=== PATIENT | female | born 1945 | race Caucasian/White ===

== ENCOUNTER → 2017-08-24 16:17 | Outpatient (CLI) | payer MEDICARE, OTHER, SELFPAY ==
[2017-08-24 17:43] LABS: Rheumatoid Factor < 8.6 IU/mL (<12.0)
[2017-08-28 22:33] LABS: ANA Screen NEGATIVE (Negative); DNA Antibody Crithidia IFA NEGATIVE (Negative); Rheumatoid Factor <14 IU/mL; Sjogren Antiboday SS-A <1.0 NEG AI (<1.0 NEGATIVE); Sjogren Antiboday SS-B <1.0 NEG AI (<1.0 NEGATIVE); Sm Antibody <1.0 NEG AI (<1.0 NEGATIVE); Sm/RNP Antibody <1.0 NEG AI (<1.0 NEGATIVE)
[2017-09-04 13:42] LABS: SS A Ro Sjogrens Antibody < 1.0; SS B La Sjogrens Antibody < 1.0
== END ==
PROVIDERS: Family Provider Physician Assistant; PCP Physician Assistant; Visit Provider Physician Assistant
DX: R68.2 Dry mouth, unspecified (principal); M35.00 Sjogren syndrome, unspecified
CPT/HCPCS: 36415; 86038; 86235; 86430

== ENCOUNTER → 2017-09-24 10:58 | Outpatient (CLI) | payer MEDICARE, OTHER, SELFPAY ==
--- NOTE | 2017-09-24 | DI.MG.S_ITS ---
BILATERAL DIGITAL SCREENING MAMMOGRAM 3D/2D WITH CAD: 09/24/2017 CLINICAL: Routine screening. Comparison is made to exams dated: 05/29/2016 mammogram, 02/20/2014 mammogram, and 02/04/2013 mammogram - [facility]. The tissue of both breasts is predominantly fatty. Current study was also evaluated with a Computer Aided Detection (CAD) system. No significant masses, calcifications, or other findings are seen in either breast. There has been no significant interval change. IMPRESSION: NEGATIVE There is no mammographic evidence of malignancy. A 1 year screening mammogram is recommended. This exam was interpreted at Station ID: [id number]. NOTE: For mammograms, a report in lay terms will be sent to the patient. Approximately 15% of breast malignancies will not be visualized mammographically. In the management of a palpable breast mass, a negative mammogram must not discourage biopsy of a clinically suspicious lesion. Electronically Signed By: Destinee bains/yobnai:09/24/2017 13:22:57 letter sent: Normal Exam ACR BI-RADS Category 1: Negative 3341F
== END ==
PROVIDERS: Family Provider Physician Assistant; PCP Physician Assistant; Visit Provider Physician Assistant
DX: Z12.31 Encounter for screening mammogram for malignant neoplasm of breast (principal)
CPT/HCPCS: 77063; 77067

== ENCOUNTER → 2017-12-27 20:29 | Outpatient (CLI) | payer MEDICARE, OTHER, SELFPAY ==
--- NOTE | 2017-12-27 20:34 | DI.MRI.S_ITS ---
PROCEDURE: MR ANKLE RT WO CON INDICATIONS: ACHILLES RUPTURE TECHNIQUE: Noncontrast sagittal T1 spin echo and T2 fast spin echo with fat saturation, axial proton density fast spin echo and T2 fast spin echo with fat saturation, coronal T1 spin echo and T2 fast spin echo with fat saturation through the ankle/hindfoot. COMPARISON: None. FINDINGS: Image quality: Excellent. Bones and joints: No discrete fracture identified. There is marrow edema involving the lateral malleolus and lateral talar dome suggestive of contusions although the exact age is indeterminate. This is in the region of the posterior tibiofibular ligament which demonstrates intrasubstance and adjacent soft tissue edema and could reflect sprain. Theoretically, long-standing osteochondral defect at the lateral talar dome is possible. No hindfoot coalitions. No pathologic joint effusions. Medial structures: The posterior tibialis, flexor digitorum longus, and flexor hallucis longus tendons are intact. The posterior tibial neurovascular bundle appears normal within the tarsal tunnel, without extrinsic mass effect. The deep layer (anterior and posterior tibiotalar ligaments) and superficial layer (tibionavicular, tibiospring, and tibiocalcaneal ligaments) of the deltoid ligament appear normal. The spring ligament components (superomedial calcaneonavicular, medioplantar oblique calcaneonavicular, and inferoplantar longitudinal ligaments) are intact. Lateral structures: The anterior talofibular, calcaneofibular, and posterior talofibular ligaments appear intact. More superiorly, the anterior tibiofibular ligament appears intact The tibiofibular syndesmosis is normal in width at 2 mm or less. The peroneus longus and brevis tendons appear intact although there is peroneus brevis tendinopathy and possible subtle longitudinal split tear image 22 series 3. Adjacent bony peroneal tubercle and retrotrochlear prominence are normal in size. The sinus tarsi demonstrates normal fatty signal, without edema, fibrosis, or cyst formation. Visualized sinus tarsi components (cervical ligament, interosseous talocalcaneal ligament, roots of the inferior extensor retinaculum) appear normal. The calcaneonavicular and calcaneocuboid components of the bifurcate ligament appear intact. The dorsal calcaneocuboid ligament appears intact. Anterior structures: The tibialis anterior, extensor hallucis longus, and extensor digitorum longus tendons appear intact. The dorsal talonavicular ligament appears intact. Posterior and plantar structures: Postsurgical changes related to prior Achilles tendon reconstruction however there is intrasubstance signal change in T2 hyperintensity/edema and appearance of partial high grade rupture image 17 series 6. The defect appears approximately 2.1 cm in cephalocaudad dimension and is located approximately 5.9 cm cephalad to the calcaneal attachment. Mild medial band plantar fasciitis, technically age-indeterminate finding. IMPRESSION: High-grade partial rupture of the Achilles tendon (status post previous repair) as detailed above. Soft tissue edema at the posterior aspect of the distal tibiofibular syndesmosis suggestive of posterior tibiofibular sprain, and tibiofibular syndesmotic injury. Adjacent marrow edema in the fibula and talar dome could reflect reactive change however differential includes pre-existing lateral talar dome osteochondral defect and/or acute marrow contusions as discussed above. Please correlate clinically. No definite tibiofibular syndesmotic malalignment identified. Age-indeterminate peroneal brevis tendinopathy and small longitudinal split tear. Mild medial band plantar fasciitis. Dictated by: Robert Adame M.D. on 12/31/2017 at 8:56 Approved by: Robert Adame M.D. on 12/31/2017 at 9:13
== END ==
PROVIDERS: Family Provider Physician Assistant; PCP Physician Assistant; Visit Provider Podiatrist
DX: S86.011A Strain of right Achilles tendon, initial encounter (principal); M72.2 Plantar fascial fibromatosis
CPT/HCPCS: 73721

== ENCOUNTER → 2018-06-15 08:05 | Outpatient (CLI) | payer MEDICARE, OTHER, SELFPAY ==
[2018-06-15 09:19] LABS: Hematocrit 39.6 % (36-46); Hemoglobin 13.1 g/dL (12.0-16.0); Mean Corpuscular HGB Conc 33.1 % (30-36); Mean Corpuscular Hemoglobin 30.6 PG (26-34); Mean Corpuscular Volume 92.6 fL (80-100); Platelet Count 239 X10^3/uL (150-400); Red Blood Cell Count 4.27 X10^6/uL (4.0-5.2); Red Cell Distribution Width 12.4 % (11.6-14.8); White Blood Cell Count 7.1 X10^3/uL (4.5-11.0)
[2018-06-15 09:27] LABS: Alanine Aminotransferase 20 IU/L (9-52); Albumin 3.9 g/dL (3.5-5.0); Albumin Globulin Ratio 1.4 (1.0-2.8); Alkaline Phosphatase 90 U/L (38-126); Aspartate Aminotransferase 30 IU/L (14-36); BUN Creatinine Ratio 17.5 (6-22); Bilirubin Total 0.2 mg/dL (0.2-1.3); Blood Urea Nitrogen 14 mg/dL (7-17); Calcium 8.9 mg/dL (8.4-10.2); Carbon Dioxide 29 mmol/L (22-32); Chloride 101 mmol/L (98-107); Cholesterol 181 mg/dL (140-199); Estimated Glomerular Filt Rate > 60.0 mL/min (>60); Globulin 2.7 g/dL (1.7-4.1); Glucose 102 mg/dL (80-110); HDL Cholesterol 36 mg/dL (40-60); HEMOLYSIS < 15 (0-50); LDL Cholesterol Calculated 117 mg/dL (<100); Potassium 4.4 mmol/L (3.4-5.1); Sodium 140 mmol/L (137-145); Total Protein 6.6 g/dL (6.3-8.2); Triglycerides 140 mg/dL (35-150)
[2018-06-15 10:09] LABS: Neutrophils Absolute Manual 4686 /uL (3000-5900); Total Cells Counted 100
[2018-06-15 10:10] LABS: RBC Morphology Normal Morphology
[2018-06-15 11:19] LABS: Thyroid Stimulating Hormone 4.94 uIU/mL (0.47-4.68)
[2018-06-17 18:02] LABS: ANA Screen, IFA Negative (Negative)
== END ==
PROVIDERS: PCP Internal Medicine; Visit Provider Internal Medicine
DX: I10 Essential (primary) hypertension (principal); R68.2 Dry mouth, unspecified; E78.6 Lipoprotein deficiency; E03.9 Hypothyroidism, unspecified
CPT/HCPCS: 36415; 80053; 80061; 84443; 85025; 86038

== ENCOUNTER → 2018-07-05 17:33 | Outpatient (CLI) | payer MEDICARE, OTHER, SELFPAY ==
--- NOTE | 2018-07-05 17:35 | DI.MRI.S_ITS ---
PROCEDURE: MR SHOULDER RT WO CON INDICATIONS: DISORDER OF SYNOVIUM AND TENDON, RIGHT TECHNIQUE: Noncontrast oblique coronal T2 fast spin echo with fat saturation, oblique sagittal T1 spin echo and T2 fast spin echo with fat saturation, axial T1 spin echo and T2 fast spin echo with fat saturation through the shoulder. COMPARISON: [facility], CR, XR SHOULDER 2+ VIEWS RIGHT, 07/02/2018, 9:58. FINDINGS: Image quality: Shoulder pain resulted in the patient requesting that the examination stopped to reposition herself, and 4 pulse sequences were obtained of the patient requested termination of the study before all pulse sequences couldn't be acquired. The study is diagnostic, in my opinion, for the purposes of documenting absence of rotator cuff tear or trauma.. Rotator cuff: The supraspinatus, infraspinatus, and subscapularis tendons appear intact throughout but there is thickening of and edema within the middle and lateral thirds of the supraspinatus tendon. Tendinopathy appears present, likely due to chronic impingement given the presence of moderate degenerative osteoarthritis at the a.c. joint producing fibrous and osseous hypertrophy directed inferiorly at the normal course of the supraspinatus tendon and also the presence of inferior tilt of the lateral acromion further impinging on this area. Sagittal images demonstrate no muscle atrophy. Bones and bursae: No bone marrow contusions or fractures. No acromioclavicular joint degeneration. The acromion demonstrates conventional anatomy, without an os acromiale. No pathologic subacromial-subdeltoid or subcoracoid bursal fluid is present. Capsule and soft tissues: In the absence of intra-articular contrast, the labrum and glenohumeral ligaments appear intact. The long head of the biceps tendon demonstrates normal location and morphology. The rotator interval appears normal, without fibrosis. The coracohumeral ligament is normal in thickness. There is subacromial/subdeltoid mild excess fluid within the bursal space indicating presence of bursitis. IMPRESSION: Chronic impingement syndrome likely is present given the moderate fibrous and osseous hypertrophy directed inferiorly from the a.c. joint degeneration at the normal course of the supraspinatus tendon. Additional impingement is contributed by inferior tilt of the lateral acromion and the lateral two thirds of the supraspinatus tendon is moderately edematous and thickened. Moderate excess of bursal fluid in the subacromial/subdeltoid bursal space indicates presence of bursitis. No osseous trauma found, no marrow space lesion identified. Dictated by: Mark Rubio M.D. on 07/09/2018 at 15:05 Approved by: Mark Rubio M.D. on 07/09/2018 at 15:10
== END ==
PROVIDERS: PCP Internal Medicine; Visit Provider Orthopaedic Surgery
DX: M67.911 Unspecified disorder of synovium and tendon, right shoulder (principal); M75.41 Impingement syndrome of right shoulder
CPT/HCPCS: 73221

== ENCOUNTER → 2018-07-19 15:04 | Outpatient (CLI) | payer MEDICARE, OTHER, SELFPAY ==
--- NOTE | 2018-07-19 | DI.CT.S_ITS ---
PROCEDURE: CT ABDOMEN PELVIS WO CON INDICATIONS: RIGHT FLANK PAINFUL HEMATURIA TECHNIQUE: Noncontrast 5 mm thick sections acquired from the diaphragms to the symphysis. 5 mm coronal and sagittal reformats were then performed. For radiation dose reduction, the following was used: automated exposure control, adjustment of mA and/or kV according to patient size. COMPARISON: [facility], CT, KIDNEY/ URETER/BLADDER, 08/24/2014, 0:59. FINDINGS: Image quality: Excellent. ABDOMEN: Lung bases: Lung bases are clear. Heart size is normal. Coronary artery calcifications. Solid organs: Again noted is diffuse hepatic steatosis, prominent. There is no focal liver mass identified. Gallbladder is unremarkable. Pancreas is normal in contours. Spleen is normal in size. No adrenal nodules. There is no evidence of renal stone or hydronephrosis or ureteral stone. There is a calcification present in the right abdomen on image 39/4 which is not in the right ureter. It was present on the previous study as well. Peritoneum and bowel: Unenhanced bowel loops demonstrate normal wall thickness and caliber. No free fluid or air. Sigmoid diverticulosis without evidence of diverticulitis. Nodes and vessels: No retroperitoneal or mesenteric adenopathy by size criteria. Aorta and inferior vena cava are normal in caliber. Miscellaneous: No ventral hernias. PELVIS: Genitourinary: Bladder wall thickness is normal. Remote hysterectomy. Miscellaneous: No inguinal hernias or adenopathy. Bones: No suspicious bony lesions. No vertebral body compression fractures. IMPRESSION: 1. No findings to explain right flank pain or hematuria. 2. Diffuse hepatic steatosis. 3. Remote hysterectomy Dictated by: Messi Russell M.D. on 07/19/2018 at 16:33 Approved by: Messi Russell M.D. on 07/19/2018 at 16:41
== END ==
PROVIDERS: PCP Internal Medicine; Visit Provider Student in an Organized Health Care Education/Training Program
DX: R10.9 Unspecified abdominal pain (principal); R31.9 Hematuria, unspecified; K76.0 Fatty (change of) liver, not elsewhere classified; K57.30 Diverticulosis of large intestine without perforation or abscess without bleeding; Z90.710 Acquired absence of both cervix and uterus
CPT/HCPCS: 74176

== ENCOUNTER → 2018-12-12 16:23 | Outpatient (ROUT) | payer MEDICARE, OTHER, SELFPAY ==
[2018-12-12 16:38] LABS: Alanine Aminotransferase 34 IU/L (9-52); Albumin Globulin Ratio 1.5 (1.0-2.8); Alkaline Phosphatase 82 U/L (38-126); Aspartate Aminotransferase 31 IU/L (14-36); BUN Creatinine Ratio 18.9 (6-22); Bilirubin Total 0.3 mg/dL (0.2-1.3); Blood Urea Nitrogen 17 mg/dL (7-17); Calcium 9.5 mg/dL (8.4-10.2); Carbon Dioxide 32 mmol/L (22-32); Chloride 98 mmol/L (98-107); Cholesterol 215 mg/dL (140-199); Estimated Glomerular Filt Rate > 60.0 mL/min (>60); Globulin 2.7 g/dL (1.7-4.1); Glucose 80 mg/dL (80-110); HDL Cholesterol 48 mg/dL (40-60); HEMOLYSIS < 15 (0-50); LDL Cholesterol Calculated 145 mg/dL (<100); Potassium 3.9 mmol/L (3.4-5.1); Sodium 138 mmol/L (137-145); Total Protein 6.7 g/dL (6.3-8.2); Triglycerides 110 mg/dL (35-150)
[2018-12-12 16:39] LABS: Add Manual Diff / Slide Review NO; Basophils Absolute Auto 0 /uL (0-100); Basophils Percent Auto 0.3 % (0-2); Eosinophils Absolute Auto 0 /uL (0-450); Hematocrit 40.4 % (36-46); Hemoglobin 13.5 g/dL (12.0-16.0); Lymphocytes Absolute Auto 2000 /uL (1100-4500); Lymphocytes Percent Auto 17.8 % (25-40); Mean Corpuscular HGB Conc 33.3 % (30-36); Mean Corpuscular Hemoglobin 31.2 PG (26-34); Mean Corpuscular Volume 93.5 fL (80-100); Monocytes Absolute Auto 500 /uL (0-900); Monocytes Percent Auto 4.6 % (3-14); Neutrophils Absolute Auto 8700 /uL (1500-7000); Neutrophils Percent Auto 77.3 % (50-75); Platelet Count 279 X10^3/uL (150-400); Red Blood Cell Count 4.32 X10^6/uL (4.0-5.2); White Blood Cell Count 11.3 X10^3/uL (4.5-11.0)
== END ==
PROVIDERS: PCP Internal Medicine; Visit Provider Physician Assistant
DX: I10 Essential (primary) hypertension (principal); E03.9 Hypothyroidism, unspecified; E78.2 Mixed hyperlipidemia
CPT/HCPCS: 80053; 80061; 84439; 84443; 85025

== ENCOUNTER → 2018-12-19 08:58 | Outpatient (CLI) | payer MEDICARE, OTHER, SELFPAY ==
--- NOTE | 2018-12-19 | DI.MG.S_ITS ---
BILATERAL DIGITAL SCREENING MAMMOGRAM 3D/2D WITH CAD: 12/19/2018 CLINICAL: Routine screening. Comparison is made to exams dated: 09/24/2017 mammogram, 05/29/2016 mammogram, and 02/20/2014 mammogram - [facility]. There are scattered fibroglandular elements in both breasts. Current study was also evaluated with a Computer Aided Detection (CAD) system. No significant masses, calcifications, or other findings are seen in either breast. There has been no significant interval change. IMPRESSION: NEGATIVE There is no mammographic evidence of malignancy. A 1 year screening mammogram is recommended. This exam was interpreted at Station ID: [id number]. NOTE: For mammograms, a report in lay terms will be sent to the patient. Approximately 15% of breast malignancies will not be visualized mammographically. In the management of a palpable breast mass, a negative mammogram must not discourage biopsy of a clinically suspicious lesion. Electronically Signed By: Mark ching/yobani:12/19/2018 10:10:43 letter sent: Normal Exam ACR BI-RADS Category 1: Negative 3341F
== END ==
PROVIDERS: PCP Internal Medicine; Visit Provider Physician Assistant
DX: Z12.31 Encounter for screening mammogram for malignant neoplasm of breast (principal)
CPT/HCPCS: 77063; 77067

== ENCOUNTER → 2019-07-18 11:05 | Outpatient (CLI) | payer MEDICARE, OTHER, SELFPAY ==
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
[2019-07-18 12:37] LABS: Add Manual Diff / Slide Review NO; Basophils Absolute Auto 0 /uL (0-100); Basophils Percent Auto 0.1 % (0-2); Eosinophils Absolute Auto 0 /uL (0-450); Hematocrit 38.3 % (36-46); Hemoglobin 13.2 g/dL (12.0-16.0); Lymphocytes Absolute Auto 1700 /uL (1100-4500); Lymphocytes Percent Auto 31.4 % (25-40); Mean Corpuscular HGB Conc 34.5 % (30-36); Mean Corpuscular Hemoglobin 31.3 PG (26-34); Mean Corpuscular Volume 90.9 fL (80-100); Monocytes Absolute Auto 400 /uL (0-900); Monocytes Percent Auto 7.4 % (3-14); Neutrophils Absolute Auto 3400 /uL (1500-7000); Neutrophils Percent Auto 61.1 % (50-75); Platelet Count 248 X10^3/uL (150-400); Red Blood Cell Count 4.21 X10^6/uL (4.0-5.2); Red Cell Distribution Width 13.2 % (11.6-14.8); White Blood Cell Count 5.5 X10^3/uL (4.5-11.0)
[2019-07-18 13:02] LABS: Alanine Aminotransferase 25 IU/L (<35); Albumin 4.1 g/dL (3.5-5.0); Albumin Globulin Ratio 1.3 (1.0-2.8); Alkaline Phosphatase 106 U/L (38-126); Aspartate Aminotransferase 42 IU/L (14-36); BUN Creatinine Ratio 15.2 (6-22); Bilirubin Total 0.5 mg/dL (0.2-1.3); Blood Urea Nitrogen 14 mg/dL (7-17); Calcium 9.4 mg/dL (8.4-10.2); Carbon Dioxide 30 mmol/L (22-32); Chloride 102 mmol/L (98-107); Cholesterol 192 mg/dL (140-199); Estimated Glomerular Filt Rate 59.4 mL/min (>60); Globulin 3.2 g/dL (1.7-4.1); Glucose 96 mg/dL (80-110); HDL Cholesterol 33 mg/dL (40-60); HEMOLYSIS < 15 (0-50); LDL Cholesterol Calculated 123 mg/dL (<100); Potassium 4.3 mmol/L (3.4-5.1); Sodium 138 mmol/L (137-145); Total Protein 7.3 g/dL (6.3-8.2); Triglycerides 179 mg/dL (35-150)
[2019-07-18 13:08] LABS: NT-proBNP (BNP-Adult 18+) 62 pg/mL (<450)
[2019-07-18 13:57] LABS: Free T4, Direct Thyroxine 1.22 ng/dL (0.78-2.19)
== END ==
PROVIDERS: PCP Physician Assistant; Referring Provider Physician Assistant; Visit Provider Physician Assistant
DX: R06.02 Shortness of breath (principal); I10 Essential (primary) hypertension; J30.9 Allergic rhinitis, unspecified; E03.9 Hypothyroidism, unspecified; E78.2 Mixed hyperlipidemia
CPT/HCPCS: 36415; 71046; 80053; 80061; 83880; 84439; 84443; 85025

== ENCOUNTER → 2019-08-05 10:42 | Outpatient (CLI) | payer MEDICARE, OTHER, SELFPAY ==
[2019-08-06 10:50] LABS: COVID19 Sendout NOT DETECTED (Not Detect)
== END ==
PROVIDERS: PCP Physician Assistant; Visit Provider Nurse Practitioner
DX: Z01.812 Encounter for preprocedural laboratory examination (principal)
CPT/HCPCS: 87635

== ENCOUNTER → 2019-08-08 10:50 | Outpatient (CLI) | payer MEDICARE, OTHER, SELFPAY ==
--- NOTE | 2019-08-15 08:21 | PM.PFT.1 ---
Pulmonary Function Test Referral & Results Date Patient Seen: 08/08/19 Requesting provider: Katherine Gusman Results: The spirometry demonstrates an FVC of 2.46 L which is 97% of predicted. The FEV1 was measured at 1.98 L which is 105% of predicted. The FEV1/FVC ratio was 81 which is 107% of predicted. Following the administration of bronchodilator there was no appreciable change to above normal numbers. Lung volumes show an SVC of 2.41 L which is 94% of predicted. The diffusing capacity was measured at 17.30 which is 80% of predicted. The maximum voluntary ventilation was minimally reduced Interpretation: This study demonstrates normal spirometry There may be a slight reduction diffusing capacity but this could also be interpreted as normal, depending on whether not patient is anemic Basically this is probably a normal pulmonary function test
== END ==
PROVIDERS: PCP Physician Assistant; Referring Provider Physician Assistant; Visit Provider Physician Assistant
DX: J45.909 Unspecified asthma, uncomplicated (principal); Z87.891 Personal history of nicotine dependence; R06.02 Shortness of breath
CPT/HCPCS: 94060; 94726; 94729

== ENCOUNTER → 2019-12-06 11:26 | Outpatient (CLI) | payer MEDICARE, OTHER, SELFPAY ==
[2019-12-06 14:30] LABS: TSH w/ Reflex to FT4 1.46 uIU/mL (0.47-4.68)
== END ==
PROVIDERS: PCP Physician Assistant; Referring Provider Physician Assistant; Visit Provider Physician Assistant
DX: E03.9 Hypothyroidism, unspecified (principal)
CPT/HCPCS: 36415; 84443

== ENCOUNTER → 2020-05-27 12:28 | Outpatient (CLI) | payer MEDICARE, OTHER, SELFPAY ==
--- NOTE | 2020-05-27 | DI.RAD.S_ITS ---
PROCEDURE: XR LUMBAR SPINE 2-3V INDICATIONS: Spinal Stenosis TECHNIQUE: 3 views of the lumbar spine were acquired. COMPARISON: [facility], CT, CT ABDOMEN PELVIS WO CON, 07/19/2018, 15:10. FINDINGS: Bones: 5 [id number] vertebrae are present. There is normal bony alignment. No vertebral body compression fractures. No suspicious bony lesions. Soft tissues: Overlying bowel gas pattern is normal. No suspicious soft tissue calcifications. IMPRESSION: Degenerative disc disease along the thoracolumbar junction and lumbosacral spine is moderately severe superiorly and less prominent at L4-5 and L5-S1. Facet osteoarthritis from L1 through S1 is relatively prominent, to the degree that ankylosis or surgical fusion has been performed. No metallic surgical clips are present in this area. There is grade 1 anterolisthesis of L3 on L4, associated with degenerative disc disease and facet osteoarthritic change. Dictated by: Mark Rubio M.D. on 05/27/2020 at 17:21 Approved by: Mark Rubio M.D. on 05/27/2020 at 17:24
--- NOTE | 2020-05-27 12:43 | DI.CT.S_ITS ---
PROCEDURE: CT HEAD/BRAIN WO CON INDICATIONS: Mild cognitive impairment, so stated TECHNIQUE: Noncontrast 4.5 mm thick angled axial sections acquired from the foramen magnum to the vertex, with coronal and sagittal reformats. For radiation dose reduction, the following was used: automated exposure control, adjustment of mA and/or kV according to patient size. COMPARISON: [facility], CT, HEAD WITHOUT CONTRAST, 11/04/2014, 22:19. FINDINGS: Image quality: Excellent. CSF spaces: Basal cisterns are patent. No extra-axial fluid collections. The ventricles are symmetric in size and shape. Brain: No intracranial bleeds or masses. There is cerebral volume loss for age, with resultant ventricular and sulcal prominence. There are periventricular and deep white matter chronic small vessel ischemic changes. There is intracranial internal carotid artery atherosclerosis. Skull and face: Calvarium and visualized facial bones appear intact, without suspicious lesions. Sinuses: Visualized sinuses and mastoids are clear. IMPRESSION: Mild microvascular atherosclerotic change in the deep white matter of each hemisphere, no acute disease. Dictated by: Mark Rubio M.D. on 05/27/2020 at 13:02 Approved by: Mark Rubio M.D. on 05/27/2020 at 13:02
[2020-05-27 14:26] LABS: Add Manual Diff / Slide Review NO; Basophils Absolute Auto 0 /uL (0-100); Basophils Percent Auto 0.3 % (0-2); Eosinophils Absolute Auto 200 /uL (0-450); Eosinophils Percent Auto 2.8 % (2-4); Hematocrit 39.7 % (36-46); Hemoglobin 12.9 g/dL (12.0-16.0); Lymphocytes Absolute Auto 1900 /uL (1100-4500); Lymphocytes Percent Auto 28.3 % (25-40); Mean Corpuscular HGB Conc 32.6 % (30-36); Mean Corpuscular Hemoglobin 29.7 PG (26-34); Mean Corpuscular Volume 91.1 fL (80-100); Monocytes Absolute Auto 500 /uL (0-900); Monocytes Percent Auto 7.6 % (3-14); Neutrophils Absolute Auto 4200 /uL (1500-7000); Platelet Count 265 X10^3/uL (150-400); Red Blood Cell Count 4.36 X10^6/uL (4.0-5.2); Red Cell Distribution Width 13.3 % (11.6-14.8); White Blood Cell Count 6.9 X10^3/uL (4.5-11.0)
[2020-05-27 14:49] LABS: Alanine Aminotransferase 18 IU/L (<35); Albumin 4.1 g/dL (3.5-5.0); Albumin Globulin Ratio 1.3 (1.0-2.8); Alkaline Phosphatase 102 U/L (38-126); Aspartate Aminotransferase 35 IU/L (14-36); BUN Creatinine Ratio 15.5 (6-22); Bilirubin Total 0.3 mg/dL (0.2-1.3); Blood Urea Nitrogen 13 mg/dL (7-17); Calcium 9.4 mg/dL (8.4-10.2); Carbon Dioxide 28 mmol/L (22-32); Chloride 102 mmol/L (98-107); Estimated Glomerular Filt Rate > 60.0 mL/min (>60); Globulin 3.1 g/dL (1.7-4.1); Glucose 77 mg/dL (80-110); HEMOLYSIS < 15 (0-50); Potassium 4.1 mmol/L (3.4-5.1); Sodium 138 mmol/L (137-145); Total Protein 7.2 g/dL (6.3-8.2)
[2020-05-27 15:19] LABS: TSH w/ Reflex to FT4 4.38 uIU/mL (0.47-4.68)
[2020-05-27 15:33] LABS: Vitamin B12 > 1000 pg/mL (239-931)
[2020-05-27 17:51] LABS: Vitamin D 25 Hydroxy (D3) 58.7 ng/mL (30.0-100.0)
== END ==
PROVIDERS: PCP Physician Assistant; Referring Provider Physician Assistant; Visit Provider Physician Assistant
DX: M48.061 Spinal stenosis, lumbar region without neurogenic claudication (principal); G31.84 Mild cognitive impairment of uncertain or unknown etiology; M51.35 Other intervertebral disc degeneration, thoracolumbar region; M51.37 Other intervertebral disc degeneration, lumbosacral region; M47.816 Spondylosis without myelopathy or radiculopathy, lumbar region; M47.817 Spondylosis without myelopathy or radiculopathy, lumbosacral region; M43.16 Spondylolisthesis, lumbar region; R29.818 Other symptoms and signs involving the nervous system; F32.9 Major depressive disorder, single episode, unspecified; E55.9 Vitamin D deficiency, unspecified; E03.9 Hypothyroidism, unspecified; E78.5 Hyperlipidemia, unspecified
CPT/HCPCS: 36415; 70450; 72100; 80053; 82306; 82607; 84443; 85025

== ENCOUNTER → 2020-05-29 10:42 | Outpatient (CLI) | payer MEDICARE, OTHER, SELFPAY ==
--- NOTE | 2020-05-29 | DI.MG.S_ITS ---
BILATERAL DIGITAL SCREENING MAMMOGRAM 3D/2D WITH CAD: 05/29/2020 CLINICAL: Routine screening. Comparison is made to exams dated: 12/19/2018 mammogram, 09/24/2017 mammogram, 05/29/2016 mammogram, 02/20/2014 mammogram, and 02/04/2013 mammogram - [facility]. There are scattered fibroglandular elements in both breasts. Current study was also evaluated with a Computer Aided Detection (CAD) system. No significant masses, calcifications, or other findings are seen in either breast. There has been no significant interval change. IMPRESSION: NEGATIVE There is no mammographic evidence of malignancy. A 1 year screening mammogram is recommended. This exam was interpreted at Station ID: [id number]. NOTE: For mammograms, a report in lay terms will be sent to the patient. Approximately 15% of breast malignancies will not be visualized mammographically. In the management of a palpable breast mass, a negative mammogram must not discourage biopsy of a clinically suspicious lesion. Electronically Signed By: Reed head/yobani:05/31/2020 08:29:18 letter sent: Normal Exam ACR BI-RADS Category 1: Negative 3341F
== END ==
PROVIDERS: PCP Physician Assistant; Referring Provider Physician Assistant; Visit Provider Physician Assistant
DX: Z12.31 Encounter for screening mammogram for malignant neoplasm of breast (principal)
CPT/HCPCS: 77063; 77067

== ENCOUNTER → 2020-07-05 11:19 | Outpatient (CLI) | payer MEDICARE, OTHER, SELFPAY ==
--- NOTE | 2020-07-05 | DI.RAD.S_ITS ---
PROCEDURE: XR KNEE RT 3V INDICATIONS: Pain in right knee TECHNIQUE: 3 views of the knee were acquired. COMPARISON: None. FINDINGS: Bones: No fractures or dislocations. No suspicious bony lesions. Lateral patellofemoral joint space narrowing and small marginal osteophyte noted. Soft tissues: Small joint effusion present. Soft tissue calcifications. IMPRESSION: Lateral patellofemoral osteoarthrosis Dictated by: Niko Vázquez M.D. on 07/05/2020 at 15:21 Approved by: Niko Vázquez M.D. on 07/05/2020 at 15:24
== END ==
PROVIDERS: PCP Physician Assistant; Referring Provider Physician Assistant; Visit Provider Physician Assistant
DX: M25.561 Pain in right knee (principal)
CPT/HCPCS: 73562

== ENCOUNTER → 2020-07-20 15:45 | Outpatient (CLI) | payer MEDICARE, OTHER, SELFPAY ==
--- NOTE | 2020-07-20 | DI.MRI.S_ITS ---
PROCEDURE: MR KNEE RT WO CON INDICATIONS: Pain in right knee TECHNIQUE: Noncontrast sagittal PD fast spin echo and T2 fast spin echo with fat saturation, sagittal 3-D FLASH with fat saturation; coronal T1 spin echo and PD fast spin echo with fat saturation, and axial PD fast spin echo with fat saturation through the knee. COMPARISON: [facility], MR, KNEE WITHOUT CONTRAST, 07/12/2016, 10:49. FINDINGS: Image quality: Excellent. Menisci: The medial meniscus is grossly intact. There is ill-defined amorphous high signal intensity within the lateral meniscal body demonstrating superior and inferior articular surface extension, indicating degenerative tearing. Cruciate ligaments: The anterior and posterior cruciate ligaments appear intact. Medial structures: The medial collateral ligament appears intact. Visualized portions of the pes anserinus tendons appear normal. No abnormal bursal fluid. Lateral structures: The lateral collateral ligament demonstrates low-grade T2 signal elevation at the femoral origin. The long and short heads of the biceps femoris tendon appear intact. The popliteus tendon appears normal. Iliotibial band appears normal. Anterior structures: The quadriceps and patellar tendons appear intact. Moderate T2 signal elevation within the quadriceps and patellar tendons at the patellar insertion sites. Patellar alignment is normal. No femoral trochlear dysplasia or ventral trochlear prominence. No edema in the infrapatellar fat pad. Bones and cartilage: No bone marrow contusions or fractures. There is mild subchondral degenerative marrow edema within the lateral femoral trochlea, the patellar apex and lateral patellar facet. Moderate tricompartmental periarticular osteophyte formation is present. Mild articular cartilage loss diffusely overlies the weight-bearing aspects of the medial femoral condyle and medial tibial plateau, as well as the lateral femoral condyle and lateral tibial plateau. Superimposed high-grade articular cartilage loss overlies the mid/posterior weight-bearing aspect of the lateral femoral condyle. Severe articular cartilage loss overlies the lateral patellar facet and lateral femoral trochlea. Joint space: There is a moderate knee joint effusion and a moderate Burrows's cyst. Normal appearing synovial plicae are incidentally noted. IMPRESSION: 1. Tricompartmental osteoarthritis with associated articular cartilage loss, worst in the patellofemoral and lateral compartments. 2. Quadriceps and patellar tendinopathy. 3. Knee joint effusion and Burrows's cyst. 4. Low-grade partial thickness lateral collateral ligament tear. Dictated by: Vandana Cerda M.D. on 07/20/2020 at 16:56 Approved by: Vandana Cerda M.D. on 07/20/2020 at 16:58
== END ==
PROVIDERS: PCP Physician Assistant; Referring Provider Physician Assistant; Visit Provider Physician Assistant
DX: M17.11 Unilateral primary osteoarthritis, right knee (principal); M25.461 Effusion, right knee; M71.21 Synovial cyst of popliteal space [Baker], right knee; S83.421A Sprain of lateral collateral ligament of right knee, initial encounter
CPT/HCPCS: 73721

== ENCOUNTER → 2020-07-30 09:21 | Outpatient (CLI) | payer MEDICARE, OTHER, SELFPAY ==
--- NOTE | 2020-07-30 09:22 | DI.MRI.S_ITS ---
PROCEDURE: MR LUMBAR SPINE WO CON INDICATIONS: Spinal stenosis, lumbar region TECHNIQUE: Noncontrast sagittal T1 spin echo and T2 fast echo, sagittal STIR, axial T1 and T2 fast spin echo through the lumbar spine. In cases with scoliosis, additional coronal T2 fast spin echo may be performed. COMPARISON: [facility], CT, CT ABDOMEN PELVIS WO CON, 07/19/2018, 15:10. [facility] [place] , MR, LUMBAR SPINE W&W/O CONTRAST, 10/11/2009, 17:49. [facility] [place], CR, XR LUMBAR SPINE WITH OBLIQUES, 07/19/2020, 13:13. [facility], MR, L-SPINE WITHOUT CONTRAST, 11/25/2010, 18:23. FINDINGS: Image quality: This examination is limited by involuntary motion artifact. Images are repeated, with some improvement. Alignment and Curvature: There is accentuated lumbar lordosis. There is minimal retrolisthesis seen at L1-L2. Minimal anterolisthesis is seen at L3-L4. Bone Marrow: Marrow is of normal overall signal. No acute vertebral body compression fractures. Spinal Cord: Conus medullaris terminates at the L1 level. Visualized cord demonstrates normal signal and size. Paraspinous Soft Tissues: No paravertebral masses. Postoperative changes are seen throughout the posterior paraspinous soft tissues L2 through L5. Postoperative changes are seen, with removal of prominent portions of the posterior elements. Bone grafting material is noted. The bony postoperative changes are much better seen by prior CT. T12-L1: No significant abnormality is seen. L1-L2: Moderate loss of disc height is seen. Loss of disc signal is seen. Moderate generalized disc bulge is seen. Moderate facet joint hypertrophy is seen. Moderate to severe bilateral neural foraminal narrowing can be seen. There is a degree of compression seen upon the exiting nerve roots. Mild to moderate central canal narrowing is seen. The degree of central canal narrowing is improved compared to 2011. L2-L3: Moderate loss of disc height is seen. Loss of disc signal is seen. Moderate generalized disc bulge is seen. Moderate to prominent facet hypertrophy is seen. There is moderate to severe bilateral neural foraminal narrowing seen. There is a degree of compression seen upon the exiting nerve roots. The central canal is widely patent. When comparison is made with the prior images, these findings are similar. L3-L4: Mild loss of disc height is seen. Loss of disc signal is seen. At least moderate disc bulge is seen. Moderate to prominent facet hypertrophy is seen. There is moderate to severe bilateral neural foraminal narrowing seen, left worse than right. There is moderate to severe central canal narrowing seen. The degree of central canal narrowing is worsened compared to 2011. L4-L5: The disc height and disk signal are well-preserved. Mild generalized disc bulge is seen. Moderate facet joint hypertrophy is seen. No significant neural foraminal or central canal narrowing can be seen. Stable from the prior study. L5-S1: The disc height and disk signal are well-preserved. No significant disc bulge is seen. No significant neural foraminal or central canal narrowing can be seen. No significant change from the prior. IMPRESSION: Extensive lower lumbar spine postoperative change is seen. Compared to 2011, the degree of central canal narrowing at L3-L4 has progressed. The degree of central canal narrowing at L1-L2 is improved compared to 2011. Dictated by: John Lisa M.D. on 07/30/2020 at 13:19 Approved by: John Lisa M.D. on 07/30/2020 at 13:26
== END ==
PROVIDERS: PCP Physician Assistant; Referring Provider Physical Medicine & Rehabilitation Pain Medicine; Visit Provider Physical Medicine & Rehabilitation Pain Medicine
DX: M48.062 Spinal stenosis, lumbar region with neurogenic claudication (principal)
CPT/HCPCS: 72148

== ENCOUNTER 2021-01-06 17:42 | Emergency (ER) | payer MEDICARE, OTHER, SELFPAY ==
[2021-01-06 17:47] VITALS: BP 160/90; PULSE 93; RESP 18; TEMP 36.7; O2SAT 96; BMI 41.9
--- NOTE | 2021-01-06 18:05 | PC.NURSE ---
Patient had L3-4 spinal fusion 4 weeks ago. Starting 2 weeks ago developed weakness to bilateral lower extremities resulting in 5 significant falls but has not hit her head or had LOC.
--- NOTE | 2021-01-06 18:43 | DI.CT.S_ITS ---
PROCEDURE: CT LUMBAR SPINE W CON INDICATIONS: post surgical now falling TECHNIQUE: After the administration of intravenous Isovue contrast, 3 mm thick sections acquired through the levels of interest. Sagittal and coronal reformats were then constructed. For radiation dose reduction, the following was used: automated exposure control. COMPARISON: [facility], MR, MR LUMBAR SPINE WO CON, 07/30/2020, 9:30. FINDINGS: Image quality: Excellent. PARASPINAL AREA: There is no paraspinal soft tissue mass or fluid collection. The visualized kidneys and adrenal glands are grossly normal. The aorta has a normal caliber. BONES: Postoperative changes discectomy and pedicular screw and elias fixation at L3-4. LUMBAR DISC LEVELS: L1-L2: Disc height loss and endplate degenerative changes with intradiscal gas, disc osteophytes , and facet arthrosis cause severe bilateral foraminal stenosis. The central canal has mild stenosis. L2-L3: Disc height loss and endplate degenerative changes with intradiscal gas, disc osteophytes, and facet arthrosis cause moderate right severe left foraminal stenosis. The central canal has mild stenosis. L3-L4: Postoperative changes of discectomy and interbody fusion. Disc osteophytes and facet arthrosis cause right and mild left foraminal stenosis. The central canal is patent. The central canal demonstrates apparent moderate stenosis but is not well evaluated by CT. L4-L5: There is no significant disc bulge. The foramina and central canal are patent by CT. L5-S1: There is no significant disc bulge. The foramina and central canal are patent by CT. IMPRESSION: 1. Postoperative changes at L3-4 with no abscess or other acute postoperative complication. 2. Multilevel apparent foraminal and central canal stenosis as above. However note that the discs and central canal are not well evaluated with CT. Dictated by: Unruly Goel M.D. on 01/06/2021 at 20:26 Approved by: Unruly Goel M.D. on 01/06/2021 at 20:34
--- NOTE | 2021-01-06 18:43 | DI.CT.S_ITS ---
PROCEDURE: CT HEAD/BRAIN WO CON INDICATIONS: falling TECHNIQUE: Noncontrast 4.5 mm thick angled axial sections acquired from the foramen magnum to the vertex, with coronal and sagittal reformats. For radiation dose reduction, the following was used: automated exposure control, adjustment of mA and/or kV according to patient size. COMPARISON: [facility], CT, CT HEAD/BRAIN WO CON, 05/27/2020, 12:42. FINDINGS: Image quality: Excellent. CSF spaces: Basal cisterns are patent. No extra-axial fluid collections. The ventricles are symmetric in size and shape. Brain: No intracranial bleeds or masses. There is cerebral volume loss for age, with resultant ventricular and sulcal prominence. There are periventricular and deep white matter chronic small vessel ischemic changes. There is intracranial internal carotid artery atherosclerosis. Skull and face: Calvarium and visualized facial bones appear intact, without suspicious lesions. Sinuses: Visualized sinuses and mastoids are clear. IMPRESSION: 1. No acute intracranial abnormality. 2. Microvascular ischemic disease and age related cerebral volume loss. Dictated by: Unruly Goel M.D. on 01/06/2021 at 20:06 Approved by: Unruly Goel M.D. on 01/06/2021 at 20:08
--- NOTE | 2021-01-06 18:45 | ED.BACK ---
HPI - Back Pain/Injury General Chief Complaint: Back Pain/Injury Stated Complaint: injuries from a fall 2 days ago Time Seen by Provider: 01/06/21 18:17 Source: patient Limitations: no limitations History of Present Illness HPI Narrative: Patient is a 75-year-old female history of hypertension and recent lumbar fusion end of November presenting today with increasing falls. She states that she has been doing okay but the last week she wakes up in the morning with intense paralyzing pain in both legs, it takes her 20 minutes to get to the bathroom she did not previously have this much pain. She then says pain gets controlled throughout the day but feels like her feet get away from her and she falls down. She says that she stands at the counter and her feet just start moving without her wanting them to and she falls. She has no fever or chills. She has no numbness tingling or weakness. She has no loss of bowel or urine. She has no abdominal pain nausea or vomiting. She denies any chest pain or palpitations. No shortness of breath. Related Data Home Medications Medication Instructions Recorded Confirmed VITAMIN D (Vitamin D3) 1,000 unit PO QDAY #0 09/26/12 08/31/20 albuterol sulfate 90 mcg/actuation 1 puff INH PRN #8.5 gm 09/26/12 08/31/20 aerosol inhaler (Proventil HFA) cyanocobalamin (vitamin B-12) 500 1,000 mcg PO QDAY #0 09/26/12 08/31/20 mcg tablet (Vitamin B-12) diltiazem HCl 240 mg capsule,24 240 mg PO DAILY 10/14/17 08/31/20 hr,extended release omeprazole magnesium 10 mg oral 10 mg PO DAILY 10/14/17 08/31/20 suspension,delayed release (Prilosec) aspirin 81 mg tablet,delayed 81 mg PO DAILY 08/30/18 08/31/20 release carvedilol 6.25 mg tablet 6.25 mg PO BID 08/30/18 08/31/20 venlafaxine 150 mg 150 mg PO DAILY 08/30/18 08/31/20 capsule,extended release 24 hr RespirGameotic Dreamstation Auto BIPAP #1 ea 09/03/18 08/31/20 levothyroxine 125 mcg capsule 125 mcg PO QTUTH cap 12/11/18 08/31/20 Previous Rx's Medication Instructions Recorded cephalexin 500 mg capsule 500 mg PO BID 7 Days #14 cap 01/06/21 Allergies Allergy/AdvReac Type Severity Reaction Status Date / Time lisinopril [LISINOPRIL] Allergy Mild ANGIOEDEMA Verified 08/31/20 17:48 Penicillins [PENICILLINS] Allergy Mild RASH Verified 08/31/20 17:48 doxycycline AdvReac GI upset Verified 08/31/20 17:48 Review of Systems Review of Systems Narrative: GENERAL: Denies chills, fatigue, malaise, fever, sweats, travel HEENT: Denies sinus pain, ear pain, sore throat, difficulty swallowing, neck pain RESPIRATORY: Denies dyspnea, cough, wheezing, hemoptysis, sputum. CARDIOVASCULAR: Denies chest pain, palpitations, orthopnea, edema GASTROINTESTINAL: Denies nausea, vomiting, abdominal pain, diarrhea, constipation, melena. : Denies dysuria, frequency, incontinence, hematuria, urinary retention, flank pain. MUSCULOSKELETAL: Denies weakness, joint pain, or bony pain SKIN: No rash, no erythema, no pruritus NEUROLOGIC: See HPI PSYCHIATRIC: No concerning psychosocial issues. 12 point review of systems is negative except for those stated above and HPI Patient History Medical History (Updated 01/06/21 @ 21:31 by Marisol Mckeon DO) Allergic rhinitis Anxiety Asthma Bronchitis Depression Excessive daytime sleepiness GERD (gastroesophageal reflux disease) Hypertension Morbid obesity with body mass index (BMI) of 40.0 to 49.9 Primary insomnia Recurrent sinus infections Restless legs syndrome (RLS) Social History (Updated 03/01/18 @ 18:28 by MASSIMO Arauz) marital status: details: tania Hay, lives in [place] household members: spouse lives independently: Yes caregiver/support person: No housing: house pets and animals: Yes Smoking Status: Former smoker Smoking Status: Former smoker Substance Use Type: does not use Exam Initial Vital Signs Initial Vital Signs: Vital Signs Temperature 98.0 F 01/06/21 17:47 Pulse Rate 93 H 01/06/21 17:47 Respiratory Rate 18 01/06/21 17:47 Blood Pressure 160/90 H 01/06/21 17:47 Pulse Oximetry 96 01/06/21 17:47 GENERAL: Alert 75-year-old female BMI 41 is in no acute distress. HEENT: Head atraumatic,EOMI, pupils reactive, face symmetric, moist mucous membranes CARDIOVASCULAR: Regular rate and rhythm without murmurs, rubs or gallops. RESPIRATORY: Breath sounds equal bilaterally, no wheezes rales or rhonchi. ABDOMEN: Soft, nontender. Normoactive bowel sounds all 4 quadrants. No guarding or rebound. BACK: Incision sites noted mild erythema on left side EXTREMITIES: Normal range of motion, no clubbing or edema. Neurovascularly intact NEUROLOGICAL: Alert and oriented x4.Normal gait and speech. Cranial nerves II through XII grossly intact. Good [id number], good [id number]-[id number], strength equal bilaterally, no dysarthria or aphasia, sensation in tact to soft touch bilaterally, no visual changes, no facial droop] SKIN: mild erythem on left incision site on back, no other rash Scores NIH Stroke Scale Level of Conciousness: Alert, keenly responsive Ask month/age: Answers both questions correctly. Open/close eyes, close hand: Performs both tasks correctly Best gaze horizontal: Normal Visual moon: No visual loss Facial palsy: Normal symetrical movement Left arm drift: No drift for full 10 sec Right arm drift: No drift for full 10 sec Left leg drift: No drift for full 5 sec Right leg drift: No drift for full 5 sec Limb ataxia: Absent Sensory on face/arms/legs: Normal, no sensory loss Best language: No aphasia, normal Dysarthria: Normal Extinction or inattention: No abnormality Total NIH Stroke scale score: 0 Course Orders Ordered: ED Orders 01/06/21 18:43 CT head/brain wo con Stat CT lumbar spine w con Stat 01/06/21 18:55 CBC Auto Diff [Complete Blood Count AUTO DIFF] Stat CMP [Comprehensive Metabolic Panel] Stat Procalcitonin Stat 01/06/21 21:10 UA Complete [Urinalysis and Microscopic] Stat Discontinued Medications Hydromorphone HCl (Hydromorphone 0.5 Mg Inj) 0.5 mg IV NOW ONE Stop: 01/06/21 18:51 Last Admin: 01/06/21 19:06 Dose: 0.5 mg Documented by: KIRAN Vital Signs Vital signs: Vital Signs - 8 hr 01/06/21 19:49 01/06/21 20:33 01/06/21 21:40 Pulse Rate 88 79 81 Respiratory Rate 19 17 Blood Pressure 135/60 117/59 L 131/58 L Pulse Oximetry 100 95 97 MDM - Back Pain/Injury Lab Data Result diagrams: 01/06/21 18:55 01/06/21 18:55 Labs: Lab Results 01/06/21 01/06/21 01/06/21 Range/Units 18:55 18:55 18:55 WBC 7.0 (4.5-11.0) X10^3/uL RBC 4.04 (4.0-5.2) X10^6/uL Hgb 12.3 (12.0-16.0) g/dL Hct 37.0 (36-46) % MCV 91.5 (80-100) fL MCH 30.4 (26-34) PG MCHC 33.2 (30-36) % RDW 13.9 (11.6-14.8) % Plt Count 252 (150-400) X10^3/uL Neut % (Auto) 59.7 (50-75) % Lymph % (Auto) 29.7 (25-40) % Gaston % (Auto) 7.0 (3-14) % Eos % (Auto) 2.6 (2-4) % Baso % (Auto) 1.0 (0-2) % Neut # (Auto) 4200 (0687-8080) /uL Lymph # (Auto) 2100 (1711-7495) /uL Gaston # (Auto) 500 (0-900) /uL Eos # (Auto) 200 (0-450) /uL Baso # (Auto) 100 (0-100) /uL Sodium 138 (137-145) mmol/L Potassium 4.2 (3.4-5.1) mmol/L Chloride 102 (98-107) mmol/L Carbon Dioxide 30 (22-32) mmol/L BUN 12 (7-17) mg/dL Creatinine 1.03 (0.52-1.04) mg/dL Estimated GFR 52.0 L (>60) mL/min BUN/Creatinine Ratio 11.7 (6-22) Glucose 103 (80-110) mg/dL Calcium 8.9 (8.4-10.2) mg/dL Total Bilirubin 0.3 (0.2-1.3) mg/dL AST 32 (14-36) IU/L ALT 17 (<35) IU/L Alkaline Phosphatase 192 H (38-126) U/L Total Protein 6.9 (6.3-8.2) g/dL Albumin 3.9 (3.5-5.0) g/dL Globulin 3.0 (1.7-4.1) g/dL Albumin/Globulin Ratio 1.3 (1.0-2.8) Procalcitonin 0.11 (<0.5) ng/mL Urine Color Urine Appearance Urine pH (4.5-8.0) Ur Specific Magazine (1.000-1.035) Urine Protein (Negative) Urine Glucose (UA) (Negative) g/dL Urine Ketones (NEGATIVE) Urine Occult Blood (Negative) Urine Nitrate (Negative) Urine Bilirubin (NEGATIVE) Urine Urobilinogen (0.2) E.U./dL Ur Leukocyte Esterase (NEGATIVE) Urine RBC (0-5/HPF) Urine WBC (0-5/HPF) Ur Squamous Epith Cells (0-5/HPF) Urine Bacteria (None) Ur Culture Indicated? 01/06/21 Range/Units 21:10 WBC (4.5-11.0) X10^3/uL RBC (4.0-5.2) X10^6/uL Hgb (12.0-16.0) g/dL Hct (36-46) % MCV (80-100) fL MCH (26-34) PG MCHC (30-36) % RDW (11.6-14.8) % Plt Count (150-400) X10^3/uL Neut % (Auto) (50-75) % Lymph % (Auto) (25-40) % Gaston % (Auto) (3-14) % Eos % (Auto) (2-4) % Baso % (Auto) (0-2) % Neut # (Auto) (1070-5257) /uL Lymph # (Auto) (9198-4575) /uL Gaston # (Auto) (0-900) /uL Eos # (Auto) (0-450) /uL Baso # (Auto) (0-100) /uL Sodium (137-145) mmol/L Potassium (3.4-5.1) mmol/L Chloride (98-107) mmol/L Carbon Dioxide (22-32) mmol/L BUN (7-17) mg/dL Creatinine (0.52-1.04) mg/dL Estimated GFR (>60) mL/min BUN/Creatinine Ratio (6-22) Glucose (80-110) mg/dL Calcium (8.4-10.2) mg/dL Total Bilirubin (0.2-1.3) mg/dL AST (14-36) IU/L ALT (<35) IU/L Alkaline Phosphatase (38-126) U/L Total Protein (6.3-8.2) g/dL Albumin (3.5-5.0) g/dL Globulin (1.7-4.1) g/dL Albumin/Globulin Ratio (1.0-2.8) Procalcitonin (<0.5) ng/mL Urine Color Yellow Urine Appearance Clear Urine pH 8.0 (4.5-8.0) Ur Specific Magazine 1.010 (1.000-1.035) Urine Protein Negative (Negative) Urine Glucose (UA) Negative (Negative) g/dL Urine Ketones Negative (NEGATIVE) Urine Occult Blood Negative (Negative) Urine Nitrate Negative (Negative) Urine Bilirubin Negative (NEGATIVE) Urine Urobilinogen 0.2 (0.2) E.U./dL Ur Leukocyte Esterase Trace H (NEGATIVE) Urine RBC 0-1/hpf (0-5/HPF) Urine WBC 0-1/hpf (0-5/HPF) Ur Squamous Epith Cells 5-10 /hpf H (0-5/HPF) Urine Bacteria Few (2-10) H (None) Ur Culture Indicated? Cult not indicated Imaging Data CT scan - head: Radiologist's Impression: PROCEDURE:? CT HEAD/BRAIN WO CON ? INDICATIONS:? falling ? TECHNIQUE:? Noncontrast 4.5 mm thick angled axial sections acquired from the foramen magnum to the vertex, with coronal and sagittal reformats.? For radiation dose reduction, the following was used:? automated exposure control, adjustment of mA and/or kV according to patient size.? ? COMPARISON:? [facility], CT, CT HEAD/BRAIN WO CON, 05/27/2020, 12:42. ? FINDINGS:? Image quality:? Excellent.? ? CSF spaces:? Basal cisterns are patent.? No extra-axial fluid collections.? The ventricles are symmetric in size and shape.? ? Brain:? No intracranial bleeds or masses.? There is cerebral volume loss for age, with resultant ventricular and sulcal prominence.? There are periventricular and deep white matter chronic small vessel ischemic changes.? There is intracranial internal carotid artery atherosclerosis.? ? Skull and face:? Calvarium and visualized facial bones appear intact, without suspicious lesions.? ? Sinuses:? Visualized sinuses and mastoids are clear.? ? IMPRESSION:? 1. No acute intracranial abnormality. 2. Microvascular ischemic disease and age related cerebral volume loss.? ? Dictated by: Unruly Goel M.D. on 01/06/2021 at 20:06 ? ? CT Lumbar: Radiologist's Impression: PROCEDURE:? CT LUMBAR SPINE W CON ? INDICATIONS:? post surgical now falling ? TECHNIQUE:? After the administration of intravenous Isovue contrast, 3 mm thick sections acquired through the levels of interest.? Sagittal and coronal reformats were then constructed.? For radiation dose reduction, the following was used:? automated exposure control.? ? COMPARISON:? [facility], , MR LUMBAR SPINE WO CON, 07/30/2020, 9:30. ? FINDINGS:? Image quality:? Excellent.? ? PARASPINAL AREA: There is no paraspinal soft tissue mass or fluid collection. The visualized kidneys and adrenal glands are grossly normal. The aorta has a normal caliber. BONES:? Postoperative changes discectomy and pedicular screw and elias fixation at L3-4. ? LUMBAR DISC LEVELS: L1-L2:? Disc height loss and endplate degenerative changes with intradiscal gas, disc osteophytes , and facet arthrosis cause severe bilateral foraminal stenosis.? The central canal has mild stenosis.? L2-L3:? Disc height loss and endplate degenerative changes with intradiscal gas, disc osteophytes, and facet arthrosis cause moderate right severe left foraminal stenosis.? The central canal has mild stenosis. L3-L4:? Postoperative changes of discectomy and interbody fusion.? Disc osteophytes and facet arthrosis cause right and mild left foraminal stenosis.? The central canal is patent.? The central canal demonstrates apparent moderate stenosis but is not well evaluated by CT.? L4-L5: There is no significant disc bulge. The foramina and central canal are patent by CT. L5-S1: There is no significant disc bulge. The foramina and central canal are patent by CT. ? IMPRESSION:? 1. Postoperative changes at L3-4 with no abscess or other acute postoperative complication. 2. Multilevel apparent foraminal and central canal stenosis as above.? However note that the discs and central canal are not well evaluated with CT.? ? Dictated by: Unruly Goel M.D. on 01/06/2021 at 20:26? [facility] Narrative Medical decision making narrative: Patient overall appears well mild erythema at incision site but no significant swelling or drainage. No fever or leukocytosis. She is having lower extremity weakness head CT blood work are overall reassuring CT of lumbar spine does not show abscess. She does need an MRI however MRI unavailable a time. At this time I do not see need to transfer patient for MRI she is ambulatory in the ED, no focal deficits, no evidence of stroke. Mild elevation of procalcitonin 0.4 will start her on Keflex and think she has a mild cellulitis on the left incision site. No gross drainage. Discharge Plan Departure Patient Disposition: Home Clinical Impression: Cellulitis, Weakness Instructions: Cellulitis Activity Restrictions/Additional Instructions: *You have been diagnosed with weakness and cellulitis *What to do: You have a very mild infection on her back. You will also need an outpatient MRI, please call your orthopedic for follow-up *Continue to take medications as directed Keflex 500 mg twice a day for 7 days--> SENT TO [facility] *Follow up with your primary care provider in 2-3 days *Return to ER if you should have loss of urine or stool increasing leg weakness, fever or any new, worsening or concerning symptoms Prescriptions: New cephalexin 500 mg capsule 500 mg PO BID 7 Days Qty: 14 0RF No Action diltiazem HCl 240 mg capsule,extended release 24 hr 240 mg PO DAILY 0RF omeprazole magnesium [Prilosec] 10 mg susp,delayed release for recon 10 mg PO DAILY 0RF cyanocobalamin (vitamin B-12) [Vitamin B-12] 500 MCG tablet 1,000 mcg PO QDAY Qty: 0 0RF VITAMIN D (Vitamin D3) 1,000 unit PO QDAY Qty: 0 0RF albuterol sulfate [Proventil HFA] 90 MCG/PUFF HFA aerosol inhaler 1 puff INH PRN Qty: 8.5 0RF (DME) Respironics Dreamstation Auto BIPAP Qty: 1 0RF Dose Instruction: As directed Label Comments: Pressure: IPAP 19 EPAP 11 DME: [facility] Instructions: As directed carvedilol 6.25 mg tablet 6.25 mg PO BID 0RF venlafaxine 150 mg capsule,extended release 24hr 150 mg PO DAILY 0RF aspirin 81 mg tablet,delayed release (DR/EC) 81 mg PO DAILY 0RF levothyroxine 125 mcg capsule 125 mcg PO QTUTH 0RF Referrals: Katherine Gusman PA-C [Primary Care Provider] -
[2021-01-06 19:03] LABS: Add Manual Diff / Slide Review NO; Basophils Absolute Auto 100 /uL (0-100); Eosinophils Absolute Auto 200 /uL (0-450); Eosinophils Percent Auto 2.6 % (2-4); Hemoglobin 12.3 g/dL (12.0-16.0); Lymphocytes Absolute Auto 2100 /uL (1100-4500); Lymphocytes Percent Auto 29.7 % (25-40); Mean Corpuscular HGB Conc 33.2 % (30-36); Mean Corpuscular Hemoglobin 30.4 PG (26-34); Mean Corpuscular Volume 91.5 fL (80-100); Monocytes Absolute Auto 500 /uL (0-900); Neutrophils Absolute Auto 4200 /uL (1500-7000); Neutrophils Percent Auto 59.7 % (50-75); Platelet Count 252 X10^3/uL (150-400); Red Blood Cell Count 4.04 X10^6/uL (4.0-5.2); Red Cell Distribution Width 13.9 % (11.6-14.8)
[2021-01-06] MEDS: HYDROMORPHONE 0.5 MG INJ IV (19:06)
[2021-01-06 19:13] LABS: Alanine Aminotransferase 17 IU/L (<35); Albumin 3.9 g/dL (3.5-5.0); Albumin Globulin Ratio 1.3 (1.0-2.8); Alkaline Phosphatase 192 U/L (38-126); Aspartate Aminotransferase 32 IU/L (14-36); BUN Creatinine Ratio 11.7 (6-22); Bilirubin Total 0.3 mg/dL (0.2-1.3); Blood Urea Nitrogen 12 mg/dL (7-17); Calcium 8.9 mg/dL (8.4-10.2); Carbon Dioxide 30 mmol/L (22-32); Chloride 102 mmol/L (98-107); Glucose 103 mg/dL (80-110); HEMOLYSIS < 15 (0-50); Potassium 4.2 mmol/L (3.4-5.1); Sodium 138 mmol/L (137-145); Total Protein 6.9 g/dL (6.3-8.2)
[2021-01-06 19:34] LABS: Procalcitonin 0.11 ng/mL (<0.5)
[2021-01-06 19:49] VITALS: BP 135/60; PULSE 88; O2SAT 100
[2021-01-06 20:33] VITALS: BP 117/59; PULSE 79; RESP 19; O2SAT 95
[2021-01-06 21:22] LABS: Appearance Urine UA CLEAR; Bilirubin Urine UA NEGATIVE (NEGATIVE); Color Urine UA YELLOW; Glucose Urine UA NEGATIVE (Negative); Ketones Urine UA NEGATIVE (NEGATIVE); Leukocyte Esterase Urine UA TRACE (NEGATIVE); Nitrite Urine UA NEGATIVE (Negative); Occult Blood Urine UA NEGATIVE (Negative); Protein Urine UA NEGATIVE (Negative); Urobilinogen Urine UA 0.2 E.U./dL (0.2)
[2021-01-06 21:25] LABS: Bacteria Urine Few (2-10); Culture Indicated Urine Cult Not Indicated; RBC Urine 0-1/HPF (0-5/HPF); Squamous Epithelial Cell Urine 5-10 /HPF (0-5/HPF); WBC Urine 0-1/HPF (0-5/HPF)
[2021-01-06 21:40] VITALS: BP 131/58; PULSE 81; RESP 17; O2SAT 97
== END 2021-01-06 21:48 | disposition home or self-care (01) ==
PROVIDERS: Emergency Provider Emergency Medicine; PCP Physician Assistant
DX: L03.312 Cellulitis of back [any part except buttock and flank] (principal); R53.1 Weakness; Z98.890 Other specified postprocedural states; Z91.81 History of falling
CPT/HCPCS: 36415; 70450; 72132; 80053; 81001; 84145; 85025; 96374; 99284; J1170; Q9967

== ENCOUNTER 2021-01-11 06:32 | Emergency (ER) | payer MEDICARE, OTHER, SELFPAY ==
[2021-01-11 06:53] VITALS: BP 143/62; PULSE 88; RESP 17; O2SAT 94; BMI 41.5
--- NOTE | 2021-01-11 07:19 | DI.US.S_ITS ---
PROCEDURE: US PERIPH VENOUS LOW EXTREM RT INDICATIONS: PAIN, EDEMA TECHNIQUE: Real-time imaging, as well as color and pulse Doppler interrogation, were performed of the lower extremity deep veins from the inguinal ligament to the popliteal fossa. COMPARISON: None. FINDINGS: The common femoral, femoral and popliteal veins are normally compressible, and free of intraluminal thrombus. Color and pulse Doppler demonstrate normal phasic intraluminal flow. There is normal augmentation response to distal compression maneuver. IMPRESSION: Negative for deep venous thrombosis of the right lower extremity. Dictated by: Tone Collado M.D. on 01/11/2021 at 8:05 Approved by: Tone Collado M.D. on 01/11/2021 at 8:06
--- NOTE | 2021-01-11 07:19 | ED.EXTPRO ---
HPI - Extremity Problem General Chief complaint: Extremity Problem,Nontraumatic Stated complaint: rt knee pain x1 day Time Seen by Provider: 01/11/21 07:11 Source: patient Mode of arrival: Ambulatory Limitations: no limitations History of Present Illness HPI Narrative: Patient complains of anterior and posterior right knee pain and swelling for the past 1 day. Patient did have lumbar fusion in the past week. Has been doing well with that. She does have Orthopedics that does fall or here, Dr Hendrix for her chronic right knee pain. Please see MRI of the knee this past summer. Orthopedist according to the patient states at this time no surgery. Has been doing injections to the knee with steroids. Has not had a in 3 months. She has plans to see him for injection. No new injury or illness. [address] [address] Magnetic Resonance Report Signed Patient: Mraie Leung MR#: [id number] : 1945 Acct:[id number] Age/Sex: 75 / F Date of Service: 07/20/20 Loc: MRI Accession Number: [id number] ?? Procedure: MR knee RT wo con Ordering Provider: Katherine Gusman P.A-C PROCEDURE:? MR KNEE RT WO CON ? INDICATIONS:? Pain in right knee ? TECHNIQUE:? Noncontrast sagittal PD fast spin echo and T2 fast spin echo with fat saturation, sagittal 3-D FLASH with fat saturation; coronal T1 spin echo and PD fast spin echo with fat saturation, and axial PD fast spin echo with fat saturation through the knee.? ? COMPARISON:? [facility], , KNEE WITHOUT CONTRAST, 07/12/2016, 10:49. ? FINDINGS:? Image quality:? Excellent.? ? Menisci:? The medial meniscus is grossly intact.? There is ill-defined amorphous high signal intensity within the lateral meniscal body demonstrating superior and inferior articular surface extension, indicating degenerative tearing. ? Cruciate ligaments:? The anterior and posterior cruciate ligaments appear intact.? ? Medial structures:? The medial collateral ligament appears intact.? Visualized portions of the pes anserinus tendons appear normal.? No abnormal bursal fluid.? ? Lateral structures:? The lateral collateral ligament demonstrates low-grade T2 signal elevation at the femoral origin.? The long and short heads of the biceps femoris tendon appear intact.? The popliteus tendon appears normal.? Iliotibial band appears normal.? ? Anterior structures:? The quadriceps and patellar tendons appear intact.? Moderate T2 signal elevation within the quadriceps and patellar tendons at the patellar insertion sites.? Patellar alignment is normal.? No femoral trochlear dysplasia or ventral trochlear prominence.? No edema in the infrapatellar fat pad.? ? Bones and cartilage:? No bone marrow contusions or fractures.? There is mild subchondral degenerative marrow edema within the lateral femoral trochlea, the patellar apex and lateral patellar facet.? Moderate tricompartmental periarticular osteophyte formation is present.? Mild articular cartilage loss diffusely overlies the weight-bearing aspects of the medial femoral condyle and medial tibial plateau, as well as the lateral femoral condyle and lateral tibial plateau.? Superimposed high-grade articular cartilage loss overlies the mid/posterior weight-bearing aspect of the lateral femoral condyle.? Severe articular cartilage loss overlies the lateral patellar facet and lateral femoral trochlea. ? Joint space:? There is a moderate knee joint effusion and a moderate Burrows's cyst.? Normal appearing synovial plicae are incidentally noted.? ? IMPRESSION:? 1. Tricompartmental osteoarthritis with associated articular cartilage loss, worst in the patellofemoral and lateral compartments. 2. Quadriceps and patellar tendinopathy. 3. Knee joint effusion and Burrows's cyst. 4. Low-grade partial thickness lateral collateral ligament tear.? ? ? Dictated by: Vandana Cerda M.D. on 07/20/2020 at 16:56 ? ? Approved by: Vnadana Cerda M.D. on 07/20/2020 at 16:58 ? Related Data Home Medications Medication Instructions Recorded Confirmed VITAMIN D (Vitamin D3) 1,000 unit PO QDAY #0 09/26/12 01/10/21 albuterol sulfate 90 mcg/actuation 1 puff INH PRN #8.5 gm 09/26/12 01/10/21 aerosol inhaler (Proventil HFA) cyanocobalamin (vitamin B-12) 500 1,000 mcg PO QDAY #0 09/26/12 01/10/21 mcg tablet (Vitamin B-12) diltiazem HCl 240 mg capsule,24 240 mg PO DAILY 10/14/17 01/10/21 hr,extended release aspirin 81 mg tablet,delayed 81 mg PO DAILY 08/30/18 01/10/21 release carvedilol 6.25 mg tablet 6.25 mg PO BID 08/30/18 01/10/21 venlafaxine 150 mg 150 mg PO DAILY 08/30/18 01/10/21 capsule,extended release 24 hr Respironics Dreamstation Auto BIPAP #1 ea 09/03/18 01/10/21 levothyroxine 125 mcg tablet 125 mcg PO DAILY 01/10/21 01/10/21 (Synthroid) omeprazole magnesium 10 mg oral 40 mg PO DAILY ea 01/10/21 01/10/21 suspension,delayed release (Prilosec) Allergies Allergy/AdvReac Type Severity Reaction Status Date / Time lisinopril [LISINOPRIL] Allergy Mild ANGIOEDEMA Verified 01/10/21 11:16 Penicillins [PENICILLINS] Allergy Mild RASH Verified 01/10/21 11:16 doxycycline AdvReac GI upset Verified 01/10/21 11:16 Review of Systems Review of Systems Narrative: GENERAL: Denies chills, fatigue, malaise, fever, sweats. HEENT: Denies sinus pain, ear pain, sore throat RESPIRATORY: Denies dyspnea, cough CARDIOVASCULAR: Denies chest pain, palpitations GASTROINTESTINAL: Denies nausea, vomiting, abdominal pain : Denies dysuria, frequency, hematuria MUSCULOSKELETAL: Positive formuscle or bony pain SKIN: Denies rash, skin lesions NEUROLOGIC: Denies weakness, numbness ROS Unobtainable: All systems reviewed & are unremarkable except as noted in HPI and below Patient History Medical History (Updated 01/11/21 @ 08:54 by Rene Gaytan MD) Allergic rhinitis Anxiety Asthma Bronchitis Depression Excessive daytime sleepiness GERD (gastroesophageal reflux disease) Hypertension Morbid obesity with body mass index (BMI) of 40.0 to 49.9 Primary insomnia Recurrent sinus infections Restless legs syndrome (RLS) Social History marital status: details: tania Hay, lives in [place] household members: spouse lives independently: Yes caregiver/support person: No housing: house pets and animals: Yes Smoking Status: Former smoker Smoking Status: Former smoker alcohol intake frequency: 0-2 drinks per day Substance Use Type: does not use Exam Narrative Exam Narrative: GENERAL: in no distress, not toxic not dyspneic HEAD: Normocephalic. EXTREMITIES: No gross deformities. Pants and shoes and socks removed. Right lower extremity grossly symmetric to the left. Nontender hip and ankle. Foot is warm soft and pink with strong pedal pulse lytes active within toes. Able to bend to 90?. There is pain but no laxity of the right knee with anterior posterior medial lateral and rotational stress of the right leg. No palpable cords on the calves. Nontender calf. NEURO: AOx4. SKIN: Warm and dry PSYCH: Not anxious, is cooperative Initial Vital Signs Initial Vital Signs: Vital Signs Pulse Rate 88 01/11/21 06:53 Respiratory Rate 17 01/11/21 06:53 Blood Pressure 143/62 H 01/11/21 06:53 Pulse Oximetry 94 01/11/21 06:53 Course Course Course Narrative: No new issues during course of stay Orders Ordered: ED Orders 01/11/21 07:19 US periph venous low extrem rt Stat Discontinued Medications Hydromorphone HCl (Hydromorphone 1 Mg Inj) 1 mg IM NOW ONE Stop: 01/11/21 07:19 Last Admin: 01/11/21 08:39 Dose: 1 mg Documented by: CHERIE Ondansetron HCl (Ondansetron 4 Mg Odt) 4 mg SL NOW ONE Stop: 01/11/21 07:19 Last Admin: 01/11/21 08:39 Dose: 4 mg Documented by: CHERIE Reevaluation(s) Reevaluation #1: Pain is improved. Results reviewed patient. Agrees for discharge as she has appointment with a provider later today. She desires discharge home. Time: 08:52 Vital Signs Vital signs: Vital Signs - 8 hr 01/11/21 08:58 Pulse Rate 71 Respiratory Rate 18 Blood Pressure 143/62 H Pulse Oximetry 98 MDM - Extremity (Nontraumatic) Differential Diagnosis Differential diagnosis: Likely superficial thrombophlebitis, deep vein thrombosis of lower extremity and other (Osteoarthritis/chronic knee pain. Fracture.) Imaging Data US - DVT: Radiologist's Impression: [address] [address] Ultrasound Report Signed Patient: Marie Leung MR#: [id number] : 1945 Acct:[id number] Age/Sex: 75 / F Date of Service: 01/11/21 Loc: ED Accession Number: [id number] ?? Procedure: US periph venous low extrem rt Ordering Provider: Rene Gaytan MD PROCEDURE:? US PERIPH VENOUS LOW EXTREM RT ? INDICATIONS:? PAIN, EDEMA ? TECHNIQUE:? Real-time imaging, as well as color and pulse Doppler interrogation, were performed of the lower extremity deep veins from the inguinal ligament to the popliteal fossa.? ? COMPARISON:? None. ? FINDINGS:? The common femoral, femoral and popliteal veins are normally compressible, and free of intraluminal thrombus.? Color and pulse Doppler demonstrate normal phasic intraluminal flow.? There is normal augmentation response to distal compression maneuver. ? ? IMPRESSION:? Negative for deep venous thrombosis of the right lower extremity. ? ? ? Dictated by: Tone Collado M.D. on 01/11/2021 at 8:05 ? ? Approved by: Tone Collado M.D. on 01/11/2021 at 8:06 ? MDM Narrative Medical decision making narrative: Appropriate for discharge home. Patient has chronic knee pain. Not new. No no injuries. No laboratory studies indicated. Exam and imaging reassuring. Pain is controlled. Has assigned orthopedic provider already. Discharge Plan Departure Patient Disposition: Home Clinical Impression: Chronic pain of right knee Activity Restrictions/Additional Instructions: No driving or operating machinery today or when taking the prescribed pain medication. Continue to use your walker. See orthopedic surgeon for your knee, call today to make an appointment. Return if worsening questions or concerns Prescriptions: No Action diltiazem HCl 240 mg capsule,extended release 24 hr 240 mg PO DAILY 0RF Prilosec 10 mg susp,delayed release for recon 40 mg PO DAILY 0RF cyanocobalamin (vitamin B-12) [Vitamin B-12] 500 MCG tablet 1,000 mcg PO QDAY Qty: 0 0RF VITAMIN D (Vitamin D3) 1,000 unit PO QDAY Qty: 0 0RF albuterol sulfate [Proventil HFA] 90 MCG/PUFF HFA aerosol inhaler 1 puff INH PRN Qty: 8.5 0RF (DME) Respironics Dreamstation Auto BIPAP Qty: 1 0RF Dose Instruction: As directed Label Comments: Pressure: IPAP 19 EPAP 11 DME: [facility] Instructions: As directed carvedilol 6.25 mg tablet 6.25 mg PO BID 0RF venlafaxine 150 mg capsule,extended release 24hr 150 mg PO DAILY 0RF aspirin 81 mg tablet,delayed release (DR/EC) 81 mg PO DAILY 0RF levothyroxine [Synthroid] 125 mcg tablet 125 mcg PO DAILY 0RF Referrals: Katherine Gusman PA-C [Primary Care Provider] - Alexandre Hendrix MD [Physician] -
[2021-01-11] MEDS: ONDANSETRON 4 MG ODT SL (08:39)
[2021-01-11] MEDS: HYDROMORPHONE 1 MG INJ IM (08:39)
[2021-01-11 08:58] VITALS: BP 143/62; PULSE 71; RESP 18; O2SAT 98
== END 2021-01-11 09:00 | disposition home or self-care (01) ==
PROVIDERS: Emergency Provider Emergency Medicine; PCP Physician Assistant
DX: G89.29 Other chronic pain (principal); M25.561 Pain in right knee
CPT/HCPCS: 93971; 96372; 99283; 99284; J1170

== ENCOUNTER 2021-03-06 15:19 | Emergency (ER) | payer MEDICARE, OTHER, SELFPAY ==
[2021-03-06 15:26] VITALS: BP 130/64; PULSE 77; RESP 22; TEMP 36.6; O2SAT 99
--- NOTE | 2021-03-06 15:42 | ED_ITS ---
HPI - Chest Pain General Chief Complaint: Chest Pain Stated Complaint: Left chest/underarm intermitt. pain x2days Time Seen by Provider: 03/06/21 15:28 Source: patient Mode of arrival: Ambulatory History of Present Illness HPI narrative: 76-year-old woman with a history of recent lumbar fusion surgery, hypertension, hypothyroidism, and reflux have been working with physical therapy trying to strengthen her core after her recent spinal surgery and began having pain in her left shoulder/axilla/scapula area. She was seen in urgent care yesterday and given a shot of Toradol which was not very effective. She has tried 80 Tylenol and cyclobenzaprine and has not found that it is affective. She has not been having fevers, cough, chills, chest pain or shortness of breath. She notes that the pain is worse when she moves her breast to her arm. No vomiting or diarrhea and she feels that she is continuing to make progress in healing after her spinal surgery. Related Data Home Medications Medication Instructions Recorded Confirmed VITAMIN D (Vitamin D3) 1,000 unit PO QDAY #0 09/26/12 03/05/21 albuterol sulfate 90 mcg/actuation 1 puff INH PRN #8.5 gm 09/26/12 03/05/21 aerosol inhaler (Proventil HFA) cyanocobalamin (vitamin B-12) 500 1,000 mcg PO QDAY #0 09/26/12 03/05/21 mcg tablet (Vitamin B-12) diltiazem HCl 240 mg capsule,24 240 mg PO DAILY 10/14/17 03/05/21 hr,extended release aspirin 81 mg tablet,delayed 81 mg PO DAILY 08/30/18 03/05/21 release carvedilol 6.25 mg tablet 6.25 mg PO BID 08/30/18 03/05/21 venlafaxine 150 mg 150 mg PO DAILY 08/30/18 03/05/21 capsule,extended release 24 hr Respironics Dreamstation Auto BIPAP #1 ea 09/03/18 03/05/21 levothyroxine 125 mcg tablet 125 mcg PO DAILY 01/10/21 03/05/21 (Synthroid) omeprazole magnesium 10 mg oral 40 mg PO DAILY ea 01/10/21 03/05/21 suspension,delayed release (Prilosec) Previous Rx's Medication Instructions Recorded methocarbamol 500 mg tablet 500 mg PO Q8H PRN #20 tab 03/05/21 valacyclovir 1 gram tablet 1,000 mg PO TID #21 tab 03/06/21 Allergies Allergy/AdvReac Type Severity Reaction Status Date / Time lisinopril [LISINOPRIL] Allergy Mild ANGIOEDEMA Verified 03/05/21 17:17 Penicillins [PENICILLINS] Allergy Mild RASH Verified 03/05/21 17:17 doxycycline AdvReac GI upset Verified 03/05/21 17:17 Review of Systems Review of Systems Narrative: Remainder of complete review of systems is otherwise unremarkable except for that included in the HPI. Patient History Medical History (Updated 03/06/21 @ 15:51 by Kell Allison MD) Allergic rhinitis Anxiety Asthma Bronchitis Depression Excessive daytime sleepiness GERD (gastroesophageal reflux disease) Hypertension Morbid obesity with body mass index (BMI) of 40.0 to 49.9 Primary insomnia Recurrent sinus infections Restless legs syndrome (RLS) Social History marital status: details: tania Hay, lives in [place] household members: spouse lives independently: Yes caregiver/support person: No housing: house pets and animals: Yes Smoking Status: Former smoker Smoking Status: Former smoker alcohol intake frequency: 0-2 drinks per day Substance Use Type: does not use Exam Initial Vital Signs Initial Vital Signs: Vital Signs Temperature 97.8 F 03/06/21 15:26 Pulse Rate 77 03/06/21 15:26 Respiratory Rate 22 03/06/21 15:26 Blood Pressure 130/64 03/06/21 15:26 Pulse Oximetry 99 03/06/21 15:26 General: Alert appropriate in no acute distress Respiratory: Able to speak in full sentences, no obvious respiratory distress Left shoulder upper extremity: No pain or tenderness to the shoulder joint with no tenderness with full range of motion at the joint. Neurovascularly intact. Skin: There is a small cluster of vesicles on an erythematous base noted mid axillary line at the T4 level. On closer inspection it does look like there is more vesicles about to erupt in a linear distribution consistent with shingles. Neurologic: Grossly intact no obvious asymmetries or abnormalities Psych: appropriate insight and affect, cooperative Course Orders Ordered: ED Orders 03/06/21 15:28 XR chest 1V Stat Complete Blood Count AUTO DIFF Stat Comprehensive Metabolic Panel Stat Lipase Stat Magnesium Stat Troponin & CK Cardiac Panel Stat EKG-12 Lead Stat Vital Signs Vital signs: Vital Signs - 8 hr 03/06/21 15:26 Temperature 97.8 F Pulse Rate 77 Respiratory Rate 22 Blood Pressure 130/64 Pulse Oximetry 99 MDM - Chest Pain ECG Data Interpretation: Sinus rhythm at a rate of 91 No acute ischemic changes Normal intervals, normal axis MDM Narrative Medical decision making narrative: 76-year-old woman with 2-3 days of left-sided chest and shoulder pain. She is assumed was musculoskeletal. She was seen at urgent care yesterday and did not have any relief with Toradol injection. On exam today she is noted to have of the vesicular eruption in the axilla with erythema developing linearly. When the tracing dermatome T4 around her body in asking if this is her pain she states that is exactly where it is. I suspect that she is having a prodromal syndrome over the last couple of days and today is now beginning to develop v esicular lesions with her zoster outbreak. She is aware that shingles is the underlying cause of this. EKG is unremarkable there is no evidence of other infection and this is not a cardiovascular chest pain. Will start her on antiviral medications and instructor that it is safe to use a single Tylenol, aspirin, oxycodone (all medication she has at home after her recent spine surgery) every 6 hours for severe pain as needed. Did let her know that if symptoms worsen or if it looks like the zoster outbreak is becoming superinfected with bacteria and developing into a cellulitis that she would need to return to the emergency department. Questions are answered and she is safe for home discharge Discharge Plan Departure Patient Disposition: Home Clinical Impression: Shingles Qualifiers: Herpes zoster complications: without complications Qualified Code(s): B02.9 - Zoster without complications Instructions: DI for Shingles Activity Restrictions/Additional Instructions: Thank you for coming in today I believe that you are having a shingles outbreak. It is common to have pain along that nerve just before the rash breaks out. You are beginning to develop a classic looking lesion just under your arm pit that is spreading both forward and back. Please start Valacyclovir 1 g 3 times a day to help suppress the virus and hopefully prevent significant worsening and nerve damage complications. Prescription has been electronically transmitted to [facility] For pain control, it is okay to use a single aspirin, Tylenol, oxycodone(the medicine she said you had available after your recent surgery) every 6 hours to help with the pain. It is not uncommon to sometimes feel like you are developing a virus(you, in fact, are) with low-grade fevers and body aches. If you feel that you are getting worse, please follow-up with your primary care provider or feel free to return to the emergency department I hope you heal quickly Prescriptions: New valacyclovir 1 gram tablet 1,000 mg PO TID Qty: 21 0RF No Action diltiazem HCl 240 mg capsule,extended release 24 hr 240 mg PO DAILY 0RF Prilosec 10 mg susp,delayed release for recon 40 mg PO DAILY 0RF methocarbamol 500 mg tablet 500 mg PO Q8H PRN (Reason: muscle spasm) Qty: 20 0RF cyanocobalamin (vitamin B-12) [Vitamin B-12] 500 MCG tablet 1,000 mcg PO QDAY Qty: 0 0RF VITAMIN D (Vitamin D3) 1,000 unit PO QDAY Qty: 0 0RF albuterol sulfate [Proventil HFA] 90 MCG/PUFF HFA aerosol inhaler 1 puff INH PRN Qty: 8.5 0RF (DME) Respironics Dreamstation Auto BIPAP Qty: 1 0RF Dose Instruction: As directed Label Comments: Pressure: IPAP 19 EPAP 11 DME: [facility] Instructions: As directed carvedilol 6.25 mg tablet 6.25 mg PO BID 0RF venlafaxine 150 mg capsule,extended release 24hr 150 mg PO DAILY 0RF aspirin 81 mg tablet,delayed release (DR/EC) 81 mg PO DAILY 0RF levothyroxine [Synthroid] 125 mcg tablet 125 mcg PO DAILY 0RF Referrals: Katherine Gusman PA-C [Primary Care Provider] -
[2021-03-06] MEDS: OXYCODONE/ACETAMINOPHEN 5/325 TABLET 1 TAB PO (16:05)
[2021-03-06 16:16] VITALS: BP 141/64; PULSE 75; RESP 18; O2SAT 96
== END 2021-03-06 16:19 | disposition home or self-care (01) ==
PROVIDERS: Emergency Provider Emergency Medicine; PCP Physician Assistant
DX: B02.9 Zoster without complications (principal)
CPT/HCPCS: 93005; 99283

== ENCOUNTER 2021-03-07 21:05 | Emergency (ER) | payer MEDICARE, OTHER, SELFPAY ==
[2021-03-07 21:06] VITALS: BP 172/79; PULSE 91; RESP 20; TEMP 36.4; O2SAT 97
--- NOTE | 2021-03-07 22:48 | ED_ITS ---
HPI - Back Pain/Injury General Chief Complaint: Back Pain/Injury Stated Complaint: Chest Pain Time Seen by Provider: 03/07/21 22:40 Source: patient History of Present Illness HPI Narrative: Patient seen here yesterday for same complaint of left side chest back flank shingles. Patient was seen at another facility previously and placed on valacyclovir. However no prednisone or steroids. Patient did try taking home OxyContin that was left over without relief. Continues to have this pain. No other complaints. Symptoms started about 4 days ago. Has not had shingles vaccine. Pain is left upper back and radiates to the front. Rash is consistent with distribution of pain. Related Data Home Medications Medication Instructions Recorded Confirmed VITAMIN D (Vitamin D3) 1,000 unit PO QDAY #0 09/26/12 03/05/21 albuterol sulfate 90 mcg/actuation 1 puff INH PRN #8.5 gm 09/26/12 03/05/21 aerosol inhaler (Proventil HFA) cyanocobalamin (vitamin B-12) 500 1,000 mcg PO QDAY #0 09/26/12 03/05/21 mcg tablet (Vitamin B-12) diltiazem HCl 240 mg capsule,24 240 mg PO DAILY 10/14/17 03/05/21 hr,extended release aspirin 81 mg tablet,delayed 81 mg PO DAILY 08/30/18 03/05/21 release carvedilol 6.25 mg tablet 6.25 mg PO BID 08/30/18 03/05/21 venlafaxine 150 mg 150 mg PO DAILY 08/30/18 03/05/21 capsule,extended release 24 hr Respironics Dreamstation Auto BIPAP #1 ea 09/03/18 03/05/21 levothyroxine 125 mcg tablet 125 mcg PO DAILY 01/10/21 03/05/21 (Synthroid) omeprazole magnesium 10 mg oral 40 mg PO DAILY ea 01/10/21 03/05/21 suspension,delayed release (Prilosec) Previous Rx's Medication Instructions Recorded methocarbamol 500 mg tablet 500 mg PO Q8H PRN #20 tab 03/05/21 valacyclovir 1 gram tablet 1,000 mg PO TID #21 tab 03/06/21 methylprednisolone 4 mg tablets in See Rx Instructions .ROUTE 03/07/21 a dose pack (Medrol (Rosales)) .COMPLEX #21 each ondansetron 4 mg disintegrating 4 mg PO Q8H PRN #10 tab 03/07/21 tablet oxycodone 5 mg tablet 5 mg PO Q6H PRN #16 tab 03/07/21 Allergies Allergy/AdvReac Type Severity Reaction Status Date / Time lisinopril [LISINOPRIL] Allergy Mild ANGIOEDEMA Verified 03/05/21 17:17 Penicillins [PENICILLINS] Allergy Mild RASH Verified 03/05/21 17:17 doxycycline AdvReac GI upset Verified 03/05/21 17:17 Review of Systems Review of Systems Narrative: GENERAL: Denies chills, fatigue, malaise, fever, sweats. HEENT: Denies sinus pain, ear pain, sore throat RESPIRATORY: Denies dyspnea, cough CARDIOVASCULAR: Denies chest pain, palpitations GASTROINTESTINAL: Denies nausea, vomiting, abdominal pain : Denies dysuria, frequency, hematuria MUSCULOSKELETAL: denies muscle or bony pain SKIN: Positive rash, skin lesions NEUROLOGIC: Denies weakness, numbness ROS Unobtainable: All systems reviewed & are unremarkable except as noted in HPI and below Patient History Medical History Allergic rhinitis Anxiety Asthma Bronchitis Depression Excessive daytime sleepiness GERD (gastroesophageal reflux disease) Hypertension Morbid obesity with body mass index (BMI) of 40.0 to 49.9 Primary insomnia Recurrent sinus infections Restless legs syndrome (RLS) Social History marital status: details: tania Hay, lives in [place] household members: spouse lives independently: Yes caregiver/support person: No housing: house pets and animals: Yes Smoking Status: Former smoker Smoking Status: Former smoker alcohol intake frequency: 0-2 drinks per day Substance Use Type: does not use Exam Narrative Exam Narrative: GENERAL: in no distress, not toxic not dyspneic HEAD: Normocephalic. NECK: Trachea midline. CARDIOVASCULAR: Regular rate and rhythm without murmurs RESPIRATORY: Clear to auscultation. Breath sounds equal bilaterally. No wheezes, rales, or rhonchi. BACK: No flank tenderness. NEURO: AOx4. SKIN: Warm and dry, there is shingles rash distribution of the left upper back/scapular area radiating anteriorly to the breast area. No vesicles. Rash is dry and papular at this time. PSYCH: Not anxious, is cooperative Initial Vital Signs Initial Vital Signs: Vital Signs Temperature 97.5 F L 03/07/21 21:06 Pulse Rate 91 H 03/07/21 21:06 Respiratory Rate 20 03/07/21 21:06 Blood Pressure 172/79 H 03/07/21 21:06 Pulse Oximetry 97 03/07/21 21:06 Course Course Course Narrative: Appropriate for discharge home. Orders Ordered: Discontinued Medications Prednisone (Prednisone 20 Mg Tablet) 60 mg PO NOW ONE Stop: 03/07/21 22:48 Last Admin: 03/07/21 22:52 Dose: 60 mg Documented by: JUNITO Reevaluation(s) Reevaluation #1: Reviewed treatment plan with the patient. No laboratory studies indicated. Pain is shingles distribution pain. Not cardiac. Patient agrees with treatment plan Time: 22:57 Vital Signs Vital signs: Vital Signs - 8 hr 03/07/21 21:06 Temperature 97.5 F L Pulse Rate 91 H Respiratory Rate 20 Blood Pressure 172/79 H Pulse Oximetry 97 MDM - Back Pain/Injury Differential Diagnosis Differential diagnosis: Likely other (Shingles pain) MDM Narrative Medical decision making narrative: Appropriate for discharge home. Exam reassuring. Clinically is shingles distribution dermatome pain with the nerves. Rating to the left anterior side. Not cardiac in source. No blood work or EKG or imaging indicated this time. Return precautions reviewed patient. She did not receive steroids with previous visits. Only valacyclovir. She does agree with Percocet as she has had that in the past for pain. Steroid started tonight. Return precautions reviewed with her Discharge Plan Departure Patient Disposition: Home Clinical Impression: Shingles Instructions: DI for Shingles Activity Restrictions/Additional Instructions: See family doctor in a week for recheck of your rash/shingles. No driving or operating machinery when taking prescribed pain medication. Continue steroid pack tomorrow. Continue valacyclovir prescribed to you from previous visit. Please avoid any contact with women or patient's with chemotherapy or immune suppression until rash resolves. Prescriptions: New methylprednisolone [Medrol (Rosales)] 4 mg tablets,dose pack See Rx Instructions .ROUTE .COMPLEX Qty: 21 0RF Rx Instructions: orally per package directions ondansetron 4 mg tablet,disintegrating 4 mg PO Q8H PRN (Reason: nausea and vomiting) Qty: 10 0RF oxycodone 5 mg tablet 5 mg PO Q6H PRN (Reason: pain) Qty: 16 0RF No Action diltiazem HCl 240 mg capsule,extended release 24 hr 240 mg PO DAILY 0RF Prilosec 10 mg susp,delayed release for recon 40 mg PO DAILY 0RF methocarbamol 500 mg tablet 500 mg PO Q8H PRN (Reason: muscle spasm) Qty: 20 0RF cyanocobalamin (vitamin B-12) [Vitamin B-12] 500 MCG tablet 1,000 mcg PO QDAY Qty: 0 0RF VITAMIN D (Vitamin D3) 1,000 unit PO QDAY Qty: 0 0RF albuterol sulfate [Proventil HFA] 90 MCG/PUFF HFA aerosol inhaler 1 puff INH PRN Qty: 8.5 0RF (DME) Respironics Dreamstation Auto BIPAP Qty: 1 0RF Dose Instruction: As directed Label Comments: Pressure: IPAP 19 EPAP 11 DME: [place] Rx Instructions: As directed valacyclovir 1 gram tablet 1,000 mg PO TID Qty: 21 0RF carvedilol 6.25 mg tablet 6.25 mg PO BID 0RF venlafaxine 150 mg capsule,extended release 24hr 150 mg PO DAILY 0RF aspirin 81 mg tablet,delayed release (DR/EC) 81 mg PO DAILY 0RF levothyroxine [Synthroid] 125 mcg tablet 125 mcg PO DAILY 0RF Referrals: Katherine Gusman PA-C [Primary Care Provider] -
[2021-03-07] MEDS: predniSONE 20 MG TABLET 60 MG PO (22:52)
--- NOTE | 2021-03-07 22:59 | PC.NURSE ---
pt c/o left side pain that starts under her arm, pt has a rash noted she has been dx with shingles and is on valcyclovir but is continuing to have pain
== END 2021-03-07 23:00 | disposition home or self-care (01) ==
PROVIDERS: Emergency Provider Emergency Medicine; PCP Physician Assistant
DX: B02.9 Zoster without complications (principal)
CPT/HCPCS: 99283

== ENCOUNTER → 2021-03-10 12:22 | Outpatient (CLI) | payer MEDICARE, OTHER, SELFPAY ==
--- NOTE | 2021-03-10 12:24 | DI.RAD.S_ITS ---
PROCEDURE: XR THORACIC SPINE 3V INDICATIONS: thoracic back pain TECHNIQUE: 3 views of the thoracic spine were acquired. COMPARISON: [facility], , XR CHEST 2V, 07/18/2019, 11:25. [facility], , THORACIC SPINE 2 VIEWS, 12/27/2015, 16:17. FINDINGS: Bones: No fractures or dislocations. No suspicious bony lesions. 12 pairs of ribs are noted, and appear intact where visualized. Minimal dextroconvex scoliotic curvature is seen. Accentuated thoracic kyphosis is seen. Multiple levels of thoracic spine degenerative change are seen, with scattered levels of mild disc space narrowing with associated relatively prominent anterior osteophyte formation. There is partial visualization of lumbar spine fixation hardware. Soft tissues: No paravertebral stripe thickening. IMPRESSION: Generalized thoracic spine degenerative changes are seen, without an acute abnormality seen by plain film. Dictated by: John Lisa M.D. on 03/10/2021 at 12:12 Approved by: John Lisa M.D. on 03/10/2021 at 12:14
== END ==
PROVIDERS: PCP Physician Assistant; Referring Provider Nurse Practitioner Family; Visit Provider Nurse Practitioner Family
DX: M47.814 Spondylosis without myelopathy or radiculopathy, thoracic region (principal); M54.6 Pain in thoracic spine
CPT/HCPCS: 72072

== ENCOUNTER 2021-03-19 10:22 | Emergency (ER) | payer MEDICARE, OTHER, SELFPAY ==
[2021-03-19] VITALS (8 sets, daily range): BP systolic 108–136; BP diastolic 52–71; PULSE 74–85; RESP 14–20; TEMP 36.6–36.9; O2SAT 95–99; BMI 40.6
--- NOTE | 2021-03-19 10:35 | DI.RAD.S_ITS ---
PROCEDURE: XR CHEST 1V INDICATIONS: chest pain TECHNIQUE: One view of the chest was acquired. COMPARISON: [facility], , CHEST 1 VIEW, 10/18/2011, 22:14. [facility], , XR THORACIC SPINE 3V, 03/10/2021, 12:23. [facility], , XR CHEST 2V, 07/18/2019, 11:25. FINDINGS: Surgical changes and devices: None. Lungs and pleura: On this semiupright portable chest examination, no large pneumothorax or large pleural effusions are seen. No focal infiltrates are seen. Low lung volumes are noted. This causes a crowded appearance to the lung markings and limits evaluation. Mediastinum: Mediastinal contours appear normal. Heart size is normal. Bones and chest wall: No suspicious bony lesions. Age-appropriate bony degenerative changes are seen. Overlying soft tissues appear unremarkable. IMPRESSION: Limited portable chest examination, without a significant cardiopulmonary abnormality identified. Dictated by: John Lisa M.D. on 03/19/2021 at 10:18 Approved by: John Lisa M.D. on 03/19/2021 at 10:19
--- NOTE | 2021-03-19 11:01 | ED.CHESTPAIN ---
HPI - Chest Pain General Chief Complaint: Chest Pain Stated Complaint: chest pains Time Seen by Provider: 03/19/21 10:45 Source: patient Mode of arrival: Ambulatory Limitations: no limitations History of Present Illness HPI narrative: The patient has experienced left-sided chest pain for about 1 week. The pain is intermittent. The pain is more prevalent in the afternoons and at night. The pain radiates from the left upper chest to her left scapular region. There is no change in discomfort with motion of the left shoulder. She has no cough or dyspnea. She has no headache, sore throat, no fever chills. She has no underlying history of coronary artery disease. She does have a history of hypertension, hypothyroidism and GERD. She has received COVID 19 vaccines +booster. She recently developed shingles in the left upper back. The shingles dermatome is consistent with the current chest pain described above. The shingles appears to be healing. Related Data Home Medications Medication Instructions Recorded Confirmed VITAMIN D (Vitamin D3) 1,000 unit PO QDAY #0 09/26/12 03/05/21 albuterol sulfate 90 mcg/actuation 1 puff INH PRN #8.5 gm 09/26/12 03/05/21 aerosol inhaler (Proventil HFA) cyanocobalamin (vitamin B-12) 500 1,000 mcg PO QDAY #0 09/26/12 03/05/21 mcg tablet (Vitamin B-12) diltiazem HCl 240 mg capsule,24 240 mg PO DAILY 10/14/17 03/05/21 hr,extended release aspirin 81 mg tablet,delayed 81 mg PO DAILY 08/30/18 03/05/21 release carvedilol 6.25 mg tablet 6.25 mg PO BID 08/30/18 03/05/21 venlafaxine 150 mg 150 mg PO DAILY 08/30/18 03/05/21 capsule,extended release 24 hr Respironics Dreamstation Auto BIPAP #1 ea 09/03/18 03/05/21 levothyroxine 125 mcg tablet 125 mcg PO DAILY 01/10/21 03/05/21 (Synthroid) omeprazole magnesium 10 mg oral 40 mg PO DAILY ea 01/10/21 03/05/21 suspension,delayed release (Prilosec) Previous Rx's Medication Instructions Recorded methocarbamol 500 mg tablet 500 mg PO Q8H PRN #20 tab 03/05/21 valacyclovir 1 gram tablet 1,000 mg PO TID #21 tab 03/06/21 methylprednisolone 4 mg tablets in See Rx Instructions .ROUTE 03/07/21 a dose pack (Medrol (Rosales)) .COMPLEX #21 each ondansetron 4 mg disintegrating 4 mg PO Q8H PRN #10 tab 03/07/21 tablet oxycodone 5 mg tablet 5 mg PO Q6H PRN #16 tab 03/07/21 hydrocodone 5 mg-acetaminophen 325 1 tab PO Q4-6H PRN #20 tab 03/19/21 mg tablet Allergies Allergy/AdvReac Type Severity Reaction Status Date / Time lisinopril [LISINOPRIL] Allergy Mild ANGIOEDEMA Verified 03/19/21 10:35 Penicillins [PENICILLINS] Allergy Mild RASH Verified 03/19/21 10:35 doxycycline AdvReac GI upset Verified 03/19/21 10:35 Review of Systems Constitutional Constitutional: Denies body ache(s), Denies chills, Denies fatigue and Denies fever(s) Eyes Eyes: Denies change in vision ENT Ears, Nose, Mouth, and Throat: Denies sinus pressure and Denies sore throat Cardiovascular Cardiovascular: Reports as per HPI, Denies rapid heart rate, Denies irregular heart rhythm, Denies leg edema, Denies lightheadedness and Denies dyspnea Respiratory Respiratory: Denies chest congestion, Denies cough and Denies dyspnea Gastrointestinal Gastrointestinal: Denies abdominal pain and Denies nausea Endocrine Endocrine: Denies fatigue Patient History Medical History (Updated 03/19/21 @ 16:11 by Jose Ramon Ferreira MD) Allergic rhinitis Anxiety Asthma Bronchitis Depression Excessive daytime sleepiness GERD (gastroesophageal reflux disease) Hypertension Morbid obesity with body mass index (BMI) of 40.0 to 49.9 Primary insomnia Recurrent sinus infections Restless legs syndrome (RLS) Shingles Social History marital status: details: tania Hay, lives in [place] household members: spouse lives independently: Yes caregiver/support person: No housing: house pets and animals: Yes Smoking Status: Former smoker Smoking Status: Former smoker alcohol intake frequency: 0-2 drinks per day Substance Use Type: does not use Exam Initial Vital Signs Initial Vital Signs: Vital Signs Pulse Rate 85 03/19/21 10:32 Blood Pressure 136/63 03/19/21 10:32 Pulse Oximetry 98 03/19/21 10:32 Const General: cooperative, comfortable, well developed and well groomed Orientation: Orientation (Intact) [facility] Head: normocephalic and occipital foramen tenderness Neck Neck: No lymphadenopathy and No JVD Chest Chest: rash (Resolving shingles rash from the left scapula to the left axilla.) Resp Auscultation: clear to auscultation bilaterally Cardio Rate: regular rate Rhythm: regular rhythm Heart Sounds: S1 normal, S2 normal, no click, no murmurs and no rubs GI Palpation: soft and No tender Auscultation: normal bowel sounds Skin Other: Resolving shingles rash is noted on chest exam. The pain she is experiencing is in the dermatome own associated with the shingles. Neuro General: patient alert, patient awake, patient oriented x3 and no focal motor deficits Extrem General: no pedal edema and no calf tenderness Psych Mental Status: mental status grossly normal Course Course Course Narrative: Cardiopulmonary evaluation is benign. She appears to have pain associated with the shingles. I gave her a dose of Toradol, with minimal effect. I did provide a brief course of Page. Orders Ordered: ED Orders 03/19/21 10:35 XR chest 1V Stat EKG-12 Lead Stat 03/19/21 11:00 Complete Blood Count AUTO DIFF Stat Comprehensive Metabolic Panel Stat Lipase Stat Magnesium Stat Partial Thromboplastin Time Stat Prothrombin Time INR Stat Troponin & CK Cardiac Panel Stat Discontinued Medications Hydrocodone Bitart/Acetaminophen (Hydrocodone/Acet 5/325 Tablet) 1 tab PO NOW ONE Stop: 03/19/21 12:42 Last Admin: 03/19/21 12:53 Dose: 1 tab Documented by: JOSI Ketorolac Tromethamine (Ketorolac 30 Mg/Ml Vial) 15 mg IV NOW ONE Stop: 03/19/21 11:05 Last Admin: 03/19/21 11:15 Dose: 15 mg Documented by: JOSI Vital Signs Vital signs: Vital Signs - 8 hr 03/19/21 10:32 03/19/21 10:36 03/19/21 11:00 Temperature 98.4 F Pulse Rate 85 83 78 Respiratory Rate 14 20 Blood Pressure 136/63 136/63 112/71 Pulse Oximetry 98 98 99 03/19/21 11:30 03/19/21 12:00 03/19/21 12:30 Temperature Pulse Rate 77 77 82 Respiratory Rate 15 20 Blood Pressure 116/56 L 108/52 L 112/57 L Pulse Oximetry 95 98 99 03/19/21 12:45 03/19/21 12:56 Temperature 97.9 F Pulse Rate 78 74 Respiratory Rate 18 18 Blood Pressure 113/67 Pulse Oximetry 96 98 MDM - Chest Pain Lab Data Result diagrams: 03/19/21 11:00 03/19/21 11:00 Labs: Lab Results 03/19/21 03/19/21 03/19/21 Range/Units 11:00 11:00 11:00 WBC 7.1 (4.5-11.0) X10^3/uL RBC 4.15 (4.0-5.2) X10^6/uL Hgb 12.7 (12.0-16.0) g/dL Hct 37.9 (36-46) % MCV 91.3 (80-100) fL MCH 30.5 (26-34) PG MCHC 33.4 (30-36) % RDW 12.9 (11.6-14.8) % Plt Count 223 (150-400) X10^3/uL Neut % (Auto) 66.6 (50-75) % Lymph % (Auto) 22.1 L (25-40) % [place] % (Auto) 7.1 (3-14) % Eos % (Auto) 3.5 (2-4) % Baso % (Auto) 0.7 (0-2) % Neut # (Auto) 4700 (0896-6812) /uL Lymph # (Auto) 1600 (5975-7997) /uL [place] # (Auto) 500 (0-900) /uL Eos # (Auto) 300 (0-450) /uL Baso # (Auto) 0 (0-100) /uL PT 10.8 (10.1-12.7) SECONDS INR 1.0 (0.9-1.3) APTT 31 (26.4-36.2) SECONDS Sodium 137 (137-145) mmol/L Potassium 4.0 (3.4-5.1) mmol/L Chloride 102 (98-107) mmol/L Carbon Dioxide 32 (22-32) mmol/L BUN 12 (7-17) mg/dL Creatinine 0.86 (0.52-1.04) mg/dL Estimated GFR > 60.0 (>60) mL/min BUN/Creatinine Ratio 14.0 (6-22) Glucose 119 H (80-110) mg/dL Calcium 8.9 (8.4-10.2) mg/dL Magnesium 1.9 (1.6-2.3) mg/dL Total Bilirubin 0.4 (0.2-1.3) mg/dL AST 27 (14-36) IU/L ALT 20 (<35) IU/L Alkaline Phosphatase 93 (38-126) U/L Total Creatine Kinase 25 L (30-135) U/L CK-MB (CK-2) TNP CK-MB (CK-2) Rel Index TNP Troponin I < 0.012 (0.01-0.034) ng/mL Total Protein 6.4 (6.3-8.2) g/dL Albumin 3.5 (3.5-5.0) g/dL Globulin 2.9 (1.7-4.1) g/dL Albumin/Globulin Ratio 1.2 (1.0-2.8) Lipase 67 (23-300) U/L Imaging Data Chest x-ray: Radiologist's Impression: The x-ray is suboptimal. There are no acute cardiopulmonary findings. ECG Data Attestation: I personally reviewed and interpreted this ECG as follows: (Normal sinus rhythm rate 79 beats per minute. Minimal criteria for LVH. Normal intervals. No acute ST T wave changes.) Discharge Plan Departure Patient Disposition: Home Clinical Impression: Acute herpes zoster neuropathy Instructions: Shingles Activity Restrictions/Additional Instructions: Take Tylenol or Advil as needed for pain. Page every 4-6 hours as needed for added pain control. If pain is not improved within next 10 days, follow-up with your doctor for ongoing pain management. Return here as needed. Prescriptions: New hydrocodone-acetaminophen 5-325 mg tablet 1 tab PO Q4-6H PRN (Reason: pain) Qty: 20 0RF No Action diltiazem HCl 240 mg capsule,extended release 24 hr 240 mg PO DAILY 0RF Prilosec 10 mg susp,delayed release for recon 40 mg PO DAILY 0RF methocarbamol 500 mg tablet 500 mg PO Q8H PRN (Reason: muscle spasm) Qty: 20 0RF cyanocobalamin (vitamin B-12) [Vitamin B-12] 500 MCG tablet 1,000 mcg PO QDAY Qty: 0 0RF VITAMIN D (Vitamin D3) 1,000 unit PO QDAY Qty: 0 0RF albuterol sulfate [Proventil HFA] 90 MCG/PUFF HFA aerosol inhaler 1 puff INH PRN Qty: 8.5 0RF (DME) Respironics Dreamstation Auto BIPAP Qty: 1 0RF Dose Instruction: As directed Label Comments: Pressure: IPAP 19 EPAP 11 DME: [facility] Rx Instructions: As directed methylprednisolone [Medrol (Rosales)] 4 mg tablets,dose pack See Rx Instructions .ROUTE .COMPLEX Qty: 21 0RF Rx Instructions: orally per package directions ondansetron 4 mg tablet,disintegrating 4 mg PO Q8H PRN (Reason: nausea and vomiting) Qty: 10 0RF oxycodone 5 mg tablet 5 mg PO Q6H PRN (Reason: pain) Qty: 16 0RF valacyclovir 1 gram tablet 1,000 mg PO TID Qty: 21 0RF carvedilol 6.25 mg tablet 6.25 mg PO BID 0RF venlafaxine 150 mg capsule,extended release 24hr 150 mg PO DAILY 0RF aspirin 81 mg tablet,delayed release (DR/EC) 81 mg PO DAILY 0RF levothyroxine [Synthroid] 125 mcg tablet 125 mcg PO DAILY 0RF Referrals: Katherine Gusman PA-C [Primary Care Provider] -
[2021-03-19 11:06] LABS: Add Manual Diff / Slide Review NO; Basophils Absolute Auto 0 /uL (0-100); Basophils Percent Auto 0.7 % (0-2); Eosinophils Absolute Auto 300 /uL (0-450); Eosinophils Percent Auto 3.5 % (2-4); Hematocrit 37.9 % (36-46); Hemoglobin 12.7 g/dL (12.0-16.0); Lymphocytes Absolute Auto 1600 /uL (1100-4500); Lymphocytes Percent Auto 22.1 % (25-40); Mean Corpuscular HGB Conc 33.4 % (30-36); Mean Corpuscular Hemoglobin 30.5 PG (26-34); Mean Corpuscular Volume 91.3 fL (80-100); Monocytes Absolute Auto 500 /uL (0-900); Monocytes Percent Auto 7.1 % (3-14); Neutrophils Absolute Auto 4700 /uL (1500-7000); Neutrophils Percent Auto 66.6 % (50-75); Platelet Count 223 X10^3/uL (150-400); Red Blood Cell Count 4.15 X10^6/uL (4.0-5.2); Red Cell Distribution Width 12.9 % (11.6-14.8); White Blood Cell Count 7.1 X10^3/uL (4.5-11.0)
[2021-03-19] MEDS: KETOROLAC 30 MG/ML VIAL 15 MG IV (11:15)
[2021-03-19 11:21] LABS: Prothrombin Time 10.8 SECONDS (10.1-12.7)
[2021-03-19 11:24] LABS: PTT Partial Thromboplastin Tim 31 SECONDS (26.4-36.2)
[2021-03-19 11:26] LABS: Alanine Aminotransferase 20 IU/L (<35); Albumin 3.5 g/dL (3.5-5.0); Albumin Globulin Ratio 1.2 (1.0-2.8); Alkaline Phosphatase 93 U/L (38-126); Aspartate Aminotransferase 27 IU/L (14-36); Bilirubin Total 0.4 mg/dL (0.2-1.3); Blood Urea Nitrogen 12 mg/dL (7-17); Calcium 8.9 mg/dL (8.4-10.2); Carbon Dioxide 32 mmol/L (22-32); Chloride 102 mmol/L (98-107); Creatine Kinase 25 U/L (30-135); Estimated Glomerular Filt Rate > 60.0 mL/min (>60); Globulin 2.9 g/dL (1.7-4.1); Glucose 119 mg/dL (80-110); HEMOLYSIS < 15 (0-50); Lipase 67 U/L (23-300); Magnesium 1.9 mg/dL (1.6-2.3); Sodium 137 mmol/L (137-145); Total Protein 6.4 g/dL (6.3-8.2)
[2021-03-19 11:37] LABS: Troponin I < 0.012 ng/mL (0.01-0.034)
[2021-03-19] MEDS: HYDROCODONE/ACET 5/325 TABLET 1 TAB PO (12:53)
== END 2021-03-19 13:15 | disposition home or self-care (01) ==
PROVIDERS: Emergency Provider Emergency Medicine; PCP Physician Assistant
DX: B02.8 Zoster with other complications (principal); R07.9 Chest pain, unspecified; Z87.891 Personal history of nicotine dependence
CPT/HCPCS: 36415; 71045; 80053; 82550; 83690; 83735; 84484; 85025; 85610; 85730; 93005; 93010; 96374; 99284; J1885

== ENCOUNTER → 2021-07-20 14:47 | Outpatient (CLI) | payer MEDICARE, OTHER, SELFPAY | PROVIDERS: PCP Physician Assistant; Referring Provider Physician Assistant; Visit Provider Physician Assistant | DX: Z53.9 Procedure and treatment not carried out, unspecified reason (principal) ==

== ENCOUNTER → 2021-08-17 09:19 | Outpatient (CLI) | payer MEDICARE, OTHER, SELFPAY ==
--- NOTE | 2021-08-17 | DI.US.S_ITS ---
LIMITED ULTRASOUND OF LEFT BREAST AND AXILLA: 08/17/2021 CLINICAL: Focal left breast pain. Comparison is made to exams dated: 08/17/2021 mammogram, 05/29/2020 mammogram, and 12/19/2018 mammogram - [facility]. Real-time ultrasound of the left breast upper outer quadrant and axilla regions was performed. Denson scale images of the real-time examination were reviewed. No significant abnormalities were seen sonographically in the left breast or the left axilla. IMPRESSION: NEGATIVE There is no sonographic evidence of malignancy. There is no abnormality seen in the left breast to correspond with the diffuse pain in the upper outer quadrant, however, clinical followup is recommended. A 1 year screening mammogram is recommended. This exam was interpreted at Station ID: [id number]. Electronically Signed By: Jose smith:08/17/2021 16:00:13 letter sent: Clinical Evaluation Ultrasound BI-RADS: 1 Negative
--- NOTE | 2021-08-17 | DI.MG.S_ITS ---
BILATERAL DIGITAL DIAGNOSTIC MAMMOGRAM 3D/2D: 08/17/2021 CLINICAL: Left breast pain. Comparison is made to exams dated: 05/29/2020 mammogram, 12/19/2018 mammogram, and 09/24/2017 mammogram - [facility]. There are scattered fibroglandular elements in both breasts. No significant masses, calcifications, or other findings are seen in either breast. IMPRESSION: INCOMPLETE: NEEDS ADDITIONAL IMAGING EVALUATION There is no abnormality seen in the left breast to correspond with the pain in the upper outer quadrant, however, ultrasound is recommended. Based on the Tyrer Cuzick model (a risk assessment model) the patient's lifetime risk is 2.5% and her 10 year risk is 0.0%. According to the ACR, ACS, and NCCN guidelines, an annual breast MRI exam along with mammogram is recommended if the patient's lifetime risk is 20% or greater. This exam was interpreted at Station ID: [id number]. NOTE: For mammograms, a report in lay terms will be sent to the patient. Approximately 15% of breast malignancies will not be visualized mammographically. In the management of a palpable breast mass, a negative mammogram must not discourage biopsy of a clinically suspicious lesion. Electronically Signed By: Jose chopra/yobani:08/17/2021 15:59:06 ACR BI-RADS Category 0: Incomplete [id number]
== END ==
PROVIDERS: PCP Physician Assistant; Referring Provider Physician Assistant; Visit Provider Physician Assistant
DX: N64.4 Mastodynia (principal); R92.2 Inconclusive mammogram
CPT/HCPCS: 76642; 77066; G0279

== ENCOUNTER → 2021-08-27 10:32 | Outpatient (CLI) | payer MEDICARE, OTHER, SELFPAY ==
--- NOTE | 2021-08-27 10:34 | DI.RAD.S_ITS ---
PROCEDURE: XR CHEST 2V INDICATIONS: chronic cough TECHNIQUE: 2 views of the chest were acquired. COMPARISON: [facility], , XR CHEST 1V, 03/19/2021, 11:09. FINDINGS: Surgical changes and devices: Lumbar spine instrumentation partially imaged Lungs and pleura: Lungs are clear. No pleural effusions or pneumothorax. Mediastinum: Mediastinal contours are normal. Heart size is normal. Bones and chest wall: No suspicious bony abnormalities. Soft tissues appear unremarkable. IMPRESSION: No acute cardiopulmonary findings Approved by: Niko Vázquez M.D. on 08/27/2021 at 16:30
== END ==
PROVIDERS: PCP Physician Assistant; Referring Provider Physician Assistant; Visit Provider Physician Assistant
DX: R05.3 Chronic cough (principal)
CPT/HCPCS: 71046

== ENCOUNTER → 2021-10-13 10:22 | Outpatient (CLI) | payer MEDICARE, OTHER, SELFPAY ==
--- NOTE | 2021-10-13 | DI.RAD.S_ITS ---
PROCEDURE: XR CHEST 2V INDICATIONS: cough post-covid TECHNIQUE: 2 views of the chest were acquired. COMPARISON: [facility], , XR CHEST 2V, 08/27/2021, 10:26. FINDINGS: Surgical changes and devices: Fixation hardware in visualized lower lumbar spine is seen. Lungs and pleura: Lungs are clear. No pleural effusions or pneumothorax. Mediastinum: Mediastinal contours are normal. Heart size is normal. Bones and chest wall: No suspicious bony abnormalities. Soft tissues appear unremarkable. IMPRESSION: No focal infiltrate, pleural effusion or pneumothorax. Dictated by: Pro Watts M.D. on 10/13/2021 at 11:46 Approved by: Pro Watts M.D. on 10/13/2021 at 11:46
== END ==
PROVIDERS: PCP Physician Assistant; Referring Provider Physician Assistant; Visit Provider Physician Assistant
DX: R05.3 Chronic cough; U09.9 Post COVID-19 condition, unspecified
CPT/HCPCS: 71046

== ENCOUNTER → 2021-11-21 11:20 | Outpatient (CLI) | payer MEDICARE, OTHER, SELFPAY ==
--- NOTE | 2021-11-21 11:22 | DI.RAD.S_ITS ---
PROCEDURE: XR CHEST 2V INDICATIONS: Short of breath, cough, unintentional weight loss TECHNIQUE: 2 views of the chest were acquired. COMPARISON: [facility], , XR CHEST 1V, 03/19/2021, 11:09. [facility], , BREAST LT LIMITED, 08/17/2021, 10:20. [facility], CR, XR CHEST 2V, 08/27/2021, 10:26. [facility], CR, XR CHEST 2V, 10/13/2021, 10:29. FINDINGS: There are numerous tiny 3-5 millimeter nodular opacities in both lungs which are new from the prior study. Some these may represent shadows due to pulmonary vessels, however many of the peripheral nodules are greater in diameter than would be expected for the regional vasculature. Prominent central/perihilar interstitial markings present bilaterally. No focal consolidation. Normal heart size. IMPRESSION: Suggestion of some numerous tiny bilateral pulmonary nodules. Further evaluation with CT chest recommended. Nonspecific interstitial markings in the central/perihilar lungs. This could indicate edema versus an infectious/inflammatory bronchitis. Dictated by: Leonardo Garza M.D. on 11/21/2021 at 12:06 Approved by: Leonardo Garza M.D. on 11/21/2021 at 12:10
[2021-11-21 16:50] LABS: Add Manual Diff / Slide Review NO; Basophils Absolute Auto 0 /uL (0-100); Basophils Percent Auto 0.6 % (0-2); Eosinophils Absolute Auto 400 /uL (0-450); Eosinophils Percent Auto 6.1 % (2-4); Hemoglobin 12.8 g/dL (12.0-16.0); Lymphocytes Absolute Auto 2000 /uL (1100-4500); Lymphocytes Percent Auto 28.8 % (25-40); Mean Corpuscular HGB Conc 32.8 % (30-36); Mean Corpuscular Hemoglobin 29.2 PG (26-34); Mean Corpuscular Volume 89.1 fL (80-100); Monocytes Absolute Auto 500 /uL (0-900); Monocytes Percent Auto 8.1 % (3-14); Neutrophils Absolute Auto 3800 /uL (1500-7000); Neutrophils Percent Auto 56.4 % (50-75); Platelet Count 229 X10^3/uL (150-400); Red Blood Cell Count 4.38 X10^6/uL (4.0-5.2); Red Cell Distribution Width 13.6 % (11.6-14.8); White Blood Cell Count 6.8 X10^3/uL (4.5-11.0)
[2021-11-21 17:08] LABS: Alanine Aminotransferase 16 IU/L (<35); Albumin 3.9 g/dL (3.5-5.0); Albumin Globulin Ratio 1.3 (1.0-2.8); Alkaline Phosphatase 106 U/L (38-126); Aspartate Aminotransferase 23 IU/L (14-36); BUN Creatinine Ratio 16.9 (6-22); Bilirubin Total 0.2 mg/dL (0.2-1.3); Blood Urea Nitrogen 15 mg/dL (7-17); Calcium 8.8 mg/dL (8.4-10.2); Carbon Dioxide 30 mmol/L (22-32); Chloride 101 mmol/L (98-107); Estimated Glomerular Filt Rate > 60 mL/min (>60); Globulin 3.1 g/dL (1.7-4.1); Glucose 98 mg/dL (80-110); HEMOLYSIS < 15 (0-50); Sodium 138 mmol/L (137-145)
[2021-11-21 17:16] LABS: NT-proBNP (BNP-Adult 18+) 70 pg/mL (<450)
== END ==
PROVIDERS: PCP Physician Assistant; Referring Provider Student in an Organized Health Care Education/Training Program; Visit Provider Student in an Organized Health Care Education/Training Program
DX: R06.02 Shortness of breath (principal); R63.4 Abnormal weight loss
CPT/HCPCS: 36415; 71046; 80053; 83880; 85025

== ENCOUNTER → 2021-11-25 13:32 | Outpatient (CLI) | payer MEDICARE, OTHER, SELFPAY ==
--- NOTE | 2021-11-25 | DI.CT.S_ITS ---
PROCEDURE: CT CHEST W CON INDICATIONS: Other nonspecific abnormal finding of lung field TECHNIQUE: After the administration of intravenous contrast, 5 mm thick sections acquired from the pulmonary apices to the posterior costophrenic angles. 1 mm axial lung, 5 mm thick coronal and sagittal reformats and 7 mm axial MIP were acquired. For radiation dose reduction, the following was used: automated exposure control, adjustment of mA and/or kV according to patient size. COMPARISON: [facility], CR, XR CHEST 2V, 11/21/2021, 11:26. FINDINGS: Image quality: Excellent. Lungs and pleura: No acute air space opacities. There is no evidence of pulmonary nodules but there is a mild generalized interstitial prominence which may simply reflect prior smoking history No pleural effusions or pneumothorax. Central and peripheral airways are patent and normal in caliber. Mediastinum: Heart size is normal. No pericardial effusion. No mediastinal or hilar adenopathy by size criteria. Thoracic aorta and central pulmonary arteries are normal in size. Esophagus is normal in caliber. No hiatal hernia. Bones and chest wall: No suspicious bony lesions. No vertebral body compression fractures. No axillary or supraclavicular adenopathy by size criteria. Thyroid gland appears normal where well seen. Abdomen: Visualized upper abdominal solid organs appear normal. Upper abdominal bowel loops are normal in caliber. IMPRESSION: Mild chronic appearing interstitial prominence, no pulmonary nodules present. No adenopathy is seen. The interstitial prominence may reflect a prior smoking history, but also can be seen in patients with prior nonspecific interstitial lung disease. No evidence of active alveolitis at this time. Dictated by: Mark Rubio M.D. on 11/25/2021 at 15:27 Approved by: Mark Rubio M.D. on 11/25/2021 at 15:36
== END ==
PROVIDERS: PCP Physician Assistant; Referring Provider Physician Assistant; Visit Provider Physician Assistant
DX: R91.8 Other nonspecific abnormal finding of lung field (principal)
CPT/HCPCS: 71260; Q9967

== ENCOUNTER → 2022-03-28 14:45 | Outpatient (CLI) | payer MEDICARE, OTHER, SELFPAY ==
--- NOTE | 2022-03-28 14:50 | DI.US.S_ITS ---
PROCEDURE: [facility] VENOUS LOW EXTREM RT INDICATIONS: TENDERNESS OF RIGHT KNEE/LEG TECHNIQUE: Real-time imaging, as well as color and pulse Doppler interrogation, were performed of the lower extremity deep veins from the inguinal ligament to the popliteal fossa. COMPARISON: [facility], [facility] VENOUS LOW EXTREM RT, 01/11/2021, 7:45. FINDINGS: The common femoral, femoral and popliteal veins are normally compressible, and free of intraluminal thrombus. Color and pulse Doppler demonstrate normal phasic intraluminal flow. There is normal augmentation response to distal compression maneuver. Burrows's cyst is present measuring 2.8 x 0.4 x 2.6 cm. IMPRESSION: No deep venous thrombosis. Burrows cyst is noted. Dictated by: Afshan Palacios M.D. on 03/28/2022 at 15:57 Approved by: Afshan Palacios M.D. on 03/28/2022 at 15:57
== END ==
PROVIDERS: PCP Physician Assistant; Referring Provider Physical Medicine & Rehabilitation Pain Medicine; Visit Provider Physical Medicine & Rehabilitation Pain Medicine
DX: M25.561 Pain in right knee (principal); M71.21 Synovial cyst of popliteal space [Baker], right knee
CPT/HCPCS: 93971

== ENCOUNTER 2022-03-31 11:19 | Emergency (ER) | payer MEDICARE, OTHER, SELFPAY ==
[2022-03-31] VITALS (9 sets, daily range): BP systolic 117–141; BP diastolic 58–72; PULSE 69–87; RESP 14; TEMP 36.2; O2SAT 94–100; BMI 36.1
--- NOTE | 2022-03-31 12:23 | DI.RAD.S_ITS ---
PROCEDURE: XR LUMBAR SPINE 2-3V INDICATIONS: fall 03/26 hip and LBP TECHNIQUE: 3 views of the lumbar spine were acquired. COMPARISON: [facility], CR, XR LUMBAR SPINE 2-3V, 05/27/2020, 14:11. FINDINGS: Bones: 5 [id number] vertebrae are present. There is normal bony alignment. Remote L3-L4 fusion. Fusion hardware intact with no evidence of hardware failure or loosening. Question subtle superior endplate compression fracture of at L5. This is not definite. Soft tissues: Overlying bowel gas pattern is normal. No suspicious soft tissue calcifications. IMPRESSION: Question L5 superior endplate compression fracture. Consider CT for verification. Dictated by: Messi Russell M.D. on 03/31/2022 at 12:57 Approved by: Messi Russell M.D. on 03/31/2022 at 12:58
--- NOTE | 2022-03-31 12:23 | DI.RAD.S_ITS ---
PROCEDURE: XR HIP W PEL IF DONE RT 2V INDICATIONS: fall 03/26, new hip pain TECHNIQUE: AP pelvis with lateral view(s) of the right hip(s). COMPARISON: None. FINDINGS: Bones: No fractures or dislocations. Pelvic ring appears intact. No suspicious bony lesions. Soft tissues: The visualized bowel gas pattern is normal. No suspicious soft tissue calcifications. IMPRESSION: No evidence acute bony abnormality of the pelvis and right hip. If clinical suspicion and/or symptoms persist, further assessment with repeat plain films, or advanced imaging (e.g., CT, MRI, or bone scan) may be helpful for further assessment. Dictated by: Messi Russell M.D. on 03/31/2022 at 12:56 Approved by: Messi Russell M.D. on 03/31/2022 at 12:57
--- NOTE | 2022-03-31 12:53 | ED.FALL ---
HPI - Fall <Madeleine yS PA-C - Last Filed: 03/31/22 17:37> General Chief Complaint: Fall Stated Complaint: sent by back & hip pain Fell 03/26 Time Seen by Provider: 03/31/22 12:00 Source: patient Mode of arrival: Ambulatory History of Present Illness HPI Narrative: 77-year-old female with a history of right-sided weakness, frequent falls, lumbar spinal fusion presents with concern for worsening low back pain and right hip pain for the past 5 days since she had fall at home on Sunday. Patient states she normally walks with a walker and has falls about once a week she always falls to her right side. On Sunday she fell at home, she said this fall was a bit different she normally just topicals onto her right side but this fall was ?incremental? she said she went down little by little but something happened to her hip and tweaked it, since then she has had to use a walker because her right-sided low back pain and her right hip have been more uncomfortable. She is also been using a walker because she feels it is more stable than the cane. She says she is been not able to do her normal activities since her fall on Sunday because her pain is worse than usual. She takes a g of Tylenol in the mornings daily for her chronic pain. She has not been taking ibuprofen for over a year now since her GI doctor told her not to. She does endorse some chronic difficulty sleeping and notes that she has previously tried a muscle relaxer and tramadol but these make her feel loopy. Patient also states that she has a spot on her right buttock/upper thigh that has been there for about a week she is worried there is a rash and would like to have it looked at. She says she is currently in between doctors and was referred to the emergency department by Dr Gusman but is going to be seeing Dr. Vo soon. She denies any new numbness or tingling in her legs, any saddle paresthesias, any fevers, chills, dysuria, diarrhea, constipation or other symptoms. Related Data Home Medications Medication Instructions Recorded Confirmed VITAMIN D (Vitamin D3) 1,000 unit PO QDAY ##0 09/26/12 01/19/22 albuterol sulfate 90 mcg/actuation 1 puff INH PRN ##8.5 09/26/12 01/19/22 aerosol inhaler (Proventil HFA) cyanocobalamin (vitamin B-12) 500 1,000 mcg PO QDAY ##0 09/26/12 01/19/22 mcg tablet (Vitamin B-12) diltiazem HCl 240 mg capsule,24 240 mg PO DAILY 10/14/17 01/19/22 hr,extended release aspirin 81 mg tablet,delayed 81 mg PO DAILY 08/30/18 01/19/22 release carvedilol 6.25 mg tablet 6.25 mg PO BID 08/30/18 01/19/22 venlafaxine 150 mg 150 mg PO DAILY 08/30/18 01/19/22 capsule,extended release 24 hr Respironics Dreamstation Auto BIPAP #1 ea 09/03/18 01/19/22 levothyroxine 125 mcg tablet 125 mcg PO DAILY 01/10/21 01/19/22 (Synthroid) omeprazole magnesium 10 mg oral 40 mg PO DAILY 01/10/21 01/19/22 suspension,delayed release (Prilosec) Previous Rx's Medication Instructions Recorded methocarbamol 500 mg tablet 500 mg PO Q8H PRN muscle spasm #20 03/05/21 tabs benzonatate 100 mg capsule 100 mg PO TID PRN cough 7 days #21 11/21/21 caps guaifenesin 100 mg/5 mL oral liquid 200 mg (10 mL) PO Q4H PRN cough 11/21/21 #1,000 mL Allergies Allergy/AdvReac Type Severity Reaction Status Date / Time lisinopril [LISINOPRIL] Allergy Mild ANGIOEDEMA Verified 03/31/22 11:36 Penicillins [PENICILLINS] Allergy Mild RASH Verified 03/31/22 11:36 doxycycline AdvReac GI upset Verified 03/31/22 11:36 Review of Systems <Madeleine Sy PA-C - Last Filed: 03/31/22 17:37> Review of Systems Narrative: Unremarkable except as noted in the HPI Patient History <Madeleine Sy PA-C - Last Filed: 03/31/22 17:37> Medical History Allergic rhinitis Anxiety Asthma Bronchitis Depression Excessive daytime sleepiness GERD (gastroesophageal reflux disease) Hypertension Morbid obesity with body mass index (BMI) of 40.0 to 49.9 Primary insomnia Recurrent sinus infections Restless legs syndrome (RLS) Shingles Social History marital status: details: tania Hay, lives in [place] household members: spouse lives independently: Yes caregiver/support person: No housing: house pets and animals: Yes Smoking Status: Former smoker Smoking Status: Former smoker alcohol intake frequency: 0-2 drinks per day Substance Use Type: does not use Exam <Madeleine Sy PA-C - Last Filed: 03/31/22 17:37> Narrative Exam Narrative: GENERAL: 77 year old patient appears stated age. Obese, Well-developed patient, in mild distress, cane at patient's side, talkative and interactive. HEAD: Atraumatic. Normocephalic. EYES: Pupils equal round and reactive. Extraocular motions intact. No scleral icterus. No injection or drainage. ENT: Nose without bleeding, purulent drainage. Airway patent. NECK: Trachea midline. Non tender CARDIOVASCULAR: Regular rate and rhythm without murmurs, gallops, or rubs. RESPIRATORY: Clear to auscultation. Breath sounds equal bilaterally. No wheezes, rales, or rhonchi. GASTROINTESTINAL: Abdomen soft, non-tender, nondistended. EXTREMITIES: Patient has difficulty lifting the right leg off the bed more than about 6 in. Strength is intact 5/5 with flexion at the hip with legs extended while lying. The right knee is tender with some swelling at baseline per patient. There is tenderness with palpation over the right trochanter and proximal femur laterally. There is also tenderness over the right mid/lateral buttock. No bruising noted. No edema or joint tenderness. BACK: There are 3 well-healed surgical vertical scars 1 midline and 1 left and right laterally over the lumbar spine. Patient has tenderness with palpation over the lumbar spine and sacroiliac joint. Otherwise Nontender without deformity or crepitance. No flank tenderness. NEURO: AOx3. SKIN: There is a small scabbed lesion on the patient's right low buttock approximately 1 cm with slight erythema immediately around the scab but no fluctuance drainage or heat noted. No other rash or erythema of visible areas Initial Vital Signs Initial Vital Signs: Vital Signs Temperature 97.1 F L 03/31/22 11:25 Pulse Rate 85 03/31/22 11:25 Respiratory Rate 14 03/31/22 11:25 Blood Pressure 141/64 H 03/31/22 11:25 Pulse Oximetry 99 03/31/22 11:25 Oxygen Delivery Method 03/31/22 11:25 <Marisol Mckeon DO - Last Filed: 04/01/22 08:01> Initial Vital Signs Initial Vital Signs: Vital Signs Temperature 97.1 F L 03/31/22 11:25 Pulse Rate 85 03/31/22 11:25 Respiratory Rate 14 03/31/22 11:25 Blood Pressure 141/64 H 03/31/22 11:25 Pulse Oximetry 99 03/31/22 11:25 Oxygen Delivery Method 03/31/22 11:25 Course <Madeleine Sy PA-C - Last Filed: 03/31/22 17:37> Orders Ordered: Discontinued Medications Acetaminophen (Acetaminophen 325 Mg Tablet) 975 mg PO NOW ONE Stop: 03/31/22 13:25 Last Admin: 03/31/22 13:41 Dose: 975 mg Documented By: NOAM Ketorolac Tromethamine (Ketorolac 30 Mg/Ml Vial) 15 mg IV NOW ONE Stop: 03/31/22 14:39 Last Admin: 03/31/22 14:47 Dose: 15 mg Documented By: NOAM Vital Signs Vital signs: Vital Signs - 8 hr 03/31/22 11:25 03/31/22 13:46 03/31/22 13:49 Temperature 97.1 F L Pulse Rate 85 Respiratory Rate 14 Blood Pressure 141/64 H 140/67 Pulse Oximetry 99 100 Oxygen Delivery Method Room Air 03/31/22 13:49 03/31/22 14:03 03/31/22 14:03 Temperature Pulse Rate 74 87 Respiratory Rate Blood Pressure 136/72 Pulse Oximetry 100 94 Oxygen Delivery Method 03/31/22 14:30 03/31/22 14:30 03/31/22 14:49 Temperature Pulse Rate 69 Respiratory Rate Blood Pressure 118/58 L Pulse Oximetry 98 99 Oxygen Delivery Method 03/31/22 15:00 03/31/22 15:18 03/31/22 15:13 Temperature Pulse Rate 75 Respiratory Rate Blood Pressure 121/69 117/65 117/65 Pulse Oximetry 97 Oxygen Delivery Method Room Air 03/31/22 15:13 Temperature Pulse Rate 75 Respiratory Rate Blood Pressure Pulse Oximetry 96 Oxygen Delivery Method <Marisol Mckeon DO - Last Filed: 04/01/22 08:01> Orders Ordered: Discontinued Medications Acetaminophen (Acetaminophen 325 Mg Tablet) 975 mg PO NOW ONE Stop: 03/31/22 13:25 Last Admin: 03/31/22 13:41 Dose: 975 mg Documented By: SB Ketorolac Tromethamine (Ketorolac 30 Mg/Ml Vial) 15 mg IV NOW ONE Stop: 03/31/22 14:39 Last Admin: 03/31/22 14:47 Dose: 15 mg Documented By: SB Vital Signs Vital signs: Vital Signs - 8 hr 03/31/22 11:25 03/31/22 13:46 03/31/22 13:49 Temperature 97.1 F L Pulse Rate 85 Respiratory Rate 14 Blood Pressure 141/64 H 140/67 Pulse Oximetry 99 100 Oxygen Delivery Method Room Air 03/31/22 13:49 03/31/22 14:03 03/31/22 14:03 Temperature Pulse Rate 74 87 Respiratory Rate Blood Pressure 136/72 Pulse Oximetry 100 94 Oxygen Delivery Method 03/31/22 14:30 03/31/22 14:30 03/31/22 14:49 Temperature Pulse Rate 69 Respiratory Rate Blood Pressure 118/58 L Pulse Oximetry 98 99 Oxygen Delivery Method 03/31/22 15:00 03/31/22 15:18 03/31/22 15:13 Temperature Pulse Rate 75 Respiratory Rate Blood Pressure 121/69 117/65 117/65 Pulse Oximetry 97 Oxygen Delivery Method Room Air 03/31/22 15:13 Temperature Pulse Rate 75 Respiratory Rate Blood Pressure Pulse Oximetry 96 Oxygen Delivery Method MDM - Fall <Madeleine Sy PA-C - Last Filed: 03/31/22 17:37> Differential Diagnosis Differential diagnosis: Likely compression fracture and other (acute on chronic LBP/hip pain, hip fracture, fall, disc compression) Medical Records Attestation: I reviewed the patient's medical records. Lab Data Attestation: I reviewed the patient's lab results. 03/31/22 13:35 03/31/22 13:35 Labs: Lab Results 03/31/22 03/31/22 Range/Units 13:35 13:35 WBC 7.3 (4.5-11.0) X10^3/uL RBC 4.39 (4.0-5.2) X10^6/uL Hgb 13.0 (12.0-16.0) g/dL Hct 39.1 (36-46) % MCV 89.2 (80-100) fL MCH 29.7 (26-34) PG MCHC 33.3 (30-36) % RDW 12.7 (11.6-14.8) % Plt Count 236 (150-400) X10^3/uL Neut % (Auto) 65.7 (50-75) % Lymph % (Auto) 23.8 L (25-40) % Yates % (Auto) 6.0 (3-14) % Eos % (Auto) 3.7 (2-4) % Baso % (Auto) 0.8 (0-2) % Neut # (Auto) 4800 (8236-8818) /uL Lymph # (Auto) 1700 (2561-1129) /uL Yates # (Auto) 400 (0-900) /uL Eos # (Auto) 300 (0-450) /uL Baso # (Auto) 100 (0-100) /uL Sodium 139 (137-145) mmol/L Potassium 4.0 (3.4-5.1) mmol/L Chloride 101 (98-107) mmol/L Carbon Dioxide 29 (22-32) mmol/L BUN 16 (7-17) mg/dL Creatinine 0.82 (0.52-1.04) mg/dL Estimated GFR > 60 (>60) mL/min BUN/Creatinine Ratio 19.5 (6-22) Glucose 68 L (80-110) mg/dL Calcium 9.0 (8.4-10.2) mg/dL Total Bilirubin 0.4 (0.2-1.3) mg/dL AST 27 (14-36) IU/L ALT 19 (<35) IU/L Alkaline Phosphatase 113 (38-126) U/L Total Protein 7.0 (6.3-8.2) g/dL Albumin 4.0 (3.5-5.0) g/dL Globulin 3.0 (1.7-4.1) g/dL Albumin/Globulin Ratio 1.3 (1.0-2.8) Imaging Data Extremity x-ray #1: Radiologist's Impression: [address] [address] XRay Report Signed Patient: Marie Leung MR#: [id number] : 1945 Acct:[id number] Age/Sex: 77 / F Date of Service: 03/31/22 Loc: ED Accession Number: [id number] ?? Procedure: XR hip w pel if done RT 2V Ordering Provider: Madeleine Sy P.A-C PROCEDURE:? XR HIP W PEL IF DONE RT 2V ? INDICATIONS:? fall 2/, new hip pain ? TECHNIQUE:? AP pelvis with lateral view(s) of the right hip(s).? ? COMPARISON:? None. ? FINDINGS:? ? Bones:? No fractures or dislocations.? Pelvic ring appears intact.? No suspicious bony lesions.? ? Soft tissues:? The visualized bowel gas pattern is normal.? No suspicious soft tissue calcifications.? ? ? IMPRESSION:? No evidence acute bony abnormality of the pelvis and right hip. ? If clinical suspicion and/or symptoms persist, further assessment with repeat plain films, or advanced imaging (e.g., CT, MRI, or bone scan) may be helpful for further assessment. ? Dictated by: Messi Russell M.D. on 03/31/2022 at 12:56 ? ? Approved by: Messi Russell M.D. on 03/31/2022 at 12:57?? L spine XR: Radiologist's Impression: [address] [address] XRay Report Signed Patient: Marie Leung MR#: [id number] : 1945 Acct:[id number] Age/Sex: 77 / F Date of Service: 03/31/22 Loc: ED Accession Number: [id number] ?? Procedure: XR lumbar spine 2-3V Ordering Provider: Madeleine Sy P.A-C PROCEDURE:? XR LUMBAR SPINE 2-3V ? INDICATIONS:? fall 2 hip and LBP ? TECHNIQUE:? 3 views of the lumbar spine were acquired.? ? COMPARISON:? [facility], CR, XR LUMBAR SPINE 2-3V, 05/27/2020, 14:11. ? FINDINGS:? ? Bones:? 5 [id number] vertebrae are present.? There is normal bony alignment.? Remote L3-L4 fusion.? Fusion hardware intact with no evidence of hardware failure or loosening.? Question subtle superior endplate compression fracture of at L5.? This is not definite.? ? Soft tissues:? Overlying bowel gas pattern is normal.? No suspicious soft tissue calcifications.? ? ? IMPRESSION:? Question L5 superior endplate compression fracture.? Consider CT for verification. ? ? Dictated by: Messi Russell M.D. on 03/31/2022 at 12:57 ? ? Approved by: Messi Russell M.D. on 03/31/2022 at 12:58?? CT-L spine: Radiologist's Impression: [address] [address] [address] Scan Report Signed Patient: Marie Leung MR#: [id number] : 1945 Acct:[id number] Age/Sex: 77 / F Date of Service: 03/31/22 Loc: ED Accession Number: [id number] ?? Procedure: CT lumbar spine wo con Ordering Provider: Madeleine Sy P.A-C PROCEDURE:? CT LUMBAR SPINE WO CON ? INDICATIONS:? eval L spine possible compression Fx on XR ? TECHNIQUE:? Noncontrast 3 mm thick sections acquired from the T12 level to the sacrum.? Sagittal and coronal reformats were constructed.? For radiation dose reduction, the following was used:? automated exposure control.? ? COMPARISON:? [facility], CR, XR LUMBAR SPINE 2-3V, 03/31/2022, 12:30.? [facility], CT, CT LUMBAR SPINE W CON, 01/06/2021, 18:57. ? FINDINGS:? Image quality:? There is artifact associated with the metallic hardware. ? Artifact from the metallic hardware is reduced by metal reconstruction algorithm.? ? Bones:? No acute vertebral body compression fractures.? No suspicious lytic or blastic bony lesions.? No pars defects.? ? Minimal retrolisthesis can be seen at L1-L2.? Minimal anterolisthesis is seen at L3-L4. ? Moderate lower thoracic spine degenerative changes can be seen. ? T11-T12:? Moderate loss of disc height is seen. Vacuum disc phenomenon is seen at this level.? Mild to moderate disc bulge is seen.? There is moderate right-sided and no left-sided neural foraminal narrowing.? No significant central canal narrowing is seen. ? T12-L1:? No significant abnormality is seen. ? L1-L2:? Moderate loss of disc height is seen. Endplate irregularity and sclerosis can be seen.? Vacuum disc phenomenon is seen at this level.? Moderate generalized disc bulge is seen. Moderate facet joint hypertrophy is seen.? There is severe bilateral neural foraminal narrowing seen.? Least moderate central canal narrowing is seen. When comparison is made with the prior images, these findings are similar.? ? L2-L3:? [id number] loss of disc height is seen.? Mac VIII bulge moderate to prominent facet hypertrophy can be seen.? Moderate to severe bilateral neural foraminal narrowing is seen.? No significant central canal narrowing is seen. When comparison is made with the prior images, these findings are similar.? ? L3-L4:? Postoperative change can be seen at this level, with bilateral pedicle screws and vertical fixation rods.? The screws appear well placed.? There is a disc spacer seen at this level.? No findings of hardware failure or hardware loosening are seen. ? At least moderate disc bulge is seen, which is eccentric to the left. Moderate bilateral neural foraminal narrowing is seen.? No significant central canal narrowing is seen.? No significant change from the prior.? ? L4-L5:? The disc height is well preserved.? Moderate generalized disc bulge is seen.? Prominent facet hypertrophy can be seen. There has been removal of portions of the posterior elements.? Bone grafting material is noted.? No significant neural foraminal or central canal narrowing can be seen.? When comparison is made with the prior images, these findings are similar.? ? L5-S1:? The disc height is well preserved. Mild generalized disc bulge is seen.? There has been removal of portions of the posterior elements.? Bone grafting material is noted. ?No neural foraminal narrowing is seen. The central canal is widely patent.? ? Soft tissues:? No retroperitoneal masses or hematomas.? Visualized aorta is normal in caliber.? Atherosclerotic calcification is noted.? This patient is status post hysterectomy. No adnexal masses are seen.? Colonic diverticulosis is seen, without findings of active diverticulitis. ? ? IMPRESSION:? L3-L4 postoperative hardware, which appears intact. ? No acute fractures can be seen. ? Multiple levels of degenerative change are seen, which are similar to 2020. ? Additional findings:? Hysterectomy Diverticulosis, without active diverticulitis ? Dictated by: John Lisa M.D. on 03/31/2022 at 13:20 ? ? Approved by: John Lisa M.D. on 03/31/2022 at 13:25?? [facility] Narrative Medical decision making narrative: Is a 77-year-old female with a history of lumbar spinal fusion, walks with a cane, chronic low back pain and right hip pain with frequent falls presenting with concern for persistent low back pain and right hip pain since she had a fall on Sunday. Exam today was notable for tenderness over her hip and right and mid lumbar region. X-rays obtained for further evaluation possibly concerning for compression fracture and CT scan is obtained for further evaluation which returns negative for new fracture. She does have significant degenerative changes but per radiologist her surgical hardware does appear to be in place. Patient had no concerning new deficits no numbness or tingling no red flag symptoms. Has been using the walker since her fall due to both her slight increase in pain and her concern about her mobility. Will encourage the patient to continue with her regular Tylenol dosing. 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 Will encourage the patient to follow-up with her PCP and surgeon. She states she is actually seeing her surgeon next week. Advising the patient to continue using a walker at home as with her frequent falls and now more recent fall with worsening pain due have concern that she needs the additional stability of a walker. Patient in agreement with the plan, return precautions provided, follow-up plan discussed, all questions answered. <Marisol Mckeon, DO - Last Filed: 04/01/22 08:01> Lab Data Labs: Lab Results 03/31/22 03/31/22 Range/Units 13:35 13:35 WBC 7.3 (4.5-11.0) X10^3/uL RBC 4.39 (4.0-5.2) X10^6/uL Hgb 13.0 (12.0-16.0) g/dL Hct 39.1 (36-46) % MCV 89.2 (80-100) fL MCH 29.7 (26-34) PG MCHC 33.3 (30-36) % RDW 12.7 (11.6-14.8) % Plt Count 236 (150-400) X10^3/uL Neut % (Auto) 65.7 (50-75) % Lymph % (Auto) 23.8 L (25-40) % Yates % (Auto) 6.0 (3-14) % Eos % (Auto) 3.7 (2-4) % Baso % (Auto) 0.8 (0-2) % Neut # (Auto) 4800 (9343-9766) /uL Lymph # (Auto) 1700 (8753-7187) /uL Yates # (Auto) 400 (0-900) /uL Eos # (Auto) 300 (0-450) /uL Baso # (Auto) 100 (0-100) /uL Sodium 139 (137-145) mmol/L Potassium 4.0 (3.4-5.1) mmol/L Chloride 101 (98-107) mmol/L Carbon Dioxide 29 (22-32) mmol/L BUN 16 (7-17) mg/dL Creatinine 0.82 (0.52-1.04) mg/dL Estimated GFR > 60 (>60) mL/min BUN/Creatinine Ratio 19.5 (6-22) Glucose 68 L (80-110) mg/dL Calcium 9.0 (8.4-10.2) mg/dL Total Bilirubin 0.4 (0.2-1.3) mg/dL AST 27 (14-36) IU/L ALT 19 (<35) IU/L Alkaline Phosphatase 113 (38-126) U/L Total Protein 7.0 (6.3-8.2) g/dL Albumin 4.0 (3.5-5.0) g/dL Globulin 3.0 (1.7-4.1) g/dL Albumin/Globulin Ratio 1.3 (1.0-2.8) Discharge Plan Departure Patient Disposition: Home Clinical Impression: Fall from standing, Acute exacerbation of chronic low back pain, Acute pain of right hip Instructions: How to Prevent Falls Activity Restrictions/Additional Instructions: Thank you for letting us be part of your care today in the emergency department. We did do x-rays of your hip and your low back and there was need to do a CT scan for further evaluation as x-ray was not a good enough imaging modality to fully evaluate or spine for potential new injury. Thankfully your CT scan did not show any new fractures and your surgical hardware appears to be in place appropriately. We did check some basic labs on you today and these were looking okay. I do want you to follow-up closely with your primary care provider as well as your surgeon/orthopedic provider. I do want you to continue your regular Tylenol dose. I strongly encourage you to continue using a walker given how frequently fall and the fact that you had a fall recently that was worse than her usual. You may want to talk to her primary care provider or surgeon about physical therapy and whether or not this may be beneficial for you. There is no evidence of an emergent or life threatening illness at this time, but follow up with your doctor in 1-2 days is recommended nonetheless to continue to rule out serious underlying causes of your symptoms. Please call the office for an appointment. Please return to the Emergency Department for any worsening or persistent symptoms. Please take medications as directed. Prescriptions: No Action diltiazem HCl 240 mg capsule,extended release 24 hr 240 mg PO DAILY Prilosec 10 mg susp,delayed release for recon 40 mg PO DAILY methocarbamol 500 mg tablet 500 mg PO Q8H PRN (Reason: muscle spasm) Qty: 20 0RF benzonatate 100 mg capsule 100 mg PO TID PRN (Reason: cough) 7 Days Qty: 21 2RF guaifenesin 100 mg/5 mL liquid 200 mg PO Q4H PRN (Reason: cough) Qty: 1000 0RF cyanocobalamin (vitamin B-12) [Vitamin B-12] 500 MCG tablet 1,000 mcg PO QDAY Qty: 0 VITAMIN D (Vitamin D3) 1,000 unit PO QDAY Qty: 0 albuterol sulfate [Proventil HFA] 90 MCG/PUFF HFA aerosol inhaler 1 puff INH PRN Qty: 8.5 (DME) Respironics Dreamstation Auto BIPAP Qty: 1 Dose Instruction: As directed Label Comments: Pressure: IPAP 19 EPAP 11 DME: [place] Rx Instructions: As directed carvedilol 6.25 mg tablet 6.25 mg PO BID venlafaxine 150 mg capsule,extended release 24hr 150 mg PO DAILY aspirin 81 mg tablet,delayed release (DR/EC) 81 mg PO DAILY levothyroxine [Synthroid] 125 mcg tablet 125 mcg PO DAILY Referrals: Angelica Garvin PA-C [Primary Care Provider] - Stand Alone Forms: Patient Portal/API <Marisol Mckeon DO - Last Filed: 04/01/22 08:01> Cosign ED Attending Francis Attestation: I was immediately available in the department for consultation. Documentation has been reviewed.
--- NOTE | 2022-03-31 13:28 | DI.CT.S_ITS ---
PROCEDURE: CT LUMBAR SPINE WO CON INDICATIONS: eval L spine possible compression Fx on XR TECHNIQUE: Noncontrast 3 mm thick sections acquired from the T12 level to the sacrum. Sagittal and coronal reformats were constructed. For radiation dose reduction, the following was used: automated exposure control. COMPARISON: [facility], CR, XR LUMBAR SPINE 2-3V, 03/31/2022, 12:30. [facility], CT, CT LUMBAR SPINE W CON, 01/06/2021, 18:57. FINDINGS: Image quality: There is artifact associated with the metallic hardware. Artifact from the metallic hardware is reduced by metal reconstruction algorithm. Bones: No acute vertebral body compression fractures. No suspicious lytic or blastic bony lesions. No pars defects. Minimal retrolisthesis can be seen at L1-L2. Minimal anterolisthesis is seen at L3-L4. Moderate lower thoracic spine degenerative changes can be seen. T11-T12: Moderate loss of disc height is seen. Vacuum disc phenomenon is seen at this level. Mild to moderate disc bulge is seen. There is moderate right-sided and no left-sided neural foraminal narrowing. No significant central canal narrowing is seen. T12-L1: No significant abnormality is seen. L1-L2: Moderate loss of disc height is seen. Endplate irregularity and sclerosis can be seen. Vacuum disc phenomenon is seen at this level. Moderate generalized disc bulge is seen. Moderate facet joint hypertrophy is seen. There is severe bilateral neural foraminal narrowing seen. Least moderate central canal narrowing is seen. When comparison is made with the prior images, these findings are similar. L2-L3: Rddh-fe-vrfimlgn loss of disc height is seen. Mac VIII bulge moderate to prominent facet hypertrophy can be seen. Moderate to severe bilateral neural foraminal narrowing is seen. No significant central canal narrowing is seen. When comparison is made with the prior images, these findings are similar. L3-L4: Postoperative change can be seen at this level, with bilateral pedicle screws and vertical fixation rods. The screws appear well placed. There is a disc spacer seen at this level. No findings of hardware failure or hardware loosening are seen. At least moderate disc bulge is seen, which is eccentric to the left. Moderate bilateral neural foraminal narrowing is seen. No significant central canal narrowing is seen. No significant change from the prior. L4-L5: The disc height is well preserved. Moderate generalized disc bulge is seen. Prominent facet hypertrophy can be seen. There has been removal of portions of the posterior elements. Bone grafting material is noted. No significant neural foraminal or central canal narrowing can be seen. When comparison is made with the prior images, these findings are similar. L5-S1: The disc height is well preserved. Mild generalized disc bulge is seen. There has been removal of portions of the posterior elements. Bone grafting material is noted. No neural foraminal narrowing is seen. The central canal is widely patent. Soft tissues: No retroperitoneal masses or hematomas. Visualized aorta is normal in caliber. Atherosclerotic calcification is noted. This patient is status post hysterectomy. No adnexal masses are seen. Colonic diverticulosis is seen, without findings of active diverticulitis. IMPRESSION: L3-L4 postoperative hardware, which appears intact. No acute fractures can be seen. Multiple levels of degenerative change are seen, which are similar to 2020. Additional findings: Hysterectomy Diverticulosis, without active diverticulitis Dictated by: oJhn Lisa M.D. on 03/31/2022 at 13:20 Approved by: John Lisa M.D. on 03/31/2022 at 13:25
[2022-03-31 13:41] LABS: Add Manual Diff / Slide Review NO; Basophils Absolute Auto 100 /uL (0-100); Basophils Percent Auto 0.8 % (0-2); Eosinophils Absolute Auto 300 /uL (0-450); Eosinophils Percent Auto 3.7 % (2-4); Hematocrit 39.1 % (36-46); Lymphocytes Absolute Auto 1700 /uL (1100-4500); Lymphocytes Percent Auto 23.8 % (25-40); Mean Corpuscular HGB Conc 33.3 % (30-36); Mean Corpuscular Hemoglobin 29.7 PG (26-34); Mean Corpuscular Volume 89.2 fL (80-100); Monocytes Absolute Auto 400 /uL (0-900); Neutrophils Absolute Auto 4800 /uL (1500-7000); Neutrophils Percent Auto 65.7 % (50-75); Platelet Count 236 X10^3/uL (150-400); Red Blood Cell Count 4.39 X10^6/uL (4.0-5.2); Red Cell Distribution Width 12.7 % (11.6-14.8); White Blood Cell Count 7.3 X10^3/uL (4.5-11.0)
[2022-03-31] MEDS: ACETAMINOPHEN 325 MG TABLET 975 MG PO (13:41)
[2022-03-31 13:53] LABS: Alanine Aminotransferase 19 IU/L (<35); Albumin Globulin Ratio 1.3 (1.0-2.8); Alkaline Phosphatase 113 U/L (38-126); Aspartate Aminotransferase 27 IU/L (14-36); BUN Creatinine Ratio 19.5 (6-22); Bilirubin Total 0.4 mg/dL (0.2-1.3); Blood Urea Nitrogen 16 mg/dL (7-17); Carbon Dioxide 29 mmol/L (22-32); Chloride 101 mmol/L (98-107); Estimated Glomerular Filt Rate > 60 mL/min (>60); Glucose 68 mg/dL (80-110); HEMOLYSIS < 15 (0-50); Sodium 139 mmol/L (137-145)
[2022-03-31] MEDS: KETOROLAC 30 MG/ML VIAL 15 MG IV (14:47)
== END 2022-03-31 15:22 | disposition home or self-care (01) ==
PROVIDERS: Emergency Provider Student in an Organized Health Care Education/Training Program; PCP Physician Assistant
DX: M54.50 Low back pain, unspecified (principal); M25.551 Pain in right hip; W18.30XA Fall on same level, unspecified, initial encounter
CPT/HCPCS: 36415; 72100; 72131; 73502; 80053; 85025; 96374; 99284; J1885

== ENCOUNTER → 2022-12-01 13:24 | Outpatient (CLI) | payer MEDICARE, OTHER, SELFPAY ==
--- NOTE | 2022-12-01 13:26 | DI.RAD.S_ITS ---
PROCEDURE: XR CHEST 2V INDICATIONS: wheezing x 1 week TECHNIQUE: 2 views of the chest were acquired. COMPARISON: [facility], CR, XR CHEST 2V, 11/21/2021, 11:26. FINDINGS: Surgical changes and devices: None. Lungs and pleura: No pneumothorax or pleural effusion. Chronic appearing diffuse interstitial prominence with mild perihilar airway thickening. Mild hyperaeration. Mediastinum: Mediastinal contours are normal. Heart size is normal. Bones and chest wall: No suspicious bony abnormalities. Soft tissues appear unremarkable. IMPRESSION: Stable appearance of diffuse interstitial prominence compatible with chronic interstitial process. Mild perihilar airway thickening. Findings may represent an infectious or inflammatory bronchitis. No focal consolidation seen. Dictated by: Tone Collado M.D. on 12/01/2022 at 14:42 Approved by: Tone Collado M.D. on 12/01/2022 at 14:45
== END ==
PROVIDERS: PCP Physician Assistant; Referring Provider Physician Assistant; Visit Provider Physician Assistant
DX: R06.2 Wheezing (principal); R91.8 Other nonspecific abnormal finding of lung field
CPT/HCPCS: 71046

== ENCOUNTER → 2022-12-19 16:05 | Outpatient (CLI) | payer MEDICARE, OTHER, SELFPAY ==
--- NOTE | 2022-12-19 | DI.MG.S_ITS ---
BILATERAL DIGITAL SCREENING MAMMOGRAM 3D/2D WITH CAD: 12/19/2022 CLINICAL: Routine screening. Comparison is made to exams dated: 08/17/2021 mammogram, 05/29/2020 mammogram, 12/19/2018 mammogram, and 09/24/2017 mammogram - [facility]. There are scattered areas of fibroglandular density in both breasts (category b / 25%-50% glandular tissue). Current study was also evaluated with a Computer Aided Detection (CAD) system. No significant masses, calcifications, or other findings are seen in either breast. There has been no significant interval change. IMPRESSION: NEGATIVE There is no mammographic evidence of malignancy. A 1 year screening mammogram is recommended. Based on the Tyrer Cuzick model (a risk assessment model) the patient's lifetime risk is 2.2% and her 10 year risk is 0.0%. According to the ACR, ACS, and NCCN guidelines, an annual breast MRI exam along with mammogram is recommended if the patient's lifetime risk is 20% or greater. This exam was interpreted at Station ID: [id number]. NOTE: For mammograms, a report in lay terms will be sent to the patient. Approximately 15% of breast malignancies will not be visualized mammographically. In the management of a palpable breast mass, a negative mammogram must not discourage biopsy of a clinically suspicious lesion. Electronically Signed By: Reed head/yobani:12/20/2022 07:58:31 letter sent: Normal Exam ACR BI-RADS Category 1: Negative [id number]
== END ==
PROVIDERS: PCP Physician Assistant; Referring Provider Physician Assistant; Visit Provider Physician Assistant
DX: Z12.31 Encounter for screening mammogram for malignant neoplasm of breast (principal)
CPT/HCPCS: 77063; 77067

== ENCOUNTER → 2023-06-12 12:58 | Outpatient (CLI) | payer MEDICARE, OTHER, SELFPAY ==
--- NOTE | 2023-06-12 13:00 | DI.RAD.S_ITS ---
PROCEDURE: XR CHEST 2V INDICATIONS: CHRONIC COUGH TECHNIQUE: 2 views of the chest were acquired. COMPARISON: CT, CT CHEST W CON, 11/25/2021, 14:09. [facility], CR, XR CHEST 2V, 12/01/2022, 13:30. FINDINGS: Surgical changes and devices: None. Lungs and pleura: Chronic interstitial prominence, unchanged. No pleural effusions or pneumothorax. Mediastinum: Mediastinal contours are normal. Heart size is normal. Bones and chest wall: No suspicious bony abnormalities. Soft tissues appear unremarkable. IMPRESSION: Stable chronic interstitial prominence. Consider high-resolution chest CT for further evaluation. Dictated by: Nighat Bautista M.D. on 06/12/2023 at 13:35 Approved by: Nighat Bautista M.D. on 06/12/2023 at 13:39
== END ==
PROVIDERS: PCP Physician Assistant; Referring Provider Physician Assistant; Visit Provider Physician Assistant
DX: R05.9 Cough, unspecified (principal)
CPT/HCPCS: 71046

== ENCOUNTER → 2023-06-15 15:53 | Outpatient (CLI) | payer MEDICARE, OTHER, SELFPAY ==
--- NOTE | 2023-06-15 | DI.CT.S_ITS ---
PROCEDURE: CT CHEST HIGH RESOLUTION INDICATIONS: COUGH TECHNIQUE: Noncontrast 1.0 and 5.0 mm thick contiguous axial sections from the pulmonary apex to the posterior costophrenic angles, with 7 mm thick coronal and sagittal MIP reformats. 1 mm thick dynamic expiratory images acquired through the upper, mid, and lower lungs. 1.0 mm thick axial sections acquired from the brennan to the posterior costophrenic angles in the prone end-inspiration position. For radiation dose reduction, the following was used: automated exposure control, adjustment of mA and/or kV according to patient size. COMPARISON: [facility], CT, CT CHEST W CON, 11/25/2021, 14:09. FINDINGS: Image quality: Diagnostic. Lower Neck: No enlarged lymph nodes. Thyroid: Not well seen. Axillae: No enlarged lymph nodes. Chest Wall: Unremarkable. Bones: Severe multilevel prominent bridging anterior endplate osteophytes in the lower thoracic spine. No suspicious bone lesions. Lungs and Pleura: Bilateral irregular peripheral reticulation involving upper and lower lungs. In the lower lungs, there are areas of traction bronchiectasis and trace fibrosis, specifically left posterior costophrenic sulcus with mild intervening ground-glass opacity. A 0.8 cm solid nodule is present in the right middle lobe. No other mass, nodule, acute consolidation or ground-glass opacity. No pleural effusion. There may be scattered areas of air trapping on expiratory images. Heart: Normal heart size without pericardial effusion. Moderate coronary artery calcification. Thoracic Vessels: Mildly enlarged pulmonary artery outflow tract and main pulmonary arteries. Normal aortic contour Mediastinum and Tejla: Borderline AP window lymph node and mildly enlarged precarinal node measuring 1.1 cm. No hilar adenopathy Esophagus: No wall thickening. No hiatal hernia. Upper Abdomen: Visualized upper abdomen solid organs and bowel loops appear normal. IMPRESSION: Fairly stable findings of chronic interstitial lung disease with subpleural fibrosis in upper and lower lungs. This finding is nonspecific and can be seen with hypersensitivity pneumonitis, connective tissue disease, drug reactions and has not shown significant progression since 2021. 8 mm solid right middle lobe lung nodule has not significantly changed in several years, benign. Stable borderline mediastinal adenopathy, presumed reactive. Dictated by: Clarbiel Manuel M.D. on 06/16/2023 at 0:18 Approved by: Claribel Manuel M.D. on 06/16/2023 at 0:33
== END ==
PROVIDERS: PCP Physician Assistant; Referring Provider Physician Assistant; Visit Provider Physician Assistant
DX: J84.9 Interstitial pulmonary disease, unspecified (principal); J84.10 Pulmonary fibrosis, unspecified; R91.1 Solitary pulmonary nodule; R59.0 Localized enlarged lymph nodes
CPT/HCPCS: 71250

== ENCOUNTER → 2023-07-03 10:47 | Outpatient (CLI) | payer MEDICARE, OTHER, SELFPAY ==
[2023-07-03 12:51] LABS: Rheumatoid Factor < 8.6 IU/mL (<12.0)
== END ==
PROVIDERS: PCP Physician Assistant; Referring Provider Internal Medicine Critical Care Medicine; Visit Provider Internal Medicine Critical Care Medicine
DX: J84.9 Interstitial pulmonary disease, unspecified (principal)
CPT/HCPCS: 36415; 82164; 86038; 86331; 86430; 86602; 86606; 86609; 86671

== ENCOUNTER 2023-07-06 10:11 | Emergency (ER) | payer MEDICARE, OTHER, SELFPAY ==
[2023-07-06] VITALS (11 sets, daily range): BP systolic 105–135; BP diastolic 57–73; PULSE 70–93; RESP 15; TEMP 36.7; O2SAT 96–100; BMI 34.7
[2023-07-06 10:33] LABS: Add Manual Diff / Slide Review NO; Basophils Absolute Auto 100 /uL (0-100); Basophils Percent Auto 0.8 % (0-2); Eosinophils Absolute Auto 500 /uL (0-450); Eosinophils Percent Auto 7.3 % (2-4); Hematocrit 37.6 % (36-46); Hemoglobin 12.4 g/dL (12.0-16.0); Lymphocytes Absolute Auto 1800 /uL (1100-4500); Lymphocytes Percent Auto 25.6 % (25-40); Mean Corpuscular HGB Conc 32.9 % (30-36); Mean Corpuscular Hemoglobin 30.1 PG (26-34); Mean Corpuscular Volume 91.4 fL (80-100); Monocytes Absolute Auto 400 /uL (0-900); Monocytes Percent Auto 5.9 % (3-14); Neutrophils Absolute Auto 4200 /uL (1500-7000); Neutrophils Percent Auto 60.4 % (50-75); Platelet Count 231 X10^3/uL (150-400); Red Blood Cell Count 4.12 X10^6/uL (4.0-5.2); Red Cell Distribution Width 13.3 % (11.6-14.8); White Blood Cell Count 6.9 X10^3/uL (4.5-11.0)
[2023-07-06 10:45] LABS: Alanine Aminotransferase 15 IU/L (<35); Albumin 4.1 g/dL (3.5-5.0); Albumin Globulin Ratio 1.5 (1.0-2.8); Alkaline Phosphatase 90 U/L (38-126); Aspartate Aminotransferase 27 IU/L (14-36); Bilirubin Total 0.6 mg/dL (0.2-1.3); Blood Urea Nitrogen 16 mg/dL (7-17); Calcium 8.8 mg/dL (8.4-10.2); Carbon Dioxide 31 mmol/L (22-32); Chloride 102 mmol/L (98-107); Estimated Glomerular Filt Rate > 60 mL/min (>60); Globulin 2.8 g/dL (1.7-4.1); Glucose 87 mg/dL (80-110); HEMOLYSIS < 15 (0-50); Lipase 376 U/L (23-300); Sodium 138 mmol/L (137-145); Total Protein 6.9 g/dL (6.3-8.2)
[2023-07-06 11:02] LABS: Bacteria Urine None Seen; Culture Indicated Urine Cult Not Indicated; Mucus Urine 1+ (Negative); RBC Urine None Seen (0-5/HPF); Squamous Epithelial Cell Urine 1-5 /HPF (0-5/HPF); Transitional Epi Cells Urine 0-1/HPF (0-5/HPF); Urine Volume 10mL (spun); WBC Urine 0-1/HPF (0-5/HPF)
--- NOTE | 2023-07-06 12:04 | ED_ITS ---
HPI - Abdominal Pain General Chief Complaint: Abdominal Pain Stated Complaint: Stomach pain Time Seen by Provider: 07/06/23 11:53 Source: patient Mode of arrival: Ambulatory History of Present Illness HPI narrative: Patient is an 78-year-old female history of hypertension back pain and spasm presenting today with lower abdominal pain ongoing for the last 2 weeks. She denies any change in bowel or bladder habits. No significant back pain. She occasionally feels nauseated. She reports that she lost 40 lb but that she thought was due to shingles. She according to our records she had shingles back in 2021. She sometimes has some right flank pain from an old injury no new injury today. No chest pain no shortness of breath. Related Data Home Medications Medication Instructions Recorded Confirmed VITAMIN D (Vitamin D3) 1,000 unit PO QDAY ##0 09/26/12 07/03/23 albuterol sulfate 90 mcg/actuation 1 puff INH PRN ##8.5 09/26/12 07/03/23 aerosol inhaler (Proventil HFA) cyanocobalamin (vitamin B-12) 500 1,000 mcg PO QDAY ##0 09/26/12 07/03/23 mcg tablet (Vitamin B-12) diltiazem HCl 240 mg capsule,24 240 mg PO DAILY 10/14/17 07/03/23 hr,extended release aspirin 81 mg tablet,delayed 81 mg PO DAILY 08/30/18 07/03/23 release carvedilol 6.25 mg tablet 6.25 mg PO BID 08/30/18 07/03/23 venlafaxine 150 mg 150 mg PO DAILY 08/30/18 07/03/23 capsule,extended release 24 hr RespirEataly Nets [employer] Auto BIPAP #1 ea 09/03/18 07/03/23 levothyroxine 125 mcg tablet 125 mcg PO DAILY 01/10/21 07/03/23 (Synthroid) omeprazole magnesium 10 mg oral 40 mg PO DAILY 01/10/21 07/03/23 suspension,delayed release (Prilosec) Previous Rx's Medication Instructions Recorded methocarbamol 500 mg tablet 500 mg PO Q8H PRN muscle spasm #20 03/05/21 tabs benzonatate 100 mg capsule 100 mg PO TID PRN cough 7 days #21 11/21/21 caps guaifenesin 100 mg/5 mL oral liquid 200 mg (10 mL) PO Q4H PRN cough 11/21/21 #1,000 mL albuterol sulfate 90 mcg/actuation 2 puff inhalation Q4-6H PRN 12/01/22 aerosol inhaler shortness of breath or wheezing #6.7 grams azithromycin 250 mg tablet See Rx Instructions PO .COMPLEX #6 12/01/22 tabs codeine 10 mg-guaifenesin 100 mg/5 5 ml PO Q6H #118 mL 04/28/23 mL oral liquid Allergies Allergy/AdvReac Type Severity Reaction Status Date / Time lisinopril [LISINOPRIL] Allergy Mild ANGIOEDEMA Verified 07/06/23 10:21 Penicillins [PENICILLINS] Allergy Mild RASH Verified 07/06/23 10:21 doxycycline AdvReac GI upset Verified 07/06/23 10:21 Patient History Medical History Shingles Morbid obesity with body mass index (BMI) of 40.0 to 49.9 Recurrent sinus infections Hypertension Anxiety Depression GERD (gastroesophageal reflux disease) Bronchitis Asthma Allergic rhinitis Excessive daytime sleepiness Primary insomnia Restless legs syndrome (RLS) Social History marital status: details: tania Hay, lives in [place] household members: spouse lives independently: Yes caregiver/support person: No housing: house pets and animals: Yes Smoking Status: Former smoker Smoking Status: Former smoker alcohol intake frequency: holidays/special occasions only Substance Use Type: does not use Exam Initial Vital Signs Initial Vital Signs: Vital Signs Temperature 98.0 F 07/06/23 10:12 Pulse Rate 87 07/06/23 10:12 Respiratory Rate 15 07/06/23 10:12 Blood Pressure 129/58 L 07/06/23 10:12 Pulse Oximetry 99 07/06/23 10:12 Oxygen Delivery Method Room Air 07/06/23 10:12 GENERAL: Alert pleasant 78-year-old female and in no acute distress. HEENT: Head atraumatic,EOMI, pupils reactive, face symmetric, moist mucous membranes CARDIOVASCULAR: Regular rate and rhythm without murmurs, rubs or gallops. RESPIRATORY: Breath sounds equal bilaterally, no wheezes rales or rhonchi. ABDOMEN: Soft, minimal lower abdominal tenderness no guarding no rebound no acute abdomen no distention EXTREMITIES: Normal range of motion, no clubbing or edema. Neurovascularly intact NEUROLOGICAL: Alert and oriented x4.Normal gait and speech. SKIN: Warm, dry, no laceration, no petechiae, no rashes or lesions. Course Orders Ordered: ED Orders 07/06/23 10:20 EKG-12 Lead Stat 07/06/23 10:29 Complete Blood Count AUTO DIFF Stat Comprehensive Metabolic Panel Stat Lipase Stat 07/06/23 10:36 Urine Microscopic Stat 07/06/23 12:03 CT abdomen pelvis w con Stat Discontinued Medications Ketorolac Tromethamine (Ketorolac 30 Mg/Ml Vial) 15 mg IV NOW ONE Stop: 07/06/23 12:08 Last Admin: 07/06/23 12:12 Dose: 15 mg Documented By: Ondansetron HCl (Ondansetron 4 Mg/2 Ml Inj) 4 mg IV NOW PRN PRN Reason: Nausea And Vomiting Last Admin: 07/06/23 12:12 Dose: 4 mg Documented By: Vital Signs Vital signs: Vital Signs - 8 hr 07/06/23 10:12 07/06/23 10:18 07/06/23 10:18 Temperature 98.0 F Pulse Rate 87 89 Respiratory Rate 15 Blood Pressure 129/58 L 129/58 L Pulse Oximetry 99 98 Oxygen Delivery Method Room Air 07/06/23 10:32 07/06/23 10:33 07/06/23 10:33 Temperature Pulse Rate 93 H 84 Respiratory Rate Blood Pressure 135/59 L Pulse Oximetry 97 96 Oxygen Delivery Method 07/06/23 11:00 07/06/23 11:00 07/06/23 11:30 Temperature Pulse Rate 71 70 Respiratory Rate Blood Pressure 113/57 L Pulse Oximetry 96 96 Oxygen Delivery Method 07/06/23 11:30 07/06/23 12:00 07/06/23 12:00 Temperature Pulse Rate 79 Respiratory Rate Blood Pressure 117/58 L 105/73 Pulse Oximetry 100 Oxygen Delivery Method 07/06/23 12:30 07/06/23 12:30 07/06/23 13:19 Temperature Pulse Rate 73 77 Respiratory Rate Blood Pressure 118/57 L Pulse Oximetry 99 Oxygen Delivery Method 07/06/23 13:30 07/06/23 13:53 07/06/23 13:53 Temperature Pulse Rate 80 81 Respiratory Rate Blood Pressure 118/60 Pulse Oximetry 99 100 Oxygen Delivery Method MDM - Abdominal Pain Lab Data 07/06/23 10:29 07/06/23 10:29 Labs: Lab Results 07/06/23 07/06/23 Range/Units 10:29 10:36 WBC 6.9 (4.5-11.0) X10^3/uL RBC 4.12 (4.0-5.2) X10^6/uL Hgb 12.4 (12.0-16.0) g/dL Hct 37.6 (36-46) % MCV 91.4 (80-100) fL MCH 30.1 (26-34) PG MCHC 32.9 (30-36) % RDW 13.3 (11.6-14.8) % Plt Count 231 (150-400) X10^3/uL Neut % (Auto) 60.4 (50-75) % Lymph % (Auto) 25.6 (25-40) % [place] % (Auto) 5.9 (3-14) % Eos % (Auto) 7.3 H (2-4) % Baso % (Auto) 0.8 (0-2) % Neut # (Auto) 4200 (7241-1797) /uL Lymph # (Auto) 1800 (2088-7001) /uL [place] # (Auto) 400 (0-900) /uL Eos # (Auto) 500 H (0-450) /uL Baso # (Auto) 100 (0-100) /uL Sodium 138 (137-145) mmol/L Potassium 4.0 (3.4-5.1) mmol/L Chloride 102 (98-107) mmol/L Carbon Dioxide 31 (22-32) mmol/L BUN 16 (7-17) mg/dL Creatinine 0.94 (0.52-1.04) mg/dL Estimated GFR > 60 (>60) mL/min BUN/Creatinine Ratio 17.0 (6-22) Glucose 87 (80-110) mg/dL Calcium 8.8 (8.4-10.2) mg/dL Total Bilirubin 0.6 (0.2-1.3) mg/dL AST 27 (14-36) IU/L ALT 15 (<35) IU/L Alkaline Phosphatase 90 (38-126) U/L Total Protein 6.9 (6.3-8.2) g/dL Albumin 4.1 (3.5-5.0) g/dL Globulin 2.8 (1.7-4.1) g/dL Albumin/Globulin Ratio 1.5 (1.0-2.8) Lipase 376 H (23-300) U/L Urine RBC None seen (0-5/HPF) Urine WBC 0-1/hpf (0-5/HPF) Ur Squamous Epith Cells 1-5 /hpf (0-5/HPF) Ur Transition Epith Cell 0-1/hpf (0-5/HPF) Urine Bacteria None seen (None) Urine Mucus 1+ H (Negative) Ur Culture Indicated? Cult not indicated Vol Urine Centrifuged 10ml (spun) Point of care testing: Urine Dip Bedside Urine Glucose Negative Bedside Urine Bilirubin - Negative Bedside Urine Ketone - Negative Urine Specific Jones 1.025 Bedside Urine Occult Blood - Negative Bedside Urine pH 6.0 Bedside Urine Protein +/- 15 Bedside Urine Urobilinogen - Negative Bedside Urine Nitrite - Negative Bedside Urine Leukocytes - Negative Esterase Imaging Data CT scan - abdomen/pelvis: Radiologist's Impression: PROCEDURE: CT ABDOMEN PELVIS W CON INDICATIONS: lower ab pain x 2 weeks TECHNIQUE: After the administration of intravenous contrast, axial sections acquired from the lung bases to the pubic symphysis. Coronal and sagittal reformats were performed. For radiation dose reduction, the following was used: automated exposure control, adjustment of mA and/or kV according to patient size. COMPARISON: [facility], CT, ABDOMEN/PELVIS WITH CONTRAST, 11/06/2011, 11:07. FINDINGS: Image quality: Diagnostic. Lower Chest: No significant findings. ABDOMEN: Liver: No solid mass. Gallbladder: No radiopaque gallstones or wall thickening. Biliary ducts: No biliary dilation. Pancreas: No ductal dilation. Spleen: Size is within normal limits. Adrenal Glands: No adrenal nodules. Kidneys and Ureters: No hydronephrosis. No solid mass. No complex renal cystic lesion which requires follow up. Stomach and Bowel: Normal colonic caliber, without significant wall thickening. Mild sigmoid diverticulosis without evidence of diverticulitis. Peritoneum: No abnormal intraperitoneal fluid. No free air. Ventral Wall: No significant ventral hernia. Abdominal Nodes: No retroperitoneal or mesenteric adenopathy by size criteria. Vessels: Aorta and inferior vena cava are normal in size. PELVIS: Pelvic Organs: Uterus is surgically absent. Bladder: No bladder wall thickening, accounting for underdistention. Pelvic Nodes: No enlarged lymph nodes. Miscellaneous: No inguinal hernias are seen. Bones: No aggressive osseous abnormality. Remote posterior lateral fusion at L4-L5. Old mild superior endplate compression of L5. IMPRESSION: 1. No acute abdominal process noted. 2. Mild diverticulosis without evidence of diverticulitis. 3. Remote hysterectomy. 4. Old mild L5 compression fracture. Dictated by: Messi Russell M.D. on 07/06/2023 at 13:27 ECG Data Attestation: I personally reviewed and interpreted this ECG as follows: Prior ECG tracings: available for review Interpretation: Normal sinus rhythm rate 76 FL interval [address] changes no T-wave inversions similar to previous EKGs MDM Narrative Medical decision making narrative: Patient 78-year-old female presents today with lower abdominal pain ongoing for last couple of weeks. She reports weight loss but it is a bit confusing about how quickly and she has lost this weight. She has no nausea or vomiting. I do not appreciate any sort of rash on exam mildly tender lower suprapubic pain. Blood work has been reviewed: No leukocytosis or anemia, electrolyte abnormality SHIVA, bilirubin and liver enzymes are within normal limits lipase minimally elevated at 376 but not clinically significant Urinalysis does not show any evidence of infection CT abdomen pelvis do not show any acute abnormality EKG has been reviewed No cause of patient's ongoing abdominal pain. There is no intra-abdominal pathology on the CT blood work is overall reassuring. No evidence of infection. She overall appears comfortable sleeping off and on throughout the ED. At this time recommend supportive care only. Follow-up with PCP. Discharge Plan Departure Patient Disposition: Home Clinical Impression: Abdominal pain Instructions: DI for Abdominal Pain-Adult Activity Restrictions/Additional Instructions: *You have been diagnosed with abdominal pain *What to do: At this time no cause of your abdominal pain is found *Continue to take medications as directed Tylenol or Motrin as needed for pain *Follow up with your primary care provider in 2-3 days or call [phone] *Return to ER if you should have increasing pain nausea vomiting fever [or] any new, worsening or concerning symptoms Prescriptions: No Action diltiazem HCl 240 mg capsule,extended release 24 hr 240 mg PO DAILY Prilosec 10 mg susp,delayed release for recon 40 mg PO DAILY methocarbamol 500 mg tablet 500 mg PO Q8H PRN (Reason: muscle spasm) Qty: 20 0RF benzonatate 100 mg capsule 100 mg PO TID PRN (Reason: cough) 7 Days Qty: 21 2RF guaifenesin 100 mg/5 mL liquid 200 mg PO Q4H PRN (Reason: cough) Qty: 1000 0RF azithromycin 250 mg tablet See Rx Instructions PO .COMPLEX Qty: 6 0RF Rx Instructions: For 250 mg dose pack: take 500 mg today (day 1), then 250 mg for 4 days (days 2-5) PO albuterol sulfate 90 mcg/actuation HFA aerosol inhaler 2 puff inhalation Q4-6H PRN (Reason: shortness of breath or wheezing) Qty: 6.7 0RF codeine-guaifenesin 10-100 mg/5 mL liquid 5 ml PO Q6H Qty: 118 0RF cyanocobalamin (vitamin B-12) [Vitamin B-12] 500 MCG tablet 1,000 mcg PO QDAY Qty: 0 VITAMIN D (Vitamin D3) 1,000 unit PO QDAY Qty: 0 albuterol sulfate [Proventil HFA] 90 MCG/PUFF HFA aerosol inhaler 1 puff INH PRN Qty: 8.5 (DME) [employer]pir[employer]ataly [employer] Auto BIPAP Qty: 1 Dose Instruction: As directed Patient Comments: Pressure: IPAP 19 EPAP 11 DME: [facility] Instructions: As directed carvedilol 6.25 mg tablet 6.25 mg PO BID venlafaxine 150 mg capsule,extended release 24hr 150 mg PO DAILY aspirin 81 mg tablet,delayed release (DR/EC) 81 mg PO DAILY levothyroxine [Synthroid] 125 mcg tablet 125 mcg PO DAILY Referrals: Angelica Garvin PA-C [Primary Care Provider] - Stand Alone Forms: Patient Portal/API
[2023-07-06] MEDS: ONDANSETRON 4 MG/2 ML INJ IV (12:12)
[2023-07-06] MEDS: KETOROLAC 30 MG/ML VIAL 15 MG IV (12:12)
== END 2023-07-06 14:22 | disposition home or self-care (01) ==
PROVIDERS: Emergency Provider Emergency Medicine; PCP Physician Assistant
DX: R10.30 Lower abdominal pain, unspecified (principal); I10 Essential (primary) hypertension; Z87.891 Personal history of nicotine dependence
CPT/HCPCS: 36415; 74177; 80053; 81003; 81015; 83690; 85025; 93005; 96374; 96375; 99284; J1885; J2405; Q9967

== ENCOUNTER → 2023-07-12 11:55 | Outpatient (CLI) | payer MEDICARE, OTHER, SELFPAY | PROVIDERS: PCP Physician Assistant; Referring Provider Internal Medicine Critical Care Medicine; Visit Provider Internal Medicine Critical Care Medicine | DX: R05.9 Cough, unspecified (principal); R94.2 Abnormal results of pulmonary function studies | CPT/HCPCS: 94060; 94726; 94729 ==

== ENCOUNTER 2023-08-09 06:29 | Emergency (ER) | payer MEDICARE, OTHER, SELFPAY ==
[2023-08-09 06:52] VITALS: BP 146/68; PULSE 103; RESP 18; TEMP 36.4; O2SAT 97; BMI 34.0
--- NOTE | 2023-08-09 07:09 | ED_ITS ---
HPI - Back Pain/Injury General Chief Complaint: Back Pain/Injury Stated Complaint: oral meds not taking away pain and having mri toda Time Seen by Provider: 08/09/23 06:35 Source: patient Mode of arrival: Ambulatory History of Present Illness HPI Narrative: Patient is an 78-year-old female. Has a history of lower back pain. Was supposed to have a MRI last week. She went to the facility but had a difficult time lying on the table. She states that it was very uncomfortable for her despite her oral pain medication. She was rescheduled to have another MRI today at another facility. She was here for injectable pain medication because she states her oral medicines are probably not going to work for her in controlling her discomfort. She has no new symptoms. She states Toradol has worked very well for her in the past. Related Data Home Medications Medication Instructions Recorded Confirmed VITAMIN D (Vitamin D3) 1,000 unit PO QDAY ##0 09/26/12 07/03/23 albuterol sulfate 90 mcg/actuation 1 puff INH PRN ##8.5 09/26/12 07/03/23 aerosol inhaler (Proventil HFA) cyanocobalamin (vitamin B-12) 500 1,000 mcg PO QDAY ##0 09/26/12 07/03/23 mcg tablet (Vitamin B-12) diltiazem HCl 240 mg capsule,24 240 mg PO DAILY 10/14/17 07/03/23 hr,extended release aspirin 81 mg tablet,delayed 81 mg PO DAILY 08/30/18 07/03/23 release carvedilol 6.25 mg tablet 6.25 mg PO BID 08/30/18 07/03/23 venlafaxine 150 mg 150 mg PO DAILY 08/30/18 07/03/23 capsule,extended release 24 hr [employer] Auto BIPAP #1 ea 09/03/18 07/03/23 levothyroxine 125 mcg tablet 125 mcg PO DAILY 01/10/21 07/03/23 (Synthroid) omeprazole magnesium 10 mg oral 40 mg PO DAILY 01/10/21 07/03/23 suspension,delayed release (Prilosec) Previous Rx's Medication Instructions Recorded methocarbamol 500 mg tablet 500 mg PO Q8H PRN muscle spasm #20 03/05/21 tabs benzonatate 100 mg capsule 100 mg PO TID PRN cough 7 days #21 11/21/21 caps guaifenesin 100 mg/5 mL oral liquid 200 mg (10 mL) PO Q4H PRN cough 11/21/21 #1,000 mL albuterol sulfate 90 mcg/actuation 2 puff inhalation Q4-6H PRN 12/01/22 aerosol inhaler shortness of breath or wheezing #6.7 grams azithromycin 250 mg tablet See Rx Instructions PO .COMPLEX #6 12/01/22 tabs codeine 10 mg-guaifenesin 100 mg/5 5 ml PO Q6H #118 mL 04/28/23 mL oral liquid Allergies Allergy/AdvReac Type Severity Reaction Status Date / Time lisinopril [LISINOPRIL] Allergy Mild ANGIOEDEMA Verified 07/17/23 12:51 Penicillins [PENICILLINS] Allergy Mild RASH Verified 07/17/23 12:51 doxycycline AdvReac GI upset Verified 07/17/23 12:51 Review of Systems Musculoskeletal Musculoskeletal: Reports system reviewed and no additional complaints, except as documented Integumentary/Breasts Skin/Breast: Reports system reviewed and no additional complaints, except as documented Neurologic Neurologic: Reports system reviewed and no additional complaints, except as documented Patient History Medical History Shingles Morbid obesity with body mass index (BMI) of 40.0 to 49.9 Recurrent sinus infections Hypertension Anxiety Depression GERD (gastroesophageal reflux disease) Bronchitis Asthma Allergic rhinitis Excessive daytime sleepiness Primary insomnia Restless legs syndrome (RLS) Social History marital status: details: tania Hay, lives in [place] household members: spouse lives independently: Yes caregiver/support person: No housing: house pets and animals: Yes Smoking Status: Former smoker Smoking Status: Former smoker alcohol intake frequency: holidays/special occasions only Substance Use Type: does not use Exam Initial Vital Signs Initial Vital Signs: Vital Signs Temperature 97.5 F L 08/09/23 06:52 Pulse Rate 103 H 08/09/23 06:52 Respiratory Rate 18 08/09/23 06:52 Blood Pressure 146/68 H 08/09/23 06:52 Pulse Oximetry 97 08/09/23 06:52 Oxygen Delivery Method Room Air 08/09/23 06:52 [facility] Head: normal to inspection and normocephalic Resp Effort & Inspection: normal respiratory effort Cardio Rate: regular rate Neuro General: patient alert, patient awake and moves all extremities Course Orders Ordered: Discontinued Medications Hydromorphone HCl (Hydromorphone 1 Mg Inj) 1 mg IM NOW ONE Stop: 08/09/23 07:09 Ketorolac Tromethamine (Ketorolac 30 Mg/Ml Vial) 30 mg IM NOW ONE Stop: 08/09/23 07:09 Vital Signs Vital signs: Vital Signs - 8 hr 08/09/23 06:52 Temperature 97.5 F L Pulse Rate 103 H Respiratory Rate 18 Blood Pressure 146/68 H Pulse Oximetry 97 Oxygen Delivery Method Room Air MDM - Back Pain/Injury MDM Narrative Medical decision making narrative: Patient has no new symptoms. Her current symptoms are worsening and she was scheduled for an MRI later today. No indication for radiologic studies here in the ER. She was given a dose of Toradol and also Dilaudid. She has a MRI scheduled for 4 hours from now. She will present to that MRI for further evaluation. He expressed understanding and agreement with plan. Discharge Plan Departure Patient Disposition: Home Clinical Impression: Low back pain Instructions: DI for Low Back Pain Activity Restrictions/Additional Instructions: You need to take all of your medications as directed. I do recommend that you keep your scheduled appointment for your MRI later this morning. Return to the emergency department for new symptoms. Prescriptions: No Action diltiazem HCl 240 mg capsule,extended release 24 hr 240 mg PO DAILY Prilosec 10 mg susp,delayed release for recon 40 mg PO DAILY methocarbamol 500 mg tablet 500 mg PO Q8H PRN (Reason: muscle spasm) Qty: 20 0RF benzonatate 100 mg capsule 100 mg PO TID PRN (Reason: cough) 7 Days Qty: 21 2RF guaifenesin 100 mg/5 mL liquid 200 mg PO Q4H PRN (Reason: cough) Qty: 1000 0RF azithromycin 250 mg tablet See Rx Instructions PO .COMPLEX Qty: 6 0RF Rx Instructions: For 250 mg dose pack: take 500 mg today (day 1), then 250 mg for 4 days (days 2-5) PO albuterol sulfate 90 mcg/actuation HFA aerosol inhaler 2 puff inhalation Q4-6H PRN (Reason: shortness of breath or wheezing) Qty: 6.7 0RF codeine-guaifenesin 10-100 mg/5 mL liquid 5 ml PO Q6H Qty: 118 0RF cyanocobalamin (vitamin B-12) [Vitamin B-12] 500 MCG tablet 1,000 mcg PO QDAY Qty: 0 VITAMIN D (Vitamin D3) 1,000 unit PO QDAY Qty: 0 albuterol sulfate [Proventil HFA] 90 MCG/PUFF HFA aerosol inhaler 1 puff INH PRN Qty: 8.5 (DME) Respironics Dreamstation Auto BIPAP Qty: 1 Dose Instruction: As directed Patient Comments: Pressure: IPAP 19 EPAP 11 DME: [place] Rx Instructions: As directed carvedilol 6.25 mg tablet 6.25 mg PO BID venlafaxine 150 mg capsule,extended release 24hr 150 mg PO DAILY aspirin 81 mg tablet,delayed release (DR/EC) 81 mg PO DAILY levothyroxine [Synthroid] 125 mcg tablet 125 mcg PO DAILY Referrals: Angelica Garvin PA-C [Primary Care Provider] - Stand Alone Forms: Patient Portal/API
[2023-08-09] MEDS: KETOROLAC 30 MG/ML VIAL IM (07:20)
[2023-08-09] MEDS: HYDROMORPHONE 1 MG INJ IM (07:20)
[2023-08-09 07:38] VITALS: BP 135/63; PULSE 93; RESP 20; O2SAT 99
== END 2023-08-09 07:51 | disposition home or self-care (01) ==
PROVIDERS: Emergency Provider Emergency Medicine; PCP Physician Assistant
DX: M54.50 Low back pain, unspecified (principal)
CPT/HCPCS: 96372; 99283; J1170; J1885

== ENCOUNTER 2023-11-15 11:41 | Emergency (ER) | payer MEDICARE, OTHER, SELFPAY ==
[2023-11-15 11:45] VITALS: BP 118/64; PULSE 77; RESP 18; TEMP 37.1; O2SAT 100; BMI 35.9
--- NOTE | 2023-11-15 12:12 | PC.NURSE ---
patient had mutiple back surgeries in the past. has back pain on right side that radiates to her right [place] area. woke up with pain today but otherwise has been feeling well and improving. She also states that she has been having foul smelling odor when she urinates. She was tested recently and her urine did not show signs of infection.
[2023-11-15 12:21] LABS: Appearance Urine UA CLEAR; Bilirubin Urine UA NEGATIVE (NEGATIVE); Color Urine UA YELLOW; Glucose Urine UA NEGATIVE (Negative); Ketones Urine UA NEGATIVE (NEGATIVE); Leukocyte Esterase Urine UA TRACE (NEGATIVE); Nitrite Urine UA NEGATIVE (Negative); Occult Blood Urine UA NEGATIVE (Negative); Protein Urine UA NEGATIVE (Negative); Urobilinogen Urine UA 0.2 E.U./dL (0.2)
[2023-11-15 12:34] LABS: pH Urine UA 6.5 (4.5-8.0)
[2023-11-15 12:35] LABS: Bacteria Urine Occasional (0-1); Culture Indicated Urine Cult Not Indicated; RBC Urine 1-5/HPF (0-5/HPF); Squamous Epithelial Cell Urine 1-5 /HPF (0-5/HPF); Urine Volume 10mL (spun); WBC Urine 1-5/HPF (0-5/HPF)
--- NOTE | 2023-11-15 13:07 | ED_ITS ---
<Statement entered by Pelon Edward DO - 11/15/23 13:27> Dr. Edward: I was immediately available in the department for consultation. Documentation has been reviewed. I agree with assessment and plan. 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 She has had 4 previous L-spine/low back surgeries in the past. She woke up this morning at approximately 3:00 a.m. with right-sided low back pain. She denies saddle anesthesia as well as bowel or bladder incontinence. She also denies recent trauma, falls or illness. Patient denies night sweats, fever, chills, chest pain or shortness of breath. The patient states that this feels like her usual exacerbation of her low back pain. She denies flank pain or gross hematuria. There has been also no increased urinary frequency or dysuria. She did not contact her painter ordnance this morning for her low back pain. She has required epidurals in the past. She has a longstanding history of sacroiliitis/SI joint dysfunction and low back pain. Related Data Home Medications Medication Instructions Recorded Confirmed VITAMIN D (Vitamin D3) 1,000 unit PO QDAY ##0 09/26/12 07/03/23 albuterol sulfate 90 mcg/actuation 1 puff INH PRN ##8.5 09/26/12 07/03/23 aerosol inhaler (Proventil HFA) cyanocobalamin (vitamin B-12) 500 1,000 mcg PO QDAY ##0 09/26/12 07/03/23 mcg tablet (Vitamin B-12) diltiazem HCl 240 mg capsule,24 240 mg PO DAILY 10/14/17 07/03/23 hr,extended release aspirin 81 mg tablet,delayed 81 mg PO DAILY 08/30/18 07/03/23 release carvedilol 6.25 mg tablet 6.25 mg PO BID 08/30/18 07/03/23 venlafaxine 150 mg 150 mg PO DAILY 08/30/18 07/03/23 capsule,extended release 24 hr [employer] Auto BIPAP #1 ea 09/03/18 07/03/23 levothyroxine 125 mcg tablet 125 mcg PO DAILY 01/10/21 07/03/23 (Synthroid) omeprazole magnesium 10 mg oral 40 mg PO DAILY 01/10/21 07/03/23 suspension,delayed release (Prilosec) Previous Rx's Medication Instructions Recorded methocarbamol 500 mg tablet 500 mg PO Q8H PRN muscle spasm #20 03/05/21 tabs benzonatate 100 mg capsule 100 mg PO TID PRN cough 7 days #21 11/21/21 caps guaifenesin 100 mg/5 mL oral liquid 200 mg (10 mL) PO Q4H PRN cough 11/21/21 #1,000 mL albuterol sulfate 90 mcg/actuation 2 puff inhalation Q4-6H PRN 12/01/22 aerosol inhaler shortness of breath or wheezing #6.7 grams azithromycin 250 mg tablet See Rx Instructions PO .COMPLEX #6 12/01/22 tabs codeine 10 mg-guaifenesin 100 mg/5 5 ml PO Q6H #118 mL 04/28/23 mL oral liquid tizanidine 2 mg tablet 2 mg PO Q8H PRN muscle spasticity 11/15/23 #20 tabs Allergies Allergy/AdvReac Type Severity Reaction Status Date / Time lisinopril [LISINOPRIL] Allergy Mild ANGIOEDEMA Verified 07/17/23 12:51 Penicillins [PENICILLINS] Allergy Mild RASH Verified 07/17/23 12:51 doxycycline AdvReac GI upset Verified 07/17/23 12:51 Review of Systems Review of Systems Narrative: General: See HPI MSK: See HPI All other review of systems have been reviewed and ultimately negative unless otherwise stated in the HPI Patient History Medical History Shingles Morbid obesity with body mass index (BMI) of 40.0 to 49.9 Recurrent sinus infections Hypertension Anxiety Depression GERD (gastroesophageal reflux disease) Bronchitis Asthma Allergic rhinitis Excessive daytime sleepiness Primary insomnia Restless legs syndrome (RLS) Social History marital status: details: tania Hay, lives in [place] household members: spouse lives independently: Yes caregiver/support person: No housing: house pets and animals: Yes Smoking Status: Former smoker Smoking Status: Former smoker alcohol intake frequency: 0-2 drinks per day Substance Use Type: does not use Exam Initial Vital Signs Initial Vital Signs: Vital Signs Temperature 98.8 F 11/15/23 11:45 Pulse Rate 77 11/15/23 11:45 Respiratory Rate 18 11/15/23 11:45 Blood Pressure 118/64 11/15/23 11:45 Pulse Oximetry 100 11/15/23 11:45 Oxygen Delivery Method Room Air 11/15/23 11:45 Const General: cooperative, healthy appearing, comfortable, well developed and well groomed [facility] Head: normal to inspection, normocephalic and atraumatic Eyes General: Yes appearance normal, both eyes and all related structures Neck Neck: normal visual inspection, full ROM and no meningeal signs Resp Effort & Inspection: normal respiratory effort and able to speak in complete sentences Cardio Rate: regular rate Rhythm: regular rhythm Back/Spine/Pelvis Other: Patient has tenderness to palpation over the right paralumbar region at L4-5 with spasm. There is also tenderness to palpation over the right SI joint. No step-offs noted. Neurovascular distally intact. Skin General: no rashes or lesions noted, elasticity normal and turgor normal Neuro General: patient alert, patient awake, patient oriented x3, oriented (+ 2 DTRs at the patella and Achilles bilaterally) and moves all extremities Extrem General: normal to inspection, full ROM and capillary refill normal Psych Appearance: grossly normal and well kempt Course Course Course Narrative: Patient was seen and examined. A urinalysis was provided by the patient and sent to the lab for further evaluation. This did not reveal any evidence of a UTI. In the absence of trauma, I do not believe the patient requires any additional imaging. Patient was notified of the findings and then she was prepped for discharge home. Orders Ordered: ED Orders 11/15/23 12:09 Urinalysis and Microscopic Stat Discontinued Medications Ketorolac Tromethamine (Ketorolac 30 Mg/Ml Vial) 15 mg IM NOW ONE Stop: 11/15/23 13:07 Vital Signs Vital signs: Vital Signs - 8 hr 11/15/23 11:45 Temperature 98.8 F Pulse Rate 77 Respiratory Rate 18 Blood Pressure 118/64 Pulse Oximetry 100 Oxygen Delivery Method Room Air MDM - Back Pain/Injury Differential Diagnosis Differential diagnosis: Likely lumbar radiculopathy, sciatica, strain of lumbar region, renal colic, pyelonephritis and other Medical Records Attestation: I reviewed the patient's medical records. Lab Data Attestation: I reviewed the patient's lab results. Labs: Lab Results 11/15/23 Range/Units 12:12 Urine Color Yellow Urine Appearance Clear Urine pH 6.5 (4.5-8.0) Ur Specific [place] 1.010 (1.000-1.035) Urine Protein Negative (Negative) Urine Glucose (UA) Negative (Negative) g/dL Urine Ketones Negative (NEGATIVE) Urine Occult Blood Negative (Negative) Urine Nitrate Negative (Negative) Urine Bilirubin Negative (NEGATIVE) Urine Urobilinogen 0.2 (0.2) E.U./dL Ur Leukocyte Esterase Trace H (NEGATIVE) Urine RBC 1-5/hpf (0-5/HPF) Urine WBC 1-5/hpf (0-5/HPF) Ur Squamous Epith Cells 1-5 /hpf (0-5/HPF) Urine Bacteria Occasional (0-1) (None) Ur Culture Indicated? Cult not indicated Vol Urine Centrifuged 10ml (spun) MDM Narrative Medical decision making narrative: This patient is an 78-year-old female that has had 4 previous L-spine related surgeries and also has a history of sacroiliitis/dysfunction. She is under the care of pain management at this time. She has had multiple epidurals performed which provided temporary relief. She woke up this morning at approximately 3:00 a.m. with right-sided low back pain. She denied saddle anesthesia as well as bowel or bladder incontinence or gross hematuria. I do not think this is diskitis or cauda equina syndrome. Her UA does not reveal evidence of a UTI therefore, I do not believe this is pyelonephritis or nephrolithiasis in the absence of hematuria. The patient received low-dose ketorolac prior to discharge and I will change the patient from methocarbamol to tizanidine. Patient understands the treatment plan. There are no additional questions at the time of discharge and she will follow up as required. Discharge Plan Departure Patient Disposition: Home Clinical Impression: Sacroiliac dysfunction Acute lumbar myofascial strain Qualifiers: Encounter type: initial encounter Qualified Code(s): S39.012A - Strain of muscle, fascia and tendon of lower back, initial encounter Instructions: DI for Back Strain or Sprain Activity Restrictions/Additional Instructions: Apply moist heat to the affected area 10 minutes at a time, 5 times a day Stretching the low back as tolerated Discontinue methocarbamol for now Start the new muscle relaxer and today as prescribed and take up to 3 times a day as needed Follow-up your PCP or painter ordnance within the next 3-5 days Return here for any new emergent or worsening conditions Prescriptions: New tizanidine 2 mg tablet 2 mg PO Q8H PRN (Reason: muscle spasticity) Qty: 20 0RF No Action diltiazem HCl 240 mg capsule,extended release 24 hr 240 mg PO DAILY Prilosec 10 mg susp,delayed release for recon 40 mg PO DAILY methocarbamol 500 mg tablet 500 mg PO Q8H PRN (Reason: muscle spasm) Qty: 20 0RF benzonatate 100 mg capsule 100 mg PO TID PRN (Reason: cough) 7 Days Qty: 21 2RF guaifenesin 100 mg/5 mL liquid 200 mg PO Q4H PRN (Reason: cough) Qty: 1000 0RF azithromycin 250 mg tablet See Rx Instructions PO .COMPLEX Qty: 6 0RF Rx Instructions: For 250 mg dose pack: take 500 mg today (day 1), then 250 mg for 4 days (days 2-5) PO albuterol sulfate 90 mcg/actuation HFA aerosol inhaler 2 puff inhalation Q4-6H PRN (Reason: shortness of breath or wheezing) Qty: 6.7 0RF codeine-guaifenesin 10-100 mg/5 mL liquid 5 ml PO Q6H Qty: 118 0RF cyanocobalamin (vitamin B-12) [Vitamin B-12] 500 MCG tablet 1,000 mcg PO QDAY Qty: 0 VITAMIN D (Vitamin D3) 1,000 unit PO QDAY Qty: 0 albuterol sulfate [Proventil HFA] 90 MCG/PUFF HFA aerosol inhaler 1 puff INH PRN Qty: 8.5 (DME) Respironics Dreamstation Auto BIPAP Qty: 1 Dose Instruction: As directed Patient Comments: Pressure: IPAP 19 EPAP 11 DME: [place] Rx Instructions: As directed carvedilol 6.25 mg tablet 6.25 mg PO BID venlafaxine 150 mg capsule,extended release 24hr 150 mg PO DAILY aspirin 81 mg tablet,delayed release (DR/EC) 81 mg PO DAILY levothyroxine [Synthroid] 125 mcg tablet 125 mcg PO DAILY Referrals: Angelica Garvin PA-C [Primary Care Provider] - Stand Alone Forms: Patient Portal/API
[2023-11-15] MEDS: KETOROLAC 30 MG/ML VIAL 15 MG IM (13:10)
[2023-11-15 13:20] VITALS: BP 127/71; PULSE 71; RESP 14; O2SAT 99
== END 2023-11-15 13:22 | disposition home or self-care (01) ==
PROVIDERS: Emergency Provider Physician Assistant; PCP Physician Assistant
DX: S39.012A Strain of muscle, fascia and tendon of lower back, initial encounter (principal); M53.3 Sacrococcygeal disorders, not elsewhere classified; Z79.899 Other long term (current) drug therapy
CPT/HCPCS: 81001; 96372; 99283; J1885

== ENCOUNTER 2023-12-03 17:42 | Emergency (ER) | payer MEDICARE, OTHER, SELFPAY ==
[2023-12-03 17:50] VITALS: BP 149/63; PULSE 81; RESP 20; TEMP 36.6; O2SAT 97; BMI 35.5
--- NOTE | 2023-12-03 17:54 | EKG_ITS ---
[place] [id number] [address] [place] [id number] Test Date: 2023-12-03 Pat Name: Marie Leung Department: Room: Gender: Female Wheel Loader Operator: GALINA : 1945 Requested By: Order Number: [id number] Reading MD: Darell Leahy Measurements Intervals [place] Rate: 81 P: 39 ID: [id number] QRS: 8 QRSD: 94 T: 59 QT: 400 QTc: 464 Interpretive Statements Normal sinus rhythm Minimal voltage criteria for LVH, may be normal variant ( R in aVL ) Electronically Signed On 12-04-2023 8:36:04 PDT by Darell Leahy
--- NOTE | 2023-12-03 17:58 | DI.RAD.S_ITS ---
PROCEDURE: XR CHEST 1V INDICATIONS: chest pain TECHNIQUE: One view of the chest was acquired. COMPARISON: [facility], CR, XR CHEST 2V, 06/12/2023, 12:59. [facility], CR, XR CHEST 2V, 12/01/2022, 13:30. FINDINGS: Surgical changes and devices: None. Lungs and pleura: Stable chronic interstitial prominence. No new focal pulmonary consolidations. No pleural effusions or pneumothorax. Mediastinum: Mediastinal contours appear normal. Heart size is normal. Bones and chest wall: No suspicious bony lesions. Overlying soft tissues appear unremarkable. IMPRESSION: Stable chronic interstitial prominence, consistent fibrotic changes. No new focal pulmonary consolidations. Dictated by: Linwodo Camargo M.D. on 12/03/2023 at 18:25 Approved by: Linwood Camargo M.D. on 12/03/2023 at 18:26
[2023-12-03 18:16] LABS: Add Manual Diff / Slide Review NO; Basophils Absolute Auto 0 /uL (0-100); Basophils Percent Auto 0.7 % (0-2); Eosinophils Absolute Auto 200 /uL (0-450); Eosinophils Percent Auto 3.7 % (2-4); Hematocrit 37.4 % (36-46); Hemoglobin 12.4 g/dL (12.0-16.0); Lymphocytes Absolute Auto 2200 /uL (1100-4500); Lymphocytes Percent Auto 32.6 % (25-40); Mean Corpuscular HGB Conc 33.1 % (30-36); Mean Corpuscular Hemoglobin 30.7 PG (26-34); Mean Corpuscular Volume 92.9 fL (80-100); Monocytes Absolute Auto 500 /uL (0-900); Monocytes Percent Auto 7.4 % (3-14); Neutrophils Absolute Auto 3700 /uL (1500-7000); Neutrophils Percent Auto 55.6 % (50-75); Platelet Count 253 X10^3/uL (150-400); Red Blood Cell Count 4.02 X10^6/uL (4.0-5.2); Red Cell Distribution Width 12.5 % (11.6-14.8); White Blood Cell Count 6.6 X10^3/uL (4.5-11.0)
[2023-12-03 18:22] LABS: INR 0.9 (0.9-1.3); Prothrombin Time 10.3 SECONDS (9.4-12.5)
[2023-12-03 18:24] LABS: PTT Partial Thromboplastin Tim 33 SECONDS (25.1-36.5)
[2023-12-03 18:34] LABS: Alanine Aminotransferase 13 IU/L (<35); Albumin 3.8 g/dL (3.5-5.0); Albumin Globulin Ratio 1.5 (1.0-2.8); Alkaline Phosphatase 82 U/L (38-126); Aspartate Aminotransferase 22 IU/L (14-36); BUN Creatinine Ratio 10.6 (6-22); Bilirubin Total 0.3 mg/dL (0.2-1.3); Blood Urea Nitrogen 10 mg/dL (7-17); Calcium 9.1 mg/dL (8.4-10.2); Carbon Dioxide 29 mmol/L (22-32); Chloride 105 mmol/L (98-107); Creatine Kinase 40 U/L (30-135); Estimated Glomerular Filt Rate > 60 mL/min (>60); Globulin 2.6 g/dL (1.7-4.1); Glucose 102 mg/dL (80-110); HEMOLYSIS < 15 (0-50); Lipase 65 U/L (23-300); Potassium 3.6 mmol/L (3.4-5.1); Sodium 138 mmol/L (137-145); Total Protein 6.4 g/dL (6.3-8.2)
[2023-12-03 18:45] LABS: NT-proBNP (BNP-Adult 18+) 60 pg/mL (<450); Troponin I < 0.012 ng/mL (0.01-0.034)
[2023-12-03 18:52] VITALS: PULSE 86; RESP 26; O2SAT 99
[2023-12-03 19:00] VITALS: BP 124/59; PULSE 86; RESP 36; O2SAT 98
[2023-12-03 19:30] VITALS: BP 133/60; PULSE 76; RESP 25; O2SAT 97
--- NOTE | 2023-12-03 19:58 | ED_ITS ---
HPI - Chest Pain General Chief Complaint: Chest Pain Stated Complaint: chest discomfort Time Seen by Provider: 12/03/23 18:06 Source: patient Mode of arrival: Ambulatory Limitations: no limitations History of Present Illness HPI narrative: Patient is an 78-year-old female is here for evaluation of several days of progressively worsening back discomfort that she states is now radiating into the front of her chest. She has a history of costochondritis. States the discomfort that she was having now is reproducible. No shortness of breath. No fevers. No cough. No abdominal pain. No skin changes over the area. She did recently have some injections in her back that have not really helped all that much. She was scheduled to see another orthopedic provider to have more injections performed. Pain in her back is baseline for her. Related Data Home Medications Medication Instructions Recorded Confirmed VITAMIN D (Vitamin D3) 1,000 unit PO QDAY ##0 09/26/12 07/03/23 albuterol sulfate 90 mcg/actuation 1 puff INH PRN ##8.5 09/26/12 07/03/23 aerosol inhaler (Proventil HFA) cyanocobalamin (vitamin B-12) 500 1,000 mcg PO QDAY ##0 09/26/12 07/03/23 mcg tablet (Vitamin B-12) diltiazem HCl 240 mg capsule,24 240 mg PO DAILY 10/14/17 07/03/23 hr,extended release aspirin 81 mg tablet,delayed 81 mg PO DAILY 08/30/18 07/03/23 release carvedilol 6.25 mg tablet 6.25 mg PO BID 08/30/18 07/03/23 venlafaxine 150 mg 150 mg PO DAILY 08/30/18 07/03/23 capsule,extended release 24 hr [place] [place] [employer] B[facility] #1 ea 09/03/18 07/03/23 levothyroxine 125 mcg tablet 125 mcg PO DAILY 01/10/21 07/03/23 (Synthroid) omeprazole magnesium 10 mg oral 40 mg PO DAILY 01/10/21 07/03/23 suspension,delayed release (Prilosec) Previous Rx's Medication Instructions Recorded methocarbamol 500 mg tablet 500 mg PO Q8H PRN muscle spasm #20 03/05/21 tabs benzonatate 100 mg capsule 100 mg PO TID PRN cough 7 days #21 11/21/21 caps guaifenesin 100 mg/5 mL oral liquid 200 mg (10 mL) PO Q4H PRN cough 11/21/21 #1,000 mL albuterol sulfate 90 mcg/actuation 2 puff inhalation Q4-6H PRN 12/01/22 aerosol inhaler shortness of breath or wheezing #6.7 grams azithromycin 250 mg tablet See Rx Instructions PO .COMPLEX #6 12/01/22 tabs codeine 10 mg-guaifenesin 100 mg/5 5 ml PO Q6H #118 mL 04/28/23 mL oral liquid tizanidine 2 mg tablet 2 mg PO Q8H PRN muscle spasticity 11/15/23 #20 tabs tramadol 50 mg tablet 50 mg PO Q8H PRN pain #10 tabs 12/03/23 Allergies Allergy/AdvReac Type Severity Reaction Status Date / Time lisinopril [LISINOPRIL] Allergy Mild ANGIOEDEMA Verified 07/17/23 12:51 Penicillins [PENICILLINS] Allergy Mild RASH Verified 07/17/23 12:51 doxycycline AdvReac GI upset Verified 07/17/23 12:51 Review of Systems Review of Systems ROS Unobtainable: All systems reviewed & are unremarkable except as noted in HPI and below Patient History Medical History Shingles Morbid obesity with body mass index (BMI) of 40.0 to 49.9 Recurrent sinus infections Hypertension Anxiety Depression GERD (gastroesophageal reflux disease) Bronchitis Asthma Allergic rhinitis Excessive daytime sleepiness Primary insomnia Restless legs syndrome (RLS) Social History marital status: details: tania Hay, lives in [place] household members: spouse lives independently: Yes caregiver/support person: No housing: house pets and animals: Yes Smoking Status: Former smoker Smoking Status: Former smoker alcohol intake frequency: 0-2 drinks per day Substance Use Type: does not use Exam Initial Vital Signs Initial Vital Signs: Vital Signs Temperature 97.8 F 12/03/23 17:50 Pulse Rate 81 12/03/23 17:50 Respiratory Rate 20 12/03/23 17:50 Blood Pressure 149/63 H 12/03/23 17:50 Pulse Oximetry 97 12/03/23 17:50 Oxygen Delivery Method Room Air 12/03/23 17:50 Const General: cooperative, comfortable and No ill appearing [facility] Head: normal to inspection and normocephalic Chest Chest: No crepitus and tenderness Resp Effort & Inspection: normal respiratory effort Auscultation: clear to auscultation bilaterally Cardio Rate: regular rate Rhythm: regular rhythm Skin General: no rashes or lesions noted Neuro General: patient alert, patient awake, patient oriented x3 and moves all extremities Extrem General: No edema Course Orders Ordered: ED Orders 12/03/23 17:58 XR chest 1V Stat EKG-12 Lead Stat 12/03/23 18:03 Complete Blood Count AUTO DIFF Stat Comprehensive Metabolic Panel Stat Lipase Stat Magnesium Stat NT-proBNP (BNP-Adult 18+) Stat PTT Partial Thromboplastin Brennen Stat Prothrombin Time INR Stat Troponin & CK Cardiac Panel Stat Discontinued Medications Aspirin (Aspirin 81 Mg Chew Tab) 324 mg PO NOW ONE Stop: 12/03/23 17:59 Ketorolac Tromethamine (Ketorolac 30 Mg/Ml Vial) 15 mg IV NOW ONE Stop: 12/03/23 19:59 Last Admin: 12/03/23 20:02 Dose: 15 mg Documented By: NELL Vital Signs Vital signs: Vital Signs - 8 hr 12/03/23 17:50 12/03/23 18:52 12/03/23 19:00 Temperature 97.8 F Pulse Rate 81 86 Respiratory Rate 20 26 H Blood Pressure 149/63 H 124/59 L Pulse Oximetry 97 99 Oxygen Delivery Method Room Air 12/03/23 19:00 12/03/23 19:30 12/03/23 19:30 Temperature Pulse Rate 86 76 Respiratory Rate 36 H 25 H Blood Pressure 133/60 Pulse Oximetry 98 97 Oxygen Delivery Method 12/03/23 20:00 12/03/23 20:00 Temperature Pulse Rate 79 Respiratory Rate 22 Blood Pressure 131/63 Pulse Oximetry 98 Oxygen Delivery Method MDM - Chest Pain Lab Data Attestation: I reviewed the patient's lab results. 12/03/23 18:03 12/03/23 18:03 Labs: Lab Results 12/03/23 Range/Units 18:03 WBC 6.6 (4.5-11.0) X10^3/uL RBC 4.02 (4.0-5.2) X10^6/uL Hgb 12.4 (12.0-16.0) g/dL Hct 37.4 (36-46) % MCV 92.9 (80-100) fL MCH 30.7 (26-34) PG MCHC 33.1 (30-36) % RDW 12.5 (11.6-14.8) % Plt Count 253 (150-400) X10^3/uL Neut % (Auto) 55.6 (50-75) % Lymph % (Auto) 32.6 (25-40) % [place] % (Auto) 7.4 (3-14) % Eos % (Auto) 3.7 (2-4) % Baso % (Auto) 0.7 (0-2) % Neut # (Auto) 3700 (1323-1299) /uL Lymph # (Auto) 2200 (4871-8341) /uL [place] # (Auto) 500 (0-900) /uL Eos # (Auto) 200 (0-450) /uL Baso # (Auto) 0 (0-100) /uL PT 10.3 (9.4-12.5) SECONDS INR 0.9 (0.9-1.3) APTT 33 (25.1-36.5) SECONDS Sodium 138 (137-145) mmol/L Potassium 3.6 (3.4-5.1) mmol/L Chloride 105 (98-107) mmol/L Carbon Dioxide 29 (22-32) mmol/L BUN 10 (7-17) mg/dL Creatinine 0.94 (0.52-1.04) mg/dL Estimated GFR > 60 (>60) mL/min BUN/Creatinine Ratio 10.6 (6-22) Glucose 102 (80-110) mg/dL Calcium 9.1 (8.4-10.2) mg/dL Magnesium 2.0 (1.6-2.3) mg/dL Total Bilirubin 0.3 (0.2-1.3) mg/dL AST 22 (14-36) IU/L ALT 13 (<35) IU/L Alkaline Phosphatase 82 (38-126) U/L Total Creatine Kinase 40 (30-135) U/L Troponin I < 0.012 (0.01-0.034) ng/mL NT-Pro-B Natriuret Pep 60 (<450) pg/mL Total Protein 6.4 (6.3-8.2) g/dL Albumin 3.8 (3.5-5.0) g/dL Globulin 2.6 (1.7-4.1) g/dL Albumin/Globulin Ratio 1.5 (1.0-2.8) Lipase 65 (23-300) U/L Imaging Data Chest x-ray: Radiologist's Impression: PROCEDURE: XR CHEST 1V INDICATIONS: chest pain TECHNIQUE: One view of the chest was acquired. COMPARISON: [facility], CR, XR CHEST 2V, 06/12/2023, 12:59. [facility], CR, XR CHEST 2V, 12/01/2022, 13:30. FINDINGS: Surgical changes and devices: None. Lungs and pleura: Stable chronic interstitial prominence. No new focal pulmonary consolidations. No pleural effusions or pneumothorax. Mediastinum: Mediastinal contours appear normal. Heart size is normal. Bones and chest wall: No suspicious bony lesions. Overlying soft tissues appear unremarkable. IMPRESSION: Stable chronic interstitial prominence, consistent fibrotic changes. No new focal pulmonary consolidations. ECG Data Attestation: I personally reviewed and interpreted this ECG as follows: Interpretation: Sinus rhythm Ventricular rate 81 Normal axis Normal QRS Normal QTC No ST T wave changes MDM Narrative Medical decision making narrative: Troponin is negative after several days of symptoms. Chest x-ray is unremarkable. Her discomfort is reproducible. I have low suspicion that this is ACS. Low suspicion that this is dissection. Low suspicion for pulmonary embolism. I do suspect musculoskeletal etiology given her presentation or exam. Recommended that she continue to take all of her medications as directed contact your primary doctor for follow-up she was rest understanding and agreement with the plan. Discharge Plan Departure Patient Disposition: Home Clinical Impression: Atypical chest pain Instructions: DI for Atypical Chest Pain Activity Restrictions/Additional Instructions: Continue to take all of your medications as directed. Contact your primary doctor for a follow-up. Return to the emergency department for new or worsening symptoms. Prescriptions: New tramadol 50 mg tablet 50 mg PO Q8H PRN (Reason: pain) Qty: 10 0RF No Action diltiazem HCl 240 mg capsule,extended release 24 hr 240 mg PO DAILY Prilosec 10 mg susp,delayed release for recon 40 mg PO DAILY methocarbamol 500 mg tablet 500 mg PO Q8H PRN (Reason: muscle spasm) Qty: 20 0RF benzonatate 100 mg capsule 100 mg PO TID PRN (Reason: cough) 7 Days Qty: 21 2RF guaifenesin 100 mg/5 mL liquid 200 mg PO Q4H PRN (Reason: cough) Qty: 1000 0RF azithromycin 250 mg tablet See Rx Instructions PO .COMPLEX Qty: 6 0RF Rx Instructions: For 250 mg dose pack: take 500 mg today (day 1), then 250 mg for 4 days (days 2-5) PO albuterol sulfate 90 mcg/actuation HFA aerosol inhaler 2 puff inhalation Q4-6H PRN (Reason: shortness of breath or wheezing) Qty: 6.7 0RF codeine-guaifenesin 10-100 mg/5 mL liquid 5 ml PO Q6H Qty: 118 0RF cyanocobalamin (vitamin B-12) [Vitamin B-12] 500 MCG tablet 1,000 mcg PO QDAY Qty: 0 VITAMIN D (Vitamin D3) 1,000 unit PO QDAY Qty: 0 albuterol sulfate [Proventil HFA] 90 MCG/PUFF HFA aerosol inhaler 1 puff INH PRN Qty: 8.5 (DME) [employer] BIPAP Qty: 1 Dose Instruction: As directed Patient Comments: Pressure: IPAP 19 EPAP 11 DME: [place] Rx Instructions: As directed tizanidine 2 mg tablet 2 mg PO Q8H PRN (Reason: muscle spasticity) Qty: 20 0RF carvedilol 6.25 mg tablet 6.25 mg PO BID venlafaxine 150 mg capsule,extended release 24hr 150 mg PO DAILY aspirin 81 mg tablet,delayed release (DR/EC) 81 mg PO DAILY levothyroxine [Synthroid] 125 mcg tablet 125 mcg PO DAILY Referrals: Angelica Garvin PA-C [Primary Care Provider] - Stand Alone Forms: Patient Portal/API
[2023-12-03 20:00] VITALS: BP 131/63; PULSE 79; RESP 22; O2SAT 98
[2023-12-03] MEDS: KETOROLAC 30 MG/ML VIAL 15 MG IV (20:02)
== END 2023-12-03 20:09 | disposition home or self-care (01) ==
PROVIDERS: Emergency Medicine; Emergency Provider Emergency Medicine; PCP Physician Assistant
DX: R07.89 Other chest pain (principal); M54.9 Dorsalgia, unspecified; Z87.891 Personal history of nicotine dependence
CPT/HCPCS: 71045; 80053; 82550; 83690; 83735; 83880; 84484; 85025; 85610; 85730; 93005; 96374; 99284; J1885

== ENCOUNTER 2024-02-14 15:03 | Emergency (ER) | payer MEDICARE, OTHER, SELFPAY ==
--- NOTE | 2024-02-14 15:14 | DI.RAD.S_ITS ---
PROCEDURE: XR RIBS RT MIN 3V W CXR 1V INDICATIONS: fall TECHNIQUE: 2 views of the ribs were acquired, along with a single view chest. COMPARISON: None. FINDINGS: Surgical changes and devices: None. Bones and chest wall: No fractures or dislocations. No suspicious bony lesions. Overlying soft tissues appear unremarkable. Lungs and pleura: No pleural effusions or pneumothorax. Lungs appear clear. Mediastinum: Mediastinal contours appear normal. Heart size is normal. IMPRESSION: No displaced rib fractures or pneumothorax. Dictated by: Pro Watts M.D. on 02/14/2024 at 16:27 Approved by: Pro Watts M.D. on 02/14/2024 at 16:28
--- NOTE | 2024-02-14 15:15 | DI.RAD.S_ITS ---
PROCEDURE: XR SHOULDER RT MIN 2V INDICATIONS: fall TECHNIQUE: 3 views of the shoulder were acquired. COMPARISON: [facility] [place], CR, XR SHOULDER MIN 2VW RT, 09/16/2014, 14:14. FINDINGS: Bones: No fractures or dislocations. Moderate acromioclavicular joint and glenohumeral joint osteoarthritic changes are seen. No suspicious bony lesions. Visualized ribs appear intact. Soft tissues: No suspicious soft tissue calcifications. IMPRESSION: Moderate right shoulder joint osteoarthritis. No acute shoulder fracture or dislocation. Dictated by: Pro Watts M.D. on 02/14/2024 at 16:29 Approved by: Pro Watts M.D. on 02/14/2024 at 16:29
[2024-02-14 15:17] VITALS: BP 143/65; PULSE 85; RESP 16; TEMP 36.4; O2SAT 97
--- NOTE | 2024-02-14 15:24 | DI.CT.S_ITS ---
PROCEDURE: CT HEAD/BRAIN WO CON INDICATIONS: fall iwth hit head TECHNIQUE: Noncontrast 4.5 mm thick angled axial sections acquired from the foramen magnum to the vertex, with coronal and sagittal reformats. For radiation dose reduction, the following was used: automated exposure control, adjustment of mA and/or kV according to patient size. COMPARISON: [facility], CT, CT HEAD/BRAIN WO CON, 01/06/2021, 18:57. FINDINGS: Image quality: Diagnostic. CSF spaces: Basal cisterns are patent. No extra-axial fluid collections. The ventricles are symmetric in size and shape. Brain: No intracranial bleeds or masses. There is cerebral volume loss for age, with resultant ventricular and sulcal prominence. There are periventricular and deep white matter chronic small vessel ischemic changes. There is intracranial internal carotid artery atherosclerosis. Skull and face: Calvarium and visualized facial bones appear intact, without suspicious lesions. Sinuses: Visualized sinuses and mastoids are clear. IMPRESSION: No acute intracranial pathology. Dictated by: Messi Russell M.D. on 02/14/2024 at 16:09 Approved by: Messi Russell M.D. on 02/14/2024 at 16:10
--- NOTE | 2024-02-14 15:24 | DI.CT.S_ITS ---
PROCEDURE: CT CERVICAL SPINE WO CON INDICATIONS: pain after fall TECHNIQUE: Noncontrast 3 mm thick sections acquired from the skull base to the T4 level. Sagittal and coronal reformats were then constructed. For radiation dose reduction, the following was used: automated exposure control, adjustment of mA and/or kV according to patient size. COMPARISON: [facility], CT, C-SPINE WITHOUT CONTRAST, 11/04/2014, 22:19. FINDINGS: Image quality: Excellent. Bones: No fractures or dislocations. Cervical spondylosis. Posterior disc bulges at C5-C6 and C6-C7. Uncovertebral joint hypertrophy results in bilateral foraminal narrowing at both of these levels. Visualized superior ribs are intact. Soft tissues: Prevertebral soft tissues are normal in thickness. No paravertebral hematomas. No apical pneumothoraces. IMPRESSION: No displaced fracture or traumatic subluxation. Cervical spondylosis. Dictated by: Messi Russell M.D. on 02/14/2024 at 16:10 Approved by: Messi Russell M.D. on 02/14/2024 at 16:12
--- NOTE | 2024-02-14 15:26 | ED.FALL ---
HPI - Fall General Chief Complaint: Fall Stated Complaint: Fall, hit head, px in arm and breast, no thinners Time Seen by Provider: 02/14/24 15:24 Source: patient Mode of arrival: Ambulatory History of Present Illness HPI Narrative: Patient was a 79-year-old female who is here for evaluation of left arm and left chest discomfort after taking a fall. States she got her feet caught up under her and she fell. She did hear head. No loss of consciousness. Not on blood thinners. No neck pain. Describes pain throughout her right shoulder and of the right side of her chest when she takes a deep breath. No skin changes. Related Data Home Medications Medication Instructions Recorded Confirmed VITAMIN D (Vitamin D3) 1,000 unit PO QDAY ##0 09/26/12 12/11/23 albuterol sulfate 90 mcg/actuation 1 puff INH PRN ##8.5 09/26/12 12/11/23 aerosol inhaler (Proventil HFA) cyanocobalamin (vitamin B-12) 500 1,000 mcg PO QDAY ##0 09/26/12 12/11/23 mcg tablet (Vitamin B-12) diltiazem HCl 240 mg capsule,24 240 mg PO DAILY 10/14/17 12/11/23 hr,extended release aspirin 81 mg tablet,delayed 81 mg PO DAILY 08/30/18 12/11/23 release carvedilol 6.25 mg tablet 6.25 mg PO BID 08/30/18 12/11/23 venlafaxine 150 mg 150 mg PO DAILY 08/30/18 12/11/23 capsule,extended release 24 hr Respironics Dreamstation Auto BIPAP #1 ea 09/03/18 12/11/23 levothyroxine 125 mcg tablet 125 mcg PO DAILY 01/10/21 12/11/23 (Synthroid) omeprazole magnesium 10 mg oral 40 mg PO DAILY 01/10/21 12/11/23 suspension,delayed release (Prilosec) Previous Rx's Medication Instructions Recorded methocarbamol 500 mg tablet 500 mg PO Q8H PRN muscle spasm #20 03/05/21 tabs benzonatate 100 mg capsule 100 mg PO TID PRN cough 7 days #21 11/21/21 caps guaifenesin 100 mg/5 mL oral liquid 200 mg (10 mL) PO Q4H PRN cough 11/21/21 #1,000 mL albuterol sulfate 90 mcg/actuation 2 puff inhalation Q4-6H PRN 12/01/22 aerosol inhaler shortness of breath or wheezing #6.7 grams azithromycin 250 mg tablet See Rx Instructions PO .COMPLEX #6 12/01/22 tabs codeine 10 mg-guaifenesin 100 mg/5 5 ml PO Q6H #118 mL 04/28/23 mL oral liquid tizanidine 2 mg tablet 2 mg PO Q8H PRN muscle spasticity 11/15/23 #20 tabs tramadol 50 mg tablet 50 mg PO Q8H PRN pain #10 tabs 12/03/23 Allergies Allergy/AdvReac Type Severity Reaction Status Date / Time lisinopril [LISINOPRIL] Allergy Mild ANGIOEDEMA Verified 02/14/24 15:24 Penicillins [PENICILLINS] Allergy Mild RASH Verified 02/14/24 15:24 doxycycline AdvReac GI upset Verified 02/14/24 15:24 Review of Systems Review of Systems ROS Unobtainable: All systems reviewed & are unremarkable except as noted in HPI and below Patient History Medical History Shingles Morbid obesity with body mass index (BMI) of 40.0 to 49.9 Recurrent sinus infections Hypertension Anxiety Depression GERD (gastroesophageal reflux disease) Bronchitis Asthma Allergic rhinitis Excessive daytime sleepiness Primary insomnia Restless legs syndrome (RLS) Social History marital status: details: tania Hay, lives in [place] household members: spouse lives independently: Yes caregiver/support person: No housing: house pets and animals: Yes Smoking Status: Former smoker Smoking Status: Former smoker alcohol intake frequency: 0-2 drinks per day Exam Initial Vital Signs Initial Vital Signs: Vital Signs Temperature 97.5 F L 02/14/24 15:17 Pulse Rate 85 02/14/24 15:17 Respiratory Rate 16 02/14/24 15:17 Blood Pressure 143/65 H 02/14/24 15:17 Pulse Oximetry 97 02/14/24 15:17 Oxygen Delivery Method Room Air 02/14/24 15:17 Const General: cooperative, comfortable and No ill appearing HENHI Head: normal to inspection and normocephalic Mouth: oral mucosae normal Chest Other: Discomfort to palpation right-sided chest wall. No crepitus. Resp Effort & Inspection: normal respiratory effort Auscultation: clear to auscultation bilaterally Back/Spine/Pelvis Cervical Spine: No cervical spinal tenderness Skin General: no rashes or lesions noted Neuro General: patient alert, patient awake, patient oriented x3 and moves all extremities Extrem Other: Full range of motion of right shoulder but does have some discomfort with abduction. Scores GCS [place] coma scale eye opening: Spontaneous [place] coma scale verbal response: Orientated [place] coma scale motor response: Obey commands [place] coma scale total score: 15 Course Orders Ordered: ED Orders 02/14/24 15:14 XR ribs RT min 3V w CXR1V Stat 02/14/24 15:15 XR shoulder RT min 2V Stat 02/14/24 15:24 CT cervical spine wo con Stat CT head/brain wo con Stat Discontinued Medications Ketorolac Tromethamine (Ketorolac 30 Mg/Ml Vial) 30 mg IM NOW ONE Stop: 02/14/24 16:35 Last Admin: 02/14/24 16:37 Dose: 30 mg Documented By: NELL Vital Signs Vital signs: Vital Signs - 8 hr 02/14/24 15:17 02/14/24 16:40 Temperature 97.5 F L Pulse Rate 85 85 Respiratory Rate 16 17 Blood Pressure 143/65 H 123/60 Pulse Oximetry 97 97 Oxygen Delivery Method Room Air Room Air MDM - Fall Imaging Data CT - cervical spine: Radiologist's Impression: PROCEDURE: CT CERVICAL SPINE WO CON INDICATIONS: pain after fall TECHNIQUE: Noncontrast 3 mm thick sections acquired from the skull base to the T4 level. Sagittal and coronal reformats were then constructed. For radiation dose reduction, the following was used: automated exposure control, adjustment of mA and/or kV according to patient size. COMPARISON: [facility], CT, C-SPINE WITHOUT CONTRAST, 11/04/2014, 22:19. FINDINGS: Image quality: Excellent. Bones: No fractures or dislocations. Cervical spondylosis. Posterior disc bulges at C5-C6 and C6-C7. Uncovertebral joint hypertrophy results in bilateral foraminal narrowing at both of these levels. Visualized superior ribs are intact. Soft tissues: Prevertebral soft tissues are normal in thickness. No paravertebral hematomas. No apical pneumothoraces. IMPRESSION: No displaced fracture or traumatic subluxation. Cervical spondylosis. CT scan - head: Radiologist's Impression: PROCEDURE: CT HEAD/BRAIN WO CON INDICATIONS: fall iwth hit head TECHNIQUE: Noncontrast 4.5 mm thick angled axial sections acquired from the foramen magnum to the vertex, with coronal and sagittal reformats. For radiation dose reduction, the following was used: automated exposure control, adjustment of mA and/or kV according to patient size. COMPARISON: [facility], CT, CT HEAD/BRAIN WO CON, 01/06/2021, 18:57. FINDINGS: Image quality: Diagnostic. CSF spaces: Basal cisterns are patent. No extra-axial fluid collections. The ventricles are symmetric in size and shape. Brain: No intracranial bleeds or masses. There is cerebral volume loss for age, with resultant ventricular and sulcal prominence. There are periventricular and deep white matter chronic small vessel ischemic changes. There is intracranial internal carotid artery atherosclerosis. Skull and face: Calvarium and visualized facial bones appear intact, without suspicious lesions. Sinuses: Visualized sinuses and mastoids are clear. IMPRESSION: No acute intracranial pathology. Extremity x-ray #1: Radiologist's Impression: PROCEDURE: XR SHOULDER RT MIN 2V INDICATIONS: fall TECHNIQUE: 3 views of the shoulder were acquired. COMPARISON: [facility] [place], , XR SHOULDER MIN 2VW RT, 09/16/2014, 14:14. FINDINGS: Bones: No fractures or dislocations. Moderate acromioclavicular joint and glenohumeral joint osteoarthritic changes are seen. No suspicious bony lesions. Visualized ribs appear intact. Soft tissues: No suspicious soft tissue calcifications. IMPRESSION: Moderate right shoulder joint osteoarthritis. No acute shoulder fracture or dislocation. rib x-ray: Radiologist's Impression: PROCEDURE: XR RIBS RT MIN 3V W CXR 1V INDICATIONS: fall TECHNIQUE: 2 views of the ribs were acquired, along with a single view chest. COMPARISON: None. FINDINGS: Surgical changes and devices: None. Bones and chest wall: No fractures or dislocations. No suspicious bony lesions. Overlying soft tissues appear unremarkable. Lungs and pleura: No pleural effusions or pneumothorax. Lungs appear clear. Mediastinum: Mediastinal contours appear normal. Heart size is normal. IMPRESSION: No displaced rib fractures or pneumothorax. MDM Narrative Medical decision making narrative: Alert and oriented x3. Not on anticoagulation. CT scans and x-ray show no acute pathology. Patient was follow up with the primary doctor tomorrow. We discussed conservative measures for the discomfort she was having in her right shoulder. She was given return precautions. She expressed understanding and agreement. Discharge Plan Departure Patient Disposition: Home Clinical Impression: Acute pain of right shoulder, Acute chest wall pain, Closed head injury Instructions: How to Prevent Falls Activity Restrictions/Additional Instructions: Continue to take all of your medications as directed. Keep your scheduled appointment with your primary doctor tomorrow. Return to the emergency department for new or worsening symptoms. Prescriptions: No Action diltiazem HCl 240 mg capsule,extended release 24 hr 240 mg PO DAILY Prilosec 10 mg susp,delayed release for recon 40 mg PO DAILY methocarbamol 500 mg tablet 500 mg PO Q8H PRN (Reason: muscle spasm) Qty: 20 0RF benzonatate 100 mg capsule 100 mg PO TID PRN (Reason: cough) 7 Days Qty: 21 2RF guaifenesin 100 mg/5 mL liquid 200 mg PO Q4H PRN (Reason: cough) Qty: 1000 0RF azithromycin 250 mg tablet See Rx Instructions PO .COMPLEX Qty: 6 0RF Rx Instructions: For 250 mg dose pack: take 500 mg today (day 1), then 250 mg for 4 days (days 2-5) PO albuterol sulfate 90 mcg/actuation HFA aerosol inhaler 2 puff inhalation Q4-6H PRN (Reason: shortness of breath or wheezing) Qty: 6.7 0RF codeine-guaifenesin 10-100 mg/5 mL liquid 5 ml PO Q6H Qty: 118 0RF cyanocobalamin (vitamin B-12) [Vitamin B-12] 500 MCG tablet 1,000 mcg PO QDAY Qty: 0 VITAMIN D (Vitamin D3) 1,000 unit PO QDAY Qty: 0 albuterol sulfate [Proventil HFA] 90 MCG/PUFF HFA aerosol inhaler 1 puff INH PRN Qty: 8.5 (DME) Respironics Dreamstation Auto BIPAP Qty: 1 Dose Instruction: As directed Patient Comments: Pressure: IPAP 19 EPAP 11 DME: [facility] Rx Instructions: As directed tramadol 50 mg tablet 50 mg PO Q8H PRN (Reason: pain) Qty: 10 0RF tizanidine 2 mg tablet 2 mg PO Q8H PRN (Reason: muscle spasticity) Qty: 20 0RF carvedilol 6.25 mg tablet 6.25 mg PO BID venlafaxine 150 mg capsule,extended release 24hr 150 mg PO DAILY aspirin 81 mg tablet,delayed release (DR/EC) 81 mg PO DAILY levothyroxine [Synthroid] 125 mcg tablet 125 mcg PO DAILY Referrals: Angelica Garvin PA-C [Primary Care Provider] - Stand Alone Forms: Patient Portal/API/Survey
[2024-02-14] MEDS: KETOROLAC 30 MG/ML VIAL IM (16:37)
[2024-02-14 16:40] VITALS: BP 123/60; PULSE 85; RESP 17; O2SAT 97
== END 2024-02-14 17:11 | disposition home or self-care (01) ==
PROVIDERS: Emergency Provider Emergency Medicine; PCP Physician Assistant
DX: S09.8XXA Other specified injuries of head, initial encounter (principal); R07.89 Other chest pain; M25.511 Pain in right shoulder; W01.0XXA Fall on same level from slipping, tripping and stumbling without subsequent striking against object, initial encounter
CPT/HCPCS: 70450; 71101; 72125; 73030; 96372; 99284; J1885

== ENCOUNTER → 2024-05-20 12:13 | Outpatient (CLI) | payer MEDICARE, OTHER, SELFPAY ==
--- NOTE | 2024-05-20 | DI.RAD.S_ITS ---
PROCEDURE: XR SHOULDER RT MIN 2V INDICATIONS: SHOULDER PAIN TECHNIQUE: Three views of the right shoulder were acquired. COMPARISON: [facility], , XR SHOULDER RT MIN 2V, 02/14/2024, 15:21. FINDINGS: Bones: There are no osseous abnormalities. Acromioclavicular and glenohumeral joints: Mild acromioclavicular and glenohumeral degeneration appreciated. Soft tissues: Minor calcification of the rotator cuff insertion likely represents calcific tendinitis IMPRESSION: Mild degeneration and probable calcific tendinitis at the rotator cuff insertion Dictated by: Catarino Vernon M.D. on 05/21/2024 at 10:00 Approved by: Catarino Vernon M.D. on 05/21/2024 at 10:01
== END ==
PROVIDERS: PCP Physician Assistant; Referring Provider Family Medicine; Visit Provider Family Medicine
DX: M19.011 Primary osteoarthritis, right shoulder (principal); M25.511 Pain in right shoulder
CPT/HCPCS: 73030

== ENCOUNTER 2024-05-28 13:49 | Emergency (ER) | payer MEDICARE, OTHER, SELFPAY ==
[2024-05-28 13:57] VITALS: BP 179/79; PULSE 95; RESP 20; TEMP 36.8; O2SAT 97; BMI 34.7
[2024-05-28 14:16] VITALS: PULSE 78
--- NOTE | 2024-05-28 15:15 | ED_ITS ---
<Statement entered by Pelon Edward DO - 05/28/24 17:30> Dr. Edward: I was immediately available in the department for consultation. I did not actually see the patient. HPI - Extremity Injury (Upper) General Chief Complaint: Extremity Injury, Upper Stated Complaint: Right shoulder pain Time Seen by Provider: 05/28/24 14:06 Source: patient Mode of arrival: Ambulatory History of Present Illness HPI narrative: 79-year-old female with history chronic low back pain, chronic knee pain here today for right shoulder pain that has been ongoing for several months. States she has had multiple falls over the last several months, 2 of which were in the last month. States the 1st fall was May 05, she fell in the bathtub while holding onto a handle and her arm/shoulder got twisted. She fell again on May 17. She was seen on May 20 and had an x-ray done which was negative for fracture or dislocation. X-ray showed some osteoarthritis. Patient states her shoulder pain keeps getting worse and she was seen by a primary care physician yesterday who prescribed her Vicodin. Patient states the pain radiates from her right shoulder down her right arm and to her right shoulder blade as well. She has tried Tylenol without relief. Several years ago she had a small GI bleed and was told to avoid ibuprofen after that so she has not taken any NSAIDs. She denies any numbness or tingling in the arm. States the pain shoots from her shoulder down her arm sometimes all the way to her hand and it makes it hard for her to sleep at night. She was referred to a orthopedic shoe maker but they have not scheduled the appointment yet. Related Data Home Medications Medication Instructions Recorded Confirmed VITAMIN D (Vitamin D3) 1,000 unit PO QDAY ##0 09/26/12 12/11/23 albuterol sulfate 90 mcg/actuation 1 puff INH PRN ##8.5 09/26/12 12/11/23 aerosol inhaler (Proventil HFA) cyanocobalamin (vitamin B-12) 500 1,000 mcg PO QDAY ##0 09/26/12 12/11/23 mcg tablet (Vitamin B-12) diltiazem HCl 240 mg capsule,24 240 mg PO DAILY 10/14/17 12/11/23 hr,extended release aspirin 81 mg tablet,delayed 81 mg PO DAILY 08/30/18 12/11/23 release carvedilol 6.25 mg tablet 6.25 mg PO BID 08/30/18 12/11/23 venlafaxine 150 mg 150 mg PO DAILY 08/30/18 12/11/23 capsule,extended release 24 hr Respironics Dreamstation Auto BIPAP #1 ea 09/03/18 12/11/23 levothyroxine 125 mcg tablet 125 mcg PO DAILY 01/10/21 12/11/23 (Synthroid) omeprazole magnesium 10 mg oral 40 mg PO DAILY 01/10/21 12/11/23 suspension,delayed release (Prilosec) Previous Rx's Medication Instructions Recorded methocarbamol 500 mg tablet 500 mg PO Q8H PRN muscle spasm #20 03/05/21 tabs benzonatate 100 mg capsule 100 mg PO TID PRN cough 7 days #21 11/21/21 caps guaifenesin 100 mg/5 mL oral liquid 200 mg (10 mL) PO Q4H PRN cough 11/21/21 #1,000 mL albuterol sulfate 90 mcg/actuation 2 puff inhalation Q4-6H PRN 12/01/22 aerosol inhaler shortness of breath or wheezing #6.7 grams azithromycin 250 mg tablet See Rx Instructions PO .COMPLEX #6 12/01/22 tabs codeine 10 mg-guaifenesin 100 mg/5 5 ml PO Q6H #118 mL 04/28/23 mL oral liquid tizanidine 2 mg tablet 2 mg PO Q8H PRN muscle spasticity 11/15/23 #20 tabs tramadol 50 mg tablet 50 mg PO Q8H PRN pain #10 tabs 12/03/23 meloxicam 15 mg tablet 15 mg PO DAILY #7 tabs 05/28/24 Allergies Allergy/AdvReac Type Severity Reaction Status Date / Time lisinopril [LISINOPRIL] Allergy Mild ANGIOEDEMA Verified 02/14/24 15:24 Penicillins [PENICILLINS] Allergy Mild RASH Verified 02/14/24 15:24 doxycycline AdvReac GI upset Verified 02/14/24 15:24 Review of Systems Review of Systems ROS Unobtainable: All systems reviewed & are unremarkable except as noted in HPI and below Patient History Medical History Shingles Morbid obesity with body mass index (BMI) of 40.0 to 49.9 Recurrent sinus infections Hypertension Anxiety Depression GERD (gastroesophageal reflux disease) Bronchitis Asthma Allergic rhinitis Excessive daytime sleepiness Primary insomnia Restless legs syndrome (RLS) Social History marital status: details: tania Hay, lives in [place] household members: spouse lives independently: Yes caregiver/support person: No housing: house pets and animals: Yes Smoking Status: Former smoker Smoking Status: Former smoker alcohol intake frequency: 0-2 drinks per day Exam Narrative Exam Narrative: GENERAL: Well-developed, well-nourished, appears stated age. In no acute distress HEAD: Atraumatic. Normocephalic. EYES: Pupils equal round and reactive. Extraocular motions intact. No scleral icterus. No injection or drainage. ENT: Nose without bleeding, purulent drainage. Airway patent. NECK: Trachea midline. Non tender RESPIRATORY: Respiratory rate and effort normal EXTREMITIES: No visible abnormality to the right upper extremity. Patient has good range of motion in all directions but reports pain especially with overhead motions. Patient has generalized tenderness to the anterior shoulder down the entire upper arm, at the elbow, and the upper right back and shoulder blade area. There is no pinpoint tenderness or any palpable deformity. She is full range of motion at the elbow and the wrist. Normal strength and sensation and normal signs of perfusion. NEURO: AOx3. Answers all questions appropriately. Good historian. SKIN: No rash or erythema of visible areas Initial Vital Signs Initial Vital Signs: Vital Signs Temperature 98.2 F 05/28/24 13:57 Pulse Rate 95 H 05/28/24 13:57 Respiratory Rate 20 05/28/24 13:57 Blood Pressure 179/79 H 05/28/24 13:57 Pulse Oximetry 97 05/28/24 13:57 Oxygen Delivery Method Room Air 05/28/24 13:57 Course Vital Signs Vital signs: Vital Signs - 8 hr 05/28/24 13:57 05/28/24 14:16 05/28/24 15:24 Temperature 98.2 F 98.2 F Pulse Rate 95 H 79 Pulse Rate [Right Radial] 78 Respiratory Rate 20 18 Blood Pressure 179/79 H 167/76 H Pulse Oximetry 97 99 Oxygen Delivery Method Room Air Room Air MDM - Extremity Injury (Upper) MDM Narrative Medical decision making narrative: Differential-sprain, strain, rotator cuff tendinopathy, repetitive use injury Patient has already had 2 x-rays of her shoulder over the last 3 months. She h as generalized tenderness of the upper arm but no focal tenderness or pain. She has normal range of motion at the shoulder joint and elbow joint. Advised patient that another x-ray would not be useful today. It is likely she has an issue with the soft tissue structures of her shoulder/arm such as rotator cuff tendinopathy. She was told years ago to avoid ibuprofen due to a GI bleed however think a mild NSAIDs such as a Wilson 2 inhibitor could be beneficial to reduce inflammation. We will do a 7 day trial of meloxicam. Encouraged her to continue icing the shoulder. She will follow up with the orthopedic shoe maker, she may benefit greatly from a corticosteroid injection. Advised patient she may also need physical therapy referral and/or an MRI down the road. At this time she has no evidence of neurovascular compromise or any indication for further workup here in the emergency department. Discharge Plan Departure Patient Disposition: Home Clinical Impression: Chronic right shoulder pain Instructions: DI for Shoulder Tendinopathy Activity Restrictions/Additional Instructions: Thank you for choosing us to care for you today. You were evaluated for your right shoulder pain. You have already had 2 x-rays in the last few months that revealed some arthritis and possible rotator cuff issues in the right shoulder. Based on your examination today, I believe you are experiencing pain due to a tendon or ligament problem in your shoulder. We will try a brief treatment with meloxicam which is an anti-inflammatory. If that is not helping, please follow up with a specialist who you were referred to, to discuss further treatment options such as physical therapy or a corticosteroid injection. Continue icing the shoulder and avoid heavy lifting and repetitive motions with the affected shoulder. Prescriptions: New meloxicam 15 mg tablet 15 mg PO DAILY Qty: 7 0RF No Action diltiazem HCl 240 mg capsule,extended release 24 hr 240 mg PO DAILY Prilosec 10 mg susp,delayed release for recon 40 mg PO DAILY methocarbamol 500 mg tablet 500 mg PO Q8H PRN (Reason: muscle spasm) Qty: 20 0RF benzonatate 100 mg capsule 100 mg PO TID PRN (Reason: cough) 7 Days Qty: 21 2RF guaifenesin 100 mg/5 mL liquid 200 mg PO Q4H PRN (Reason: cough) Qty: 1000 0RF azithromycin 250 mg tablet See Rx Instructions PO .COMPLEX Qty: 6 0RF Rx Instructions: For 250 mg dose pack: take 500 mg today (day 1), then 250 mg for 4 days (days 2-5) PO albuterol sulfate 90 mcg/actuation HFA aerosol inhaler 2 puff inhalation Q4-6H PRN (Reason: shortness of breath or wheezing) Qty: 6.7 0RF codeine-guaifenesin 10-100 mg/5 mL liquid 5 ml PO Q6H Qty: 118 0RF cyanocobalamin (vitamin B-12) [Vitamin B-12] 500 MCG tablet 1,000 mcg PO QDAY Qty: 0 VITAMIN D (Vitamin D3) 1,000 unit PO QDAY Qty: 0 albuterol sulfate [Proventil HFA] 90 MCG/PUFF HFA aerosol inhaler 1 puff INH PRN Qty: 8.5 (DME) Respironics Dreamstation Auto BIPAP Qty: 1 Dose Instruction: As directed Patient Comments: Pressure: IPAP 19 EPAP 11 DME: [place] Rx Instructions: As directed tramadol 50 mg tablet 50 mg PO Q8H PRN (Reason: pain) Qty: 10 0RF tizanidine 2 mg tablet 2 mg PO Q8H PRN (Reason: muscle spasticity) Qty: 20 0RF carvedilol 6.25 mg tablet 6.25 mg PO BID venlafaxine 150 mg capsule,extended release 24hr 150 mg PO DAILY aspirin 81 mg tablet,delayed release (DR/EC) 81 mg PO DAILY levothyroxine [Synthroid] 125 mcg tablet 125 mcg PO DAILY Referrals: Angelica Garvin PA-C [Primary Care Provider] - Stand Alone Forms: Patient Portal/API/Survey
[2024-05-28 15:24] VITALS: BP 167/76; PULSE 79; RESP 18; TEMP 36.8; O2SAT 99
== END 2024-05-28 15:25 | disposition home or self-care (01) ==
PROVIDERS: Emergency Provider Physician Assistant; PCP Physician Assistant
DX: M25.511 Pain in right shoulder (principal)
CPT/HCPCS: 99281

== ENCOUNTER → 2024-06-03 10:15 | Outpatient (CLI) | payer MEDICARE, OTHER, SELFPAY ==
--- NOTE | 2024-06-03 10:17 | DI.MG.S_ITS ---
MM diagnostic mammo BI: 06/03/2024. BI-RADS: 1 CLINICAL: 79-year old female for bilateral diagnostic mammogram. Tyrer-Cuzick lifetime risk of 0.5%. No personal or first-degree family history of breast cancer. The patient reports pain (3 months) in the left breast. PRIOR EXAMS 12/19/2022, 08/17/2021, 05/29/2020, 12/19/2018, 09/24/2017, 05/29/2016. MAMMOGRAPHY TECHNIQUE: 2D and 3D (tomosynthesis) digital mammographic views obtained, with additional images as needed for full coverage. Current study was also evaluated with a Computer Aided Detection (CAD) system. DENSITY A. The breasts are almost entirely fatty. MAMMOGRAPHY FINDINGS Right: No suspicious mass, asymmetry, microcalcification, or other abnormality seen. Left: There is no mammographic correlate to the diffuse left breast pain. No suspicious mass, asymmetry, microcalcification, or other abnormality seen. IMPRESSION: * BIlateral mammograms are stable. * No evidence of malignancy. RECOMMENDATIONS Left * The cause of breast pain is not seen; the need to further evaluate should be based on clinical assessment. Bilateral * Annual screening mammography. COMMENTS: Findings and recommendations were conveyed to the patient during today's evaluation. OVERALL ASSESSMENT CATEGORY BI-RADS-1: Negative. The [employer] recommends annual screening mammography beginning at age 40 for women with average risk of breast cancer. ELECTRONICALLY SIGNED: Claribel Manuel M.D. on 06/03/2024 at 12:02:24 PM PT Interpreting Station ID: [id number]
== END ==
PROVIDERS: PCP Physician Assistant; Referring Provider Physician Assistant; Visit Provider Physician Assistant
DX: N64.4 Mastodynia (principal); R92.313 Mammographic fatty tissue density, bilateral breasts
CPT/HCPCS: 77066; G0279

== ENCOUNTER → 2024-06-23 12:07 | Outpatient (CLI) | payer MEDICARE, OTHER, SELFPAY ==
--- NOTE | 2024-06-23 12:08 | DI.CT.S_ITS ---
PROCEDURE: CT CHEST HIGH RESOLUTION INDICATIONS: ILD follow up TECHNIQUE: Noncontrast 1.0 and 5.0 mm thick contiguous axial sections from the pulmonary apex to the posterior costophrenic angles, with 7 mm thick coronal and sagittal MIP reformats. 1 mm thick dynamic expiratory images acquired through the upper, mid, and lower lungs. 1.0 mm thick axial sections acquired from the brennan to the posterior costophrenic angles in the prone end-inspiration position. For radiation dose reduction, the following was used: automated exposure control, adjustment of mA and/or kV according to patient size. COMPARISON: [facility], CT, CT CHEST HIGH RESOLUTION, 06/15/2023, 16:01. FINDINGS: Image quality: Diagnostic. Lower Neck: No enlarged lymph nodes. Thyroid: Diminutive or absent. Axillae: No enlarged lymph nodes. Chest Wall: Unremarkable. Bones: Diffuse idiopathic skeletal hyperostosis. Degenerative disc disease of the thoracic spine. Lungs and Pleura: Stable diffuse peripheral reticulation without honeycombing. No ground-glass. No significant progression from prior. Patchy air trapping. Stable 8 mm solid nodule in the medial right middle lobe. Heart: Heart size is mildly enlarged, with annular calcification of the mitral valve and three-vessel coronary calcifications. No pericardial effusion. Thoracic Vessels: The aorta and pulmonary arteries demonstrate normal size. Mediastinum and Tejal: No enlarged lymph nodes. Esophagus: No wall thickening. Small hiatal hernia. Mild lower esophageal wall thickening. Upper Abdomen: Visualized upper abdomen solid organs and bowel loops appear normal. IMPRESSION: No significant progression of interstitial lung disease, pattern inconsistent with UIP given the presence of air trapping. No evidence of pulmonary hypertension. Stable 8 mm solid nodule in the right middle lobe, which is benign. Small hiatal hernia. Lower esophageal wall thickening may indicate pathology such as Vaz's esophagus. Consider endoscopic evaluation if not performed recently. Dictated by: Ismael Hernandez M.D. on 06/23/2024 at 13:32 Approved by: Ismael Hernandez M.D. on 06/23/2024 at 13:35
== END ==
LOC: CT 12:08
PROVIDERS: PCP Physician Assistant; Referring Provider Internal Medicine Critical Care Medicine; Visit Provider Internal Medicine Critical Care Medicine
DX: J84.9 Interstitial pulmonary disease, unspecified (principal); R91.1 Solitary pulmonary nodule; K44.9 Diaphragmatic hernia without obstruction or gangrene; M51.34 Other intervertebral disc degeneration, thoracic region; I51.7 Cardiomegaly; I34.81 Nonrheumatic mitral (valve) annulus calcification; I25.10 Atherosclerotic heart disease of native coronary artery without angina pectoris
CPT/HCPCS: 71250

== ENCOUNTER → 2024-06-30 11:35 | Outpatient (CLI) | payer MEDICARE, OTHER, SELFPAY ==
--- NOTE | 2024-06-30 11:36 | DI.MRI.S_ITS ---
PROCEDURE: MR SHOULDER RT WO CON INDICATIONS: RIGHT SHOULDER PAIN AFTER FALL, LTD ROM TECHNIQUE: Noncontrast oblique coronal T2 fast spin echo with fat saturation, oblique sagittal T1 spin echo and T2 fast spin echo with fat saturation, axial T1 spin echo and T2 fast spin echo with fat saturation through the shoulder. COMPARISON: [facility], , MR SHOULDER RT WO CON, 07/05/2018, 17:47. FINDINGS: Image quality: Excellent. Rotator cuff: Low to moderate grade articular and bursal surface partial thickness tear involving distal supraspinatus at its insertion on the humeral head is seen extending to musculotendinous junction. Distal infraspinatus and subscapularis tendinosis is seen. No full-thickness rotator cuff tendon rupture. Sagittal images demonstrate mild supraspinatus muscle atrophy. Bones and bursae: No bone marrow contusions or fractures. [id number] acromioclavicular joint osteoarthritic changes are seen with joint space narrowing, subchondral sclerosis and downward osteophyte formation depressing on musculotendinous junction of supraspinatus. Type 2 acromion without an os acromiale. Moderate to large amount of subacromial subdeltoid bursal fluid is present. No gross loose bodies. Capsule and soft tissues: Signal abnormality and fraying involving superior anterior glenoid labrum with T2 hyperintense signal consistent with superior anterior glenoid labral tear. Signal abnormality is also seen involving posterior glenoid labrum posterior glenoid labrum suggestive of posterior labral tear. Proximal intra-articular portion of long head of biceps tendon is thickened near its proximal insertion. IMPRESSION: 1. Low to moderate grade articular and bursal surface partial thickness tear involving distal supraspinatus extending to musculotendinous junction. Distal infraspinatus and subscapularis tendinosis. No full-thickness rotator cuff tendon rupture. Mild supraspinatus muscle atrophy. 2. [id number] acromioclavicular joint osteoarthritis. No acute fracture or dislocation. Lywc-[id number] glenohumeral joint osteoarthritis. Moderate to large subacromial subdeltoid bursal fluid, no loose bodies. 3. Suggestion of subtle superior anterior glenoid labral tear as well as extensive posterior labral tear. 4. Tendinosis and low-grade intrasubstance partial-thickness tear involving proximal intra-articular portion of long head of biceps. Dictated by: Pro Watts M.D. on 06/30/2024 at 12:38 Approved by: Pro Watts M.D. on 06/30/2024 at 12:46
== END ==
PROVIDERS: PCP Physician Assistant; Referring Provider Physician Assistant; Visit Provider Physician Assistant
DX: S46.011A Strain of muscle(s) and tendon(s) of the rotator cuff of right shoulder, initial encounter (principal); M19.011 Primary osteoarthritis, right shoulder; M25.511 Pain in right shoulder; M79.601 Pain in right arm; W19.XXXA Unspecified fall, initial encounter
CPT/HCPCS: 73221

== ENCOUNTER → 2024-07-10 13:39 | Outpatient (CLI) | payer MEDICARE, OTHER, SELFPAY | PROVIDERS: PCP Physician Assistant; Referring Provider Internal Medicine Critical Care Medicine; Visit Provider Internal Medicine Critical Care Medicine | DX: J84.89 Other specified interstitial pulmonary diseases (principal); Z87.891 Personal history of nicotine dependence | CPT/HCPCS: 94060; 94726; 94729 ==

== ENCOUNTER → 2024-09-06 13:06 | Outpatient (CLI) | payer MEDICARE, OTHER, SELFPAY ==
--- NOTE | 2024-09-06 13:07 | DI.RAD.S_ITS ---
PROCEDURE: XR TIBIA FUBULA RT 2V INDICATIONS: Right leg injury TECHNIQUE: 2 views of the tibia and fibula were acquired. COMPARISON: None. FINDINGS: Bones: No fractures or dislocations. No suspicious bony lesions. Soft tissues: No suspicious soft tissue calcifications or masses. IMPRESSION: No acute bony abnormality. Approved by: Niko Vázquez M.D. on 09/06/2024 at 12:56
== END ==
PROVIDERS: PCP Physician Assistant; Referring Provider Registered Nurse; Visit Provider Registered Nurse
DX: M79.604 Pain in right leg (principal)
CPT/HCPCS: 73590

== ENCOUNTER → 2024-11-20 12:10 | Outpatient (CLI) | payer MEDICARE, OTHER, SELFPAY ==
--- NOTE | 2024-11-20 12:15 | DI.RAD.S_ITS ---
PROCEDURE: XR CHEST 2V INDICATIONS: COVID 14 SEPT, STILL W/ COUGH TECHNIQUE: 2 views of the chest were acquired. COMPARISON: [facility], CR, XR CHEST 1V, 12/03/2023, 17:56. [facility], CR, XR CHEST 2V, 06/12/2023, 12:59. FINDINGS: Surgical changes and devices: None. Lungs and pleura: No focal pulmonary consolidations. Stable mild chronic interstitial prominence. No pleural effusions or pneumothorax. Mediastinum: Mediastinal contours are normal. Heart size is normal. Bones and chest wall: No suspicious bony abnormalities. Soft tissues appear unremarkable. IMPRESSION: No acute cardiopulmonary abnormality is seen. Dictated by: Linwood Camargo M.D. on 11/21/2024 at 14:53 Approved by: Linwood Camargo M.D. on 11/21/2024 at 14:54
== END ==
PROVIDERS: PCP Physician Assistant; Referring Provider Family Medicine; Visit Provider Family Medicine
DX: R05.9 Cough, unspecified (principal); U07.1 COVID-19
CPT/HCPCS: 71046